=== PATIENT | female | born 1955 | race Caucasian/White ===

== ENCOUNTER 2024-09-23 03:25 | Inpatient (IN) | payer MEDICARE, OTHER, SELFPAY ==
[2024-09-22 23:44] VITALS: BP 126/73
[2024-09-22 23:46] VITALS: BP 126/73
[2024-09-23] VITALS (16 sets, daily range): BP systolic 119–145; BP diastolic 47–93; PULSE 73; O2SAT 94; BMI 41.8; BMI 40.5
--- NOTE | 2024-09-23 00:45 | ED.GENMED ---
History of Present Illness
General
Chief Complaint: Breathing Problem
Source: patient, ambulance crew and group home records
Exam Limitations: none
Time Seen by Provider: 09/23/24 00:06
Nursing documentation reviewed up to this point in time: agreed with
History of Present Illness
History of Present Illness:
69-year-old female presents to the emergency department with shortness of breath. She resides at [facility] and nursing called EMS due to her hypoxia. Patient has been a lifelong smoker, continuing to smoke 1 pack/day. Patient does have
dementia. She has been trached in the past.
Vital signs are stable. Patient not hypoxic
Nursing note reviewed. I agree with nursing documentation up to this point in time.
Home Meds and allergies reviewed.
NUMBER AND COMPLEXITY OF PROBLEMS ADDRESSED AT THE ENCOUNTER
� Chronic conditions affecting care: Dementia, persistent smoking, A-fib, hypertension, diabetes
� Acute Exacerbation and/or Progression of Chronic Illness: COPD exacerbation
� Differential Diagnosis includes: COPD, pneumonia
AMOUNT AND/OR COMPLEXITY OF DATA TO BE REVIEWED AND ANALYZED
I performed an independent evaluation of the following and my interpretation is:
EKG:
Pulse Ox: Hypoxic on room air.
University Manager: Sinus Rhythm
CT:
X-rays:
Ultrasound:
Laboratory Studies:
Other:
Review of other/old records: Most recent discharge summary from 07/14/2023
Clinical information was obtained by an independent historian:
Prescriptions/Medications Considered but not given:
Further testing considered but not performed:
RISK OF COMPLICATIONS AND/OR MORBIDITY OR MORTALITY OF PATIENT MANAGEMENT
Social determinants of health affecting care: Good Social Support, lives in group home.
Discussion with other providers:
Escalation of care including admission/observation vs risk of discharge considered: After being observed in the emergency department, patient is stable for discharge.
CRITICAL CARE NOTE:
Total Time (exclusive of procedures):
Update:
Past History
Past History
ED Past Medical History: Arrthythmia (afib), Asthma, CVA, HTN, NIDDM, Psychiatric (anxiety, depression) and Other (Migraine, UTI, )
ED Past Surgical History: Appendectomy, Cholecystectomy, ( X4), Gynecological (Hysterectomy), Tonsilectomy and Other (Trach)
Social History
Tobacco: Smoker
Alcohol: None
Drug: None
Personal:
Living: group home
Phy Exam
General Physical Exam
General Presentation: well appearing and no apparent distress
General Skin: warm and dry
General Habitus: normal
General Mental: alert
General Hydration: appears well hydrated
ENT Exam
ENT Exam: EOMI, pharynx normal, neck supple and normocephalic
Eye Exam
Eye Exam: PERRL, cornea clear and conjunctiva normal
Cardiovascular Exam
Cardiovascular Exam: regular rate/rhythm, no edema, no murmur and normal peripheral pulses
Pulmonary Exam
Pulmonary Exam: accessory muscle use, decreased breath sounds, generalized wheezing and respiratory distress
Gastrointestinal Exam
Gastrointestinal Exam: normal bowel sounds, non tender, soft, no organomegaly, no pulsatile mass and non distended
Neurological Exam
Neurological Exam: alert, oriented x3, no motor deficits and speech normal
Musculoskeletal Exam
Musculoskeletal Exam: full ROM and no edema
Skin Exam
Skin Exam: normal color, warm/dry, no rash and no petechia
Psychiatric Exam
Psychiatric Exam: normal mood/affect
Scores
Heart Failure Risk
Heart Failure Risk Score: Not Applicable
Course
Orders/Labs/Results
Orders:
Orders
09/22/24 23:48
EKG [Electrocardiogram (*1)] Urgent
Reason for Study: Shortness of Breath
COVID-19 Antigen Urgent
Source: Nasal Swab
Complete Blood Count/With Diff Urgent
Comprehensive Metabolic Panel Urgent
Troponin I Urgent
Influenza A+B Rapid Molecular Urgent
NIKKIE Source: Nasal Swab
Specimen Description:
09/22/24 23:49
EKG- Treatment ONCE
09/23/24 00:48
CR Chest - 2 Views Urgent
Comment:
Reason For Exam: dyspnea
09/23/24 03:11
Admit/Transfer Patient As Directed
Co-Sign Provider:
Level of Care: Inpatient admission
Assign to:: IMU- Intermediate Care
Physician / Group: hospitalist
Diagnosis: hypoxia
Reason for Hospitalization: hypoxic respiratory failure
Expected length of stay greater than two midnights?: Yes
ELOS- Estimated Length of Stay in days: 2
I certify the patient meets the requirements for IP care: Yes
PRN Pain Medication Management As Directed
May give lesser potent ordered pain med per pt: Yes
preference::
Protocol:: Medication orders for pain may be administered in a
manner that supports deferring to patient preference
when the pt is:
- Requesting an ordered lesser potent pain medication.
Least to most potent pain medications are defined
as: acetaminophen < NSAID < tramadol < opioids
(morphine, oxycodone, hydromorphone).
- Requesting a lesser dose of the same medication IF
ORDERED.
- Requesting a less intrusive route of administration
if both routes are prescribed by the provider (PO <
IV).
09/23/24 03:13
Code Status As Directed
Resuscitation Status: Full Code
09/23/24 03:15
Venous Blood Gas Stat
%Oxygen/Room Air: 28%
09/23/24 03:19
Add On- LAB Stat
Tests Added?: ammonia level
09/23/24 04:40
Albuterol Nebs [Ventolin Nebules] 2.5 mg INH R Q4HPRN PRN
Bisacodyl [Dulcolax] 10 mg RECTAL [id number] PRN
Docusate W/Senna [Senokot-S] 1 tablet PO BIDPRN PRN
Furosemide [Lasix] 20 mg IV NOW STA
Ondansetron Injectable [Zofran] 4 mg IV Q6HPRN PRN
Polyethylene Glycol Powder [Miralax] 17 grams PO DAILYPRN PRN
09/23/24 04:40
Consult Notification Routine
Specialty to Notify: Pulmonary
PULMONARY CONSULT Routine
Consulting Provider: Bobo Longo
Was physician already notified: No
Reason for consult: new hypoxia, unexplained
VTE Contraindication Routine
VTE Mechanical Device Contraindication: Medical Contraindication
Pharmocologic Contraindication: Medical Contraindication
Activity As Directed
Activity Level: With Assistance
Bedside Glucose Monitoring As Directed
Frequency: AC&HS
Vital Signs As Directed
Frequency: Per unit guidelines
O2 Therapy [RESP] Routine
Nasal Cannula Liter Flow: 2 LPM
Titrate/Wean O2 to maintain O2 sat greater than (%): 93
Peak Flow Rate [RESP] Routine
Quantity: 1
Smoking Cessation Counseling [RESP] Routine
09/23/24 Breakfast
1800 calorie (15 carb) Diabetic
At Your Request: Limited Participation
09/23/24 06:05
Basic Metabolic Panel IN AM
Complete Blood Count/No Diff IN AM
D-Dimer IN AM
Magnesium IN AM
NT-proBNP IN AM
Phenytoin [Dilantin] IN AM
Procalcitonin IN AM
PCT Algorithmm Indication: Respiratory
Valproic Acid Level [Depakane] IN AM
09/23/24 07:30
Insulin Aspart Corrective Mod [Novolog Flexpen-Moderate Resistance] See Protocol SC AC
09/23/24 08:00
Apixaban [Eliquis] 5 mg PO BID
Diclofenac 1% Topical Gel See Protocol TOPICAL TID
Apply 2 or 4 grams as per protocol to the following joints:: Other joint(s)
Other joint/location to apply to:: Right shoulder
Grams to be applied to other indicated joint/location:: 2 grams
Divalproex Delayed Rel. 12 Hr [Depakote (12 Hr Release)] 500 mg PO Q8
Glipizide [Glucotrol] 10 mg PO BID AT 0800,1700
Guaifenesin [Mucinex] 600 mg PO BID
Ipratropium/Albuterol Sulfate [Duoneb] 3 ml INH R QID
Phenytoin [Dilantin] 200 mg PO Q12
Sertraline HCl [Zoloft] 150 mg PO DAILY
mirabegron [Myrbetriq] See Dose Instructions PO DAILY
09/23/24 22:00
Atorvastatin [Lipitor] 40 mg PO HS
Cetirizine HCl [Zyrtec] 10 mg PO HS
Insulin Glargine Lantus [Lantus] 20 units Subcutaneous Insulin Syringe [Syringe-Insulin] 0 unit SC HS
Abnormal Lab Results
09/23/24 09/23/24
00:48 03:15
WBC 17.3 H 10^3/uL
(4.8-10.8)
MCV 101.1 H fL
(81.0-99.0)
MCH 32.7 H pg
(27.0-31.0)
MCHC 32.3 L g/dL
(33.0-37.0)
MPV 11.1 H fL
(7.4-10.4)
Abs Immat Gran (auto) 0.1 H 10^3/uL
(0-0.05)
Absolute Neuts (auto) 12.0 H 10^3/uL
(1.4-6.5)
Absolute Monos (auto) 1.2 H 10^3/uL
(0.1-0.6)
Immature Gran % 0.8 H %
(0-0.5)
Lymphocytes % 18.1 L %
(20.5-51.1)
VBG pH 7.30 L
(7.32-7.43)
VBG pCO2 60 H mmHg
(35-48)
VBG pO2 120 H mmHg
(30-50)
VBG HCO3 29.5 H mmol/L
(22-27)
BUN 20 H mg/dl
(7-17)
Glucose 192 H mg/dl
(70-99)
AST 43 H U/L
(14-36)
09/23/24 00:48
09/23/24 00:48
Vital Signs
Initial and Last Documented VS:
Initial Vital Signs
Pulse Ox
96
09/22/24 23:42
Last Documented Vital Signs
Temp Pulse Resp BP Pulse Ox
98.0 F 77 14 119/64 97
09/22/24 23:44 09/23/24 06:27 09/23/24 04:23 09/23/24 06:27 09/23/24 04:23
*Critical Care Note
Total Time (30-74mins, 75-104mins- exclusive of procedures): Not Applicable
ED Attending Note
-
Portions of this chart may have been created with voice recognition software.� Occasional wrong word or��sound alike� substitutions may have occurred due to the inherent limitations of voice recognition software.
Discharge Plan
Departure
Patient Disposition: Admit
Date of Disposition: 09/23/24
Time of Disposition: 01:52
Admit to: Telemetry
Presentation/result/management discussed w/ accepting MD/DO: Hospitalist
Discharge Problem:
COPD (chronic obstructive pulmonary disease), Hypoxia
Interventions
Interventions:
*Risk Screen - Suicide Last Done: 09/22/24 23:44
*General Assessment Last Done: 09/22/24 23:44
*Neglect/Abuse Screening Last Done: 09/22/24 23:44
ED- Fall Risk Assessment Last Done: 09/22/24 23:59
*ED COVID-19 Vaccine History Last Done: 09/23/24 00:33
*Nursing Disposition Last Done: 09/23/24 04:10
ED- Cardiac Assessment Last Done: 09/22/24 23:59
ED- Pulmonary Assessment Last Done: 09/22/24 23:59
Discharge Date and Time
Discharge Date/Time: 09/23/24 04:10
[2024-09-23 01:07] LABS: % Basophils 0.9 % (0-2); % Eosinophils 3.8 % (0-6); % Immature Granulocytes 0.8 % (0-0.5); % Lymphocytes 18.1 % (20.5-51.1); % Monocytes 7.1 % (1.7-9.3); % Neutrophils 69.3 % (42.2-75.2); Absolute Basophils 0.2 10^3/uL (0-0.2); Absolute Eosinophils 0.7 10^3/uL (0-0.7); Absolute Immature Granulocytes 0.1 10^3/uL (0-0.05); Absolute Lymphocytes 3.1 10^3/uL (1.2-3.4); Absolute Monocytes 1.2 10^3/uL (0.1-0.6); Hematocrit 46.4 % (37.0-47.0); Mean Corp Hgb Conc. 32.3 g/dL (33.0-37.0); Mean Corpuscular Hgb 32.7 pg (27.0-31.0); Mean Corpuscular Volume 101.1 fL (81.0-99.0); Mean Platelet Volume 11.1 fL (7.4-10.4); Nucleated Red Blood Cells % 0 %; Platelet Count 322 10^3/uL (130-400); Red Blood Cell Count 4.59 10^6/uL (4.20-5.40); White Blood Cell Count 17.3 10^3/uL (4.8-10.8)
[2024-09-23 01:16] LABS: COVID-19 Antigen Negative (Negative)
[2024-09-23 01:18] LABS: ALT (SGPT) 34 U/L (0-35); AST (SGOT) 43 U/L (14-36); Blood Urea Nitrogen 20 mg/dl (7-17); Calcium 9.6 mg/dl (8.4-10.2); Carbon Dioxide 23 mmol/L (22-30); Chloride 102 mmol/L (98-107); Estimated Creatinine Clearance 102 ml/min; Glucose 192 mg/dl (70-99); Sodium 139 mmol/L (135-145); Total Bilirubin 0.4 mg/dl (0.2-1.3); Total Protein 7.2 g/dl (6.3-8.2); eGFR > 60.00
[2024-09-23 01:21] LABS: Troponin I < 0.012 ng/ml
[2024-09-23 01:44] LABS: Albumin 4.3 g/dl (3.5-5.0); Alkaline Phosphatase 97 U/L (38-126); Potassium 4.1 mmol/L (3.5-5.1)
--- NOTE | 2024-09-23 02:54 | HPS.HSE ---
Family Physician
-
Family Physician: INTERVIEWE UNKNOWN - PT NOT
Chief Complaint
-
Hypoxia
History of Present Illness
Patient is a 69-year-old female who has a past medical history of COPD not on home O2, hypertension, generalized anxiety disorder, atrial fibrillation, type 2 diabetes, hypertension who presented from living facility at [facility] with hypoxia.
Patient unable to provide much history. She is sleepy but arousable and denies any specific symptoms. Per EMS she was found to be hypoxic to 79% on room air. She was placed on nasal cannula oxygen with improvement to 92% on 2 L. She was found to
be lethargic which is different from apparent baseline. She is known to be incontinent of the bladder and bowel. At baseline she appears to be alert and oriented x 3. Patient states that her breathing is no different from baseline. She denies
any chest pain, cough, dyspnea on exertion or even shortness of breath at rest. He denies having any fevers or chills. Per EMS she had blood glucose of 138 when they found her with otherwise normal vital signs aside from the hypoxia.
Initial workup in the emergency department shows a BP of 130/60, she was satting 96% on 2 L, she was afebrile, pulse was 53 and regular. ECG showed normal sinus rhythm with a rate of 80 and right bundle which is unchanged. He had a white count of
17,000 with normal hemoglobin and platelet counts. Electrolytes BUN/creatinine within normal limits. Troponin was negative. COVID was negative. Influenza was negative. X-ray was obtained which was limited by body habitus but cannot rule out
pulmonary edema or retrocardiac infiltrates.
Medical History
Past Medical History
Past Medical History: Reports Other
Additional Past Medical History:
Ygt-lnpayca-gdtshypxm diabetes
Hypertension
Atrial fibrillation
GERD
Anxiety
Morbid obesity
COPD not on home O2
Past Surgical History: Reports Other
Social History
Alcohol: None
Drug: None
Personal: Single
Living: Assisted Living
Employment: Retired
Family History
Family History: Not pertinent
Allergies / Home Medications
Allergies reflects when Allergies were last updated in [facility].
Home Medications with original date entered in [facility]
Allergy/Medication List:
Allergies
Allergy/AdvReac Type Severity Reaction Status Date / Time
acetaminophen [From Tylenol] Allergy Swelling Verified 09/22/24 23:44
aspirin Allergy Swelling Verified 09/22/24 23:44
bee pollen Allergy Swelling Verified 09/22/24 23:44
Fish Containing Products Allergy Swelling Verified 09/22/24 23:44
Milk Containing Products Allergy Swelling Verified 09/22/24 23:44
(Dairy)
[Milk Containing Products]
Penicillins Allergy Swelling Verified 09/22/24 23:44
phenobarbital Allergy Swelling Verified 09/22/24 23:44
shellfish derived Allergy Swelling Verified 09/22/24 23:44
Home Medications
albuterol sulfate 90 mcg/actuation aerosol inhaler 2 puff inhalation R Q4 PRN wheezing 07/14/23
ammonium lactate 12 % lotion 1 applic topical Q12H 07/14/23
apixaban 5 mg tablet 5 mg PO BID 07/14/23
ascorbic acid (vitamin C) 500 mg tablet 500 mg PO DAILY 07/14/23
atorvastatin 40 mg tablet 40 mg PO HS 07/14/23
benzonatate 100 mg capsule 100 mg PO BID 07/14/23
bisacodyl 10 mg rectal suppository (Dulcolax (bisacodyl)) [address] DAILY PRN if no bm in 24hrs after MOM 07/14/23
cholecalciferol (vitamin D3) 50 mcg (2,000 unit) tablet (Vitamin D3) 50 mcg PO DAILY 07/14/23
clonazepam 0.5 mg tablet 0.5 mg PO DAILY@1300 07/14/23
clonazepam 1 mg tablet 1 mg PO BID 07/14/23
dextromethorphan 20 mg-quinidine 10 mg capsule 1 cap PO Q12H 07/14/23
dextromethorphan 5 mg-benzocaine 6 mg-menthol 10 mg lozenges (Chloraseptic Total) 1 naz PO Q2H PRN cough 07/14/23
dextromethorphan-guaifenesin 5 mg-100 mg/5 mL oral liquid (Robitussin Honey Max DM) 20 ml PO Q4H PRN cough/congestion 07/14/23
diclofenac sodium 1 % topical gel 1 ea topical Q8H 07/14/23
diphenhydramine HCl 25 mg tablet 25 mg PO Q12H PRN allergies 07/14/23
divalproex 500 mg tablet,delayed release 500 mg PO Q8H 07/14/23
gabapentin 600 mg tablet 600 mg PO Q8H 07/14/23
glipizide 5 mg tablet 10 mg PO BID 07/14/23
glucagon 1 mg/0.2 mL subcutaneous auto-injector (Gvoke HypoPen 2-Pack) 1 mg SC ONCE PRN hypoglycemia, blood sugar <50 07/14/23
guaifenesin 600 mg tablet, extended release 12 hr 600 mg PO BID 07/14/23
insulin glargine-yfgn 100 unit/mL subcutaneous solution 26 unit SC .AM AND HS 07/14/23
lactase 3,000 unit tablet (Lactaid) 9,000 unit PO TID 07/14/23
lidocaine 5 % topical patch 1 patch topical DAILY 07/14/23
loperamide 2 mg tablet 2 mg PO Q8H PRN diarrhea 07/14/23
magnesium hydroxide 400 mg/5 mL oral suspension (Milk of Magnesia) 30 ml PO DAILY PRN if no bm x 3 days 07/14/23
melatonin 3 mg tablet 9 mg PO HS 07/14/23
metformin 1,000 mg tablet 1,000 mg PO BID 07/14/23
mirabegron 50 mg tablet,extended release 24 hr (Myrbetriq) 50 mg PO DAILY 07/14/23
omeprazole 20 mg tablet,delayed release 20 mg PO DAILY 07/14/23
ondansetron HCl 4 mg tablet 4 mg PO Q8H PRN nausea/vomiting 07/14/23
phenytoin 50 mg chewable tablet 200 mg PO Q12H 07/14/23
propylene glycol 1 %-glycerin 0.3 % eye drops 2 drp BOTH EYES Q4H PRN eye irratation 07/14/23
sertraline 50 mg tablet 150 mg PO DAILY 07/14/23
sodium phosphates 19 gram-7 gram/118 mL enema (Fleet Enema) [address] DAILY PRN if no bm in 24hrs after bisacodyl 07/14/23
tramadol 50 mg tablet 50 mg PO Q8H PRN moderate pain 07/14/23
trazodone 50 mg tablet 50 mg PO HS 07/14/23
cetirizine 10 mg capsule (Zyrtec) 10 mg PO HS 09/23/24
cyclobenzaprine 5 mg tablet 5 mg PO DAILY PRN muscle pain 09/23/24
diclofenac sodium 1 % topical gel 1 ea topical BID 09/23/24
fluticasone propionate 50 mcg/actuation nasal spray,suspension 2 spray intranasal DAILY 09/23/24
lidocaine 5 % topical patch 1 patch topical DAILY 09/23/24
loratadine 10 mg tablet (Claritin) 10 mg PO DAILY 09/23/24
mineral oil-hydrophil petrolat topical ointment 1 applic topical BID 09/23/24
niacin 500 mg tablet (Niacor) 500 mg PO HS 09/23/24
phenol-phenolate sodium lozenges 1 naz Q2H PRN cough 09/23/24
sodium chloride 0.65 % nasal spray aerosol (Saline Mist) 2 spray intranasal Q4H 09/23/24
Review of Systems
-
History Source: Patient
Constitutional: Reports No Symptoms
EENT: Reports No Symptoms
Respiratory: Reports No Symptoms
Cardiac: Reports No Symptoms
Abdomen/GI: Reports No Symptoms
: Reports No Symptoms
Musculoskeletal: Reports No Symptoms
Skin: Reports No Symptoms
Neurological: Reports No Symptoms
Endocrine: Reports No Symptoms
Hematologic/Lymphatic: Reports No Symptoms
Psych: Reports No Symptoms
Physical Exam
Vital Signs
Vital Signs
Temp Pulse Resp BP Pulse Ox
98.0 F 86 19 129/61 97
09/22/24 23:44 09/23/24 02:45 09/23/24 02:45 09/23/24 02:00 09/23/24 02:45
Physical Exam
General: Well Developed, Well Nourished, Comfortable and Morbidly Obese
HEENT: NormoCephalic, Anicteric, Moist mucous membranes, Atraumatic, PERRLA, No Ptosis and Oxygen
Respiratory: Clear, Non Labored Respirations and Other (No wheezes appreciated, no crackles appreciated however listening was mostly anterior and unable to rotate patient for posterior auscultation.)
Cardiac: S1/S2 and Regular Rhythm
Breast: Deferred by me
GI: Soft, Non Tender and Non Distended
Rectal: Deferred by Provider
Genito-urinary: Deferred by me
Musculoskeletal: No Clubbing, No Cyanosis and No Edema
Skin: Warm
Neuro: AO x 3
Hematologic/Lymphatic: No Lymphadenopathy
Psych: Calm
Laboratory Results
-
09/23/24 00:48
09/23/24 00:48
Laboratory Results
Total Bilirubin 0.4 mg/dl (0.2-1.3) 09/23/24 00:48
AST 43 U/L (14-36) H 09/23/24 00:48
ALT 34 U/L (0-35) 09/23/24 00:48
Alkaline Phosphatase 97 U/L (38-126) 09/23/24 00:48
Troponin I < 0.012 ng/ml 09/23/24 00:48
Data Reviewed
-
Diagnostic Radiology: Image Personally Visualized and interpreted
Medical Tests (Nuc Med, Echo, EKG etc): Image Personally Visualized and interpreted
Lab Data: Labs Reviewed by me
Old Records: Reviewed
Impression/Plan
-
IMPRESSION:
Patient with multiple comorbidities who is nonambulatory at baseline presents to the emergency department after being found to be hypoxic. Patient herself denies symptoms including cough chest pain orthopnea or PND. She is somnolent but easily
arousable. Medication list raises concern for polypharmacy and respiratory depression. Initial examination in the ED shows crowding on the chest x-ray but no obvious infiltrates. She has a leukocytosis but labs are otherwise unremarkable. COVID
was negative. Flu was negative. ECG without acute ischemia and troponin was negative. She denies history of TAYLER or OHS.
PLAN:
1. Hypoxia - Responded to supplemental oxygen. No O2 requirement at baseline. No wheezing. No crackles. No history of CHF. No pulmonary edema. Could have mild COPD exacerbation but not obvious on exam. Life-long smoker and still smokes.
- admit to telemetry
- check blood gas, if acidemic, will place on bipap overnight for support
- check bnp and echo
- nebs RTC for now, hold abx and steroids, check procalcitonin
- lasix 20mg iv trial but no current evidence for CHF
- d-dimer, ammonia and depakote level an
- hold sedatives except for antiepileptic drugs [holding trazodone, gabapentin, clonazepam, flexeril, melatonin and tramadol for now]
- Pulmonary consultation
2. AFIB
- continue apixaban
- no current rate agents.
3. Seizure d/o
- check dilantin level
- continue phenytoin 200mg bid
- continue depakote for now pending levels
4. DM II
- glargine 20 units hs (on 26 at home)
- insulin sliding scale moderate
- hold metformin
- continue glipizide
DVT PPX - on apixaban
Code status - full code
[2024-09-23 03:24] LABS: Venous Blood Gas B.E. 1.4 mmol/L (-4 to +4); Venous Blood Gas HCO3 29.5 mmol/L (22-27); Venous Blood Gas O2 Sat % 99.7 %; Venous Blood Gas pCO2 60 mmHg (35-48); Venous Blood Gas pO2 120 mmHg (30-50)
[2024-09-23 03:35] LABS: Venous Blood Gas O2 Therapy 28
--- NOTE | 2024-09-23 06:01 | PTCARENOTE ---
pt received from ED RN. Pt AAOx3, does have slight delay when answering questions, does not seem to be the best historian. From [facility]. pt does answer yes to abuse screening questions but denies wanting to talk to social welfare clerk. Admission questions
done to the best of thus RNs ability. pt frequently answers yes/ no to questions. Pt on 3L o2 satting 95%, lungs clear, no cough. NSR on monitor. VSS. Pt inc urine, PW in use. safe environment maintained, call light in reach.
[2024-09-23] MEDS: LASIX 20 MG IV (06:27)
[2024-09-23 06:30] LABS: Hematocrit 45.5 % (37.0-47.0); Hemoglobin 14.8 g/dL (12.0-16.0); Mean Corp Hgb Conc. 32.5 g/dL (33.0-37.0); Mean Corpuscular Hgb 32.7 pg (27.0-31.0); Mean Corpuscular Volume 100.4 fL (81.0-99.0); Mean Platelet Volume 11.1 fL (7.4-10.4); Platelet Count 295 10^3/uL (130-400); Red Blood Cell Count 4.53 10^6/uL (4.20-5.40); Red Cell Dist. Width 13.9 % (11.5-14.5); White Blood Cell Count 12.4 10^3/uL (4.8-10.8)
[2024-09-23 06:36] LABS: Ammonia 34 umol/L (9-30)
[2024-09-23 06:39] LABS: D-Dimer < 0.27 ug/mlFEU (0.00-0.50)
[2024-09-23 06:51] LABS: Dilantin 11.9 ug/ml (10-20)
[2024-09-23 06:53] LABS: NT-proBNP 196 pg/ml
[2024-09-23 07:05] LABS: Blood Urea Nitrogen 19 mg/dl (7-17); Calcium 9.8 mg/dl (8.4-10.2); Carbon Dioxide 28 mmol/L (22-30); Chloride 100 mmol/L (98-107); Estimated Creatinine Clearance 86 ml/min; Glucose 124 mg/dl (70-99); Magnesium 1.8 mg/dl (1.6-2.3); Sodium 138 mmol/L (135-145); eGFR > 60.00
[2024-09-23 07:13] LABS: Procalcitonin < 0.05 ng/ml (0.0-0.25)
[2024-09-23] MEDS: DUONEB 3 ML INH ×4 (07:24→20:14)
[2024-09-23] MEDS: ZOLOFT 150 MG PO (09:07)
[2024-09-23] MEDS: ELIQUIS 5 MG PO ×2 (09:07→19:52)
[2024-09-23] MEDS: NOVOLOG FLEXPEN-MODERATE RESISTANCE SC (09:07)
[2024-09-23] MEDS: DILANTIN 200 MG PO ×2 (09:07→19:52)
[2024-09-23] MEDS: MUCINEX 600 MG PO ×2 (09:07→19:51)
[2024-09-23] MEDS: DICLOFENAC 1% TOPICAL GEL 100 GRAM TOPICAL ×3 (09:08→21:27)
[2024-09-23] MEDS: DEPAKOTE (12 HR RELEASE) 500 MG PO ×3 (09:08→23:27)
[2024-09-23] MEDS: GLUCOTROL 10 MG PO ×2 (09:08→17:26)
[2024-09-23 09:10] LABS: Glucose - Point of Care 109 mg/dl (70-99)
--- NOTE | 2024-09-23 09:18 | PTCARENOTE ---
Patient received from educator senior clinical. Patient resting comfortably in bed. AAO but some confused speech, VSS. No events noted overnight. No complaints of pain at this time. Currently on 3L N/C, will wean as tolerated. Purewick in place. No tests
scheduled at this time. Call coppola in reach.
--- NOTE | 2024-09-23 09:51 | CON.PUL ---
Consultation
Consultation Request
Date/Time Consultation Requested: 09/23/2024-8 AM
Date/Time Consultation Performed: 09/23/2024-8:30 AM
Requesting Provider: Hospitalist
Performing Provider: Dr. Nielson
Reason for Consultation: Shortness of breath
Medical History
-
Chief Complaint: Shortness of breath
History of Present Illness:
69-year-old female smoker with a history of COPD, hypertension, anxiety, atrial fibrillation, diabetes who presented with some lethargy and shortness of breath found to be hypoxemic and pulmonary consulted for COPD exacerbation/hypoxemia 09/23/2024.
Patient was sleeping, snoring, mild apneas when I walked into the room. She was arousable and answer questions appropriately. She denies any shortness of breath at rest but admits to shortness of breath with exertion and denies any chest pain,
chest tightness, chest congestion, mucous, abdominal pain, or increased swelling.
Past Medical History
Past Medical History: None (COPD. Cigarette smoker. Hypertension. Atrial fibrillation. GERD. Anxiety. Morbid obesity. Obstructive sleep apnea suspected.)
Social History
Tobacco: Smoker (1 pack/day for 55 years)
Alcohol: None
Drug: None
Personal: Single
Living: Assisted Living
Occupational Exposures: No known asbestos exposure
Environmental Exposures: No known tuberculosis exposure
Family History
Family History: Reviewed & Not Pertinent
Allergies / Home Medications
Allergies
Allergy/AdvReac Type Severity Reaction Status Date / Time
acetaminophen [From Tylenol] Allergy Swelling Verified 09/22/24 23:44
aspirin Allergy Swelling Verified 09/22/24 23:44
bee pollen Allergy Swelling Verified 09/22/24 23:44
Fish Containing Products Allergy Swelling Verified 09/22/24 23:44
Milk Containing Products Allergy Swelling Verified 09/22/24 23:44
(Dairy)
[Milk Containing Products]
Penicillins Allergy Swelling Verified 09/22/24 23:44
phenobarbital Allergy Swelling Verified 09/22/24 23:44
shellfish derived Allergy Swelling Verified 09/22/24 23:44
Home Medications
�Medication �Instructions �Recorded �Confirmed �Last Taken �Type
albuterol sulfate 90 mcg/actuation 2 puff inhalation R Q4 PRN wheezing 07/14/23 09/23/24 Unknown History
aerosol inhaler
ammonium lactate 12 % lotion 1 applic topical Q12H 07/14/23 09/23/24 Unknown History
apixaban 5 mg tablet 5 mg PO BID 07/14/23 09/23/24 Unknown History
ascorbic acid (vitamin C) 500 mg 500 mg PO DAILY 07/14/23 09/23/24 Unknown History
tablet
atorvastatin 40 mg tablet 40 mg PO HS 07/14/23 09/23/24 Unknown History
benzonatate 100 mg capsule 100 mg PO BID 07/14/23 09/23/24 Unknown History
bisacodyl 10 mg rectal suppository 10 mg SC DAILY PRN if no bm in 07/14/23 09/23/24 Unknown History
(Dulcolax (bisacodyl)) 24hrs after MOM
cholecalciferol (vitamin D3) 50 50 mcg PO DAILY 07/14/23 09/23/24 Unknown History
mcg (2,000 unit) tablet (Vitamin
D3)
clonazepam 0.5 mg tablet 0.5 mg PO DAILY@1300 07/14/23 09/23/24 Unknown History
clonazepam 1 mg tablet 1 mg PO BID 07/14/23 09/23/24 Unknown History
dextromethorphan 20 mg-quinidine 1 cap PO Q12H 07/14/23 09/23/24 Unknown History
10 mg capsule
dextromethorphan 5 mg-benzocaine 6 1 naz PO Q2H PRN cough 07/14/23 09/23/24 Unknown History
mg-menthol 10 mg lozenges
(Chloraseptic Total)
dextromethorphan-guaifenesin 5 20 ml PO Q4H PRN cough/congestion 07/14/23 09/23/24 Unknown History
mg-100 mg/5 mL oral liquid
(Robitussin Honey Max DM)
diclofenac sodium 1 % topical gel 1 ea topical Q8H 07/14/23 09/23/24 Unknown History
diphenhydramine HCl 25 mg tablet 25 mg PO Q12H PRN allergies 07/14/23 09/23/24 Unknown History
divalproex 500 mg tablet,delayed 500 mg PO Q8H 07/14/23 09/23/24 Unknown History
release
gabapentin 600 mg tablet 600 mg PO Q8H 07/14/23 09/23/24 Unknown History
glipizide 5 mg tablet 10 mg PO BID 07/14/23 09/23/24 Unknown History
glucagon 1 mg/0.2 mL subcutaneous 1 mg SC ONCE PRN hypoglycemia, 07/14/23 09/23/24 Unknown History
auto-injector (Gvoke HypoPen blood sugar <50
2-Pack)
guaifenesin 600 mg tablet, 600 mg PO BID 07/14/23 09/23/24 Unknown History
extended release 12 hr
insulin glargine-yfgn 100 unit/mL 26 unit SC .AM AND HS 07/14/23 09/23/24 Unknown History
subcutaneous solution
lactase 3,000 unit tablet (Lactaid) 9,000 unit PO TID 07/14/23 09/23/24 Unknown History
lidocaine 5 % topical patch 1 patch topical DAILY 07/14/23 09/23/24 Unknown History
loperamide 2 mg tablet 2 mg PO Q8H PRN diarrhea 07/14/23 09/23/24 Unknown History
magnesium hydroxide 400 mg/5 mL 30 ml PO DAILY PRN if no bm x 3 07/14/23 09/23/24 Unknown History
oral suspension (Milk of Magnesia) days
melatonin 3 mg tablet 9 mg PO HS 07/14/23 09/23/24 Unknown History
metformin 1,000 mg tablet 1,000 mg PO BID 07/14/23 09/23/24 Unknown History
mirabegron 50 mg tablet,extended 50 mg PO DAILY 07/14/23 09/23/24 Unknown History
release 24 hr (Myrbetriq)
omeprazole 20 mg tablet,delayed 20 mg PO DAILY 07/14/23 09/23/24 Unknown History
release
ondansetron HCl 4 mg tablet 4 mg PO Q8H PRN nausea/vomiting 07/14/23 09/23/24 Unknown History
phenytoin 50 mg chewable tablet 200 mg PO Q12H 07/14/23 09/23/24 Unknown History
propylene glycol 1 %-glycerin 0.3 2 drp BOTH EYES Q4H PRN eye 07/14/23 09/23/24 Unknown History
% eye drops irratation
sertraline 50 mg tablet 150 mg PO DAILY 07/14/23 09/23/24 Unknown History
sodium phosphates 19 gram-7 118 ml SC DAILY PRN if no bm in 07/14/23 09/23/24 Unknown History
gram/118 mL enema (Fleet Enema) 24hrs after bisacodyl
tramadol 50 mg tablet 50 mg PO Q8H PRN moderate pain 07/14/23 09/23/24 Unknown History
trazodone 50 mg tablet 50 mg PO HS 07/14/23 09/23/24 Unknown History
cetirizine 10 mg capsule (Zyrtec) 10 mg PO HS 09/23/24 09/23/24 Unknown History
cyclobenzaprine 5 mg tablet 5 mg PO DAILY PRN muscle pain 09/23/24 09/23/24 Unknown History
diclofenac sodium 1 % topical gel 1 ea topical BID 09/23/24 09/23/24 Unknown History
fluticasone propionate 50 2 spray intranasal DAILY 09/23/24 09/23/24 Unknown History
mcg/actuation nasal
spray,suspension
lidocaine 5 % topical patch 1 patch topical DAILY 09/23/24 09/23/24 Unknown History
loratadine 10 mg tablet (Claritin) 10 mg PO DAILY 09/23/24 09/23/24 Unknown History
mineral oil-hydrophil petrolat 1 applic topical BID 09/23/24 09/23/24 Unknown History
topical ointment
niacin 500 mg tablet (Niacor) 500 mg PO HS 09/23/24 09/23/24 Unknown History
phenol-phenolate sodium lozenges 1 naz Q2H PRN cough 09/23/24 09/23/24 Unknown History
sodium chloride 0.65 % nasal spray 2 spray intranasal Q4H 09/23/24 09/23/24 Unknown History
aerosol (Saline Mist)
Review of Systems
-
Unable to Obtain full review of systems at this time due to: Other (Per HPI)
Vitals / Labs / Diagnostic Testing
Vital Signs
Temp Pulse Resp BP Pulse Ox
98.0 F 74 18 119/64 97
09/23/24 07:26 09/23/24 07:28 09/23/24 07:28 09/23/24 06:27 09/23/24 07:28
Lab Data
09/23/24 06:05
09/23/24 06:05
Microbiology
09/23/24 00:48 Nasal Swab Influenza Types A & B (KAREN) - Final
Negative for Influenza A & B, NAAT
Negative results must be combined with clinical observations
and patient history.
Nucleic Acid Amplification test (NAAT)performed on the
[employer] platform.
Diagnostic Testing:
Physical Exam
-
Exam:
Well-nourished and well-developed in no apparent distress
HEENT-atraumatic, normocephalic, thick neck
Neck-supple, no JVD, no bruit
Heart-regular rate and rhythm-no murmurs, rubs or gallops
Chest with diminished breath sounds, prolonged expiratory time, rare basilar crackles and forced expiratory wheezes bilaterally
Back-no tenderness
Abdomen-soft, nontender, nondistended, no hepatosplenomegaly
Extremities-no cyanosis, clubbing, lower extremity edema
Integument-intact, no rashes, lesions or ecchymosis
Neurology-alert and oriented, nonfocal motor and sensory exam
Assessment
-
69-year-old female smoker with a history of COPD, hypertension, anxiety, atrial fibrillation, diabetes who presented with some lethargy and shortness of breath found to be hypoxemic and pulmonary consulted for COPD exacerbation/hypoxemia 09/23/2024.
Suspect advanced COPD with acute exacerbation
Acute on top of chronic hypercapnia
VBG 09/23/2024--60/120/7.30
Leukocytosis
Hyperglycemia
CHF-EF unknown
TAYLER/obesity hypoventilation suspected
Conditions present prior to admission:
COPD.
Cigarette smoker.
Hypertension.
Atrial fibrillation.
GERD.
Anxiety.
Morbid obesity.
Obstructive sleep apnea suspected.
Plan
Respiratory decompensation likely due to underlying COPD and possible volume overload
Supplemental oxygen as needed
Aspiration precautions
DuoNebs
Pulmicort nebulizers
Mucinex
Check spirometry-suspect severe obstructive lung disease
Obstructive sleep apnea also suspected
BiPAP as needed-suspect component of chronic hypercapnia/obesity hypoventilation syndrome
D-dimer negative
Check cultures
Observe off antibiotics
Procalcitonin negative
Monitor leukocytosis, temperature curve and signs of infection
Gentle diuresis
Check echocardiogram
Monitor renal function, electrolytes, intake/output, lower extremity edema and weight
Replace electrolytes as needed
Monitor blood sugar
Insulin supplementation as needed
Smoking cessation counseling-counseling provided-'I do not want to'
Nicotine patch if needed
DVT prophylaxis-on Eliquis
Nutrition
Early mobilization
Reviewed with nursing
Outpatient pulmonary/sleep disorders follow-up recommended-advised the patient-she will 'think about it'-information will be left on chart
Diagnostic data:
Chest x-ray 09/23/2024-mild CHF
Data Reviewed
-
EKG: Report reviewed by me
Radiology: Image personally visualized and interpreted and Report reviewed by me
Medical Tests (Nuc Med, Echo etc): Report reviewed by me
Labs: Labs reviewed by me
Old Records: Reviewed
Total Time Spent with Patient (in minutes): 55
--- NOTE | 2024-09-23 11:52 | CM ---
Patient seen at bedside in IMU. Patient is LTC from [facility] and uses a wheelchair but will walk with Therapy. Patient has history of TBI per liaison and smoking is very important to her. CM will send referral via all scripts. If patient
medically ready for discharge over weekend. please call Ayla at [phone]. Patient report to [phone]/fax [phone]. CM will continue to follow for discharge planning needs.
Plan; return to SNF when medically appropriate.
[2024-09-23] MEDS: NOVOLOG FLEXPEN-MODERATE RESISTANCE 1 UNITS SC ×2 (13:35→17:27)
[2024-09-23 13:46] LABS: Glucose - Point of Care 187 mg/dl (70-99)
--- NOTE | 2024-09-23 15:03 | PTOTSP ---
Dysphagia Evaluation
Patient with mild oral stage differences related to missing dentition. Risk factors for dysphagia present: COPD, GERD, TBI. Chest X-ray without PNA.
Recommend:
1. Regular, Thin Liquids
2. Medications as best tolerated
3. Strategies: upright to 90 degrees, partial assistance, small single sips/bites, slow rate, reflux precautions
4. Oral care 2-3x daily
5. Will f/u briefly at the acute care level. If concerned for aspiration component, consider video swallow study.
[2024-09-23] MEDS: DECADRON 4 MG PO ×2 (15:39→21:27)
[2024-09-23 17:35] LABS: Glucose - Point of Care 186 mg/dl (70-99)
[2024-09-23] MEDS: ZOFRAN 4 MG IV (17:38)
--- NOTE | 2024-09-23 17:47 | W.PN.UPDATE ---
Update Note
Progress Note Update
Admitted early hours of this morning.
Admitted with hypoxia. Patient with a TBI and poor historian.
Without respiratory distress but requiring oxygen.
She is got bilateral expiratory wheeze and some basilar crackles.
Will get a speech eval to rule out any aspiration.
Appreciate pulmonary input. Would add steroids for acute reactive airway disease and empirical doxycylcine for possible COPD flare.
ECHO with normal EF. No significant VHD.
--- NOTE | 2024-09-23 18:32 | W.PN.HOSP.TC ---
Today's Communication/Plan
-
.
Assessment / Plan
Assessment / Plan
1. COPD with Acute Exacerbation
-VBG: pH 7.3, pCO2 60, pO2 120, HCO3 29.5.
-2 L by nasal cannula; wean as tolerated. Patient denies home O2 use.
-Aspiration precautions, swallow study today.
-Patient is cleared for CLD diet.
-DuoNebs, Pulmicort, Mucinex
-Consider spirometry; appreciate pulm
-24 hours of dexamethasone 4 g every 8 hours
-Empirical doxycycline
2. Leukocytosis
-WBC 17 on admission, 12.4 this morning.
-Procalcitonin negative, monitor leukocytosis/temperature/signs of infection
3. Possible TAYLER
-Appreciate pulm, consider as needed BiPAP.
4. Type 2 diabetes mellitus
-Insulin glargine 20 units nightly
-Insulin sliding scale
-Hold metformin
-Continue glipizide
5. Seizure disorder
-Continue home meds
6. A-fib
-Continue Eliquis
-No current rate control agents
Full code/home Eliquis
Anticipated Discharge: 24 - 48 hours
Subjective/Interval History
-
Date of Service: September 23, 2024
Patient seen and examined by resting comfortably in bed. Patient is a poor historian. Patient has history of COPD, however without home O2 and was 79% on room air at [facility] yesterday. Oxygen saturation rebounds back into the 90s on 2 L
nasal cannula. Patient is currently without respiratory distress however still requiring 2 L by nasal cannula.
Objective Data
-
Labs:
Laboratory Results
09/23/24
06:05
Sodium 138
Potassium 4.0
Chloride 100
Carbon Dioxide 28
BUN 19 H
Creatinine 0.7
Glucose 124 H
Calcium 9.8
Vital Signs:
Vital Signs
Temp Pulse Resp BP Pulse Ox
98.9 F 87 15 125/93 85
09/23/24 15:15 09/23/24 18:00 09/23/24 18:00 09/23/24 16:02 09/23/24 18:00
I&O
09/22/24 09/23/24 09/24/24
06:59 06:59 06:59
Intake Total 240 / 240
Output Total 600 / 600
Balance -360 / -360
Review of Systems
-
History Source: Patient
All other systems: Reviewed and negative
Physical Exam
-
General: No Apparent Distress, Comfortable and Other (on 2L by NC)
HEENT: Normocephalic, Atraumatic and Other (previous tracheostomy scar)
Respiratory: Clear to Auscultation, Wheezes and Crackles
Cardiac: Regular Rhythm and S1/S2
GI: Soft and Nontender
Musculoskeletal: No Clubbing, No Cyanosis and No Edema
Neuro: Awake and Alert
Psych: Calm
Data Reviewed
-
Diagnostic Radiology: Report Reviewed by me
Labs: Labs Reviewed by me
[2024-09-23] MEDS: VIBRAMYCIN 100 MG PO (19:51)
[2024-09-23] MEDS: PULMICORT 0.5 MG INH (20:14)
[2024-09-23] MEDS: ZYRTEC 10 MG PO (21:27)
[2024-09-23] MEDS: LANTUS 0.2 UNITS SC (21:27)
[2024-09-23] MEDS: LIPITOR 40 MG PO (21:27)
[2024-09-23 21:37] LABS: Glucose - Point of Care 214 mg/dl (70-99)
[2024-09-24] VITALS (8 sets, daily range): BP systolic 113–159; BP diastolic 54–81; BMI 40.1
--- NOTE | 2024-09-24 | PTCARENOTE ---
Assumed care of patient at 1900, nursing assessment completed and as documented. Hygiene care provided, repositioned for comfort, medications given without difficulty. IVT notified of poor access and new IV placed, see worklist. VSS, call coppola
within reach, bed alarmed, care ongoing.
[2024-09-24] MEDS: DECADRON 4 MG PO (05:28)
[2024-09-24] MEDS: PULMICORT 0.5 MG INH ×2 (07:33→19:55)
[2024-09-24] MEDS: DUONEB 3 ML INH ×2 (07:33→19:55)
[2024-09-24] MEDS: NOVOLOG FLEXPEN-MODERATE RESISTANCE SC (08:18)
[2024-09-24 08:28] LABS: Glucose - Point of Care 138 mg/dl (70-99)
--- NOTE | 2024-09-24 08:41 | W.PN.HOSP.TC ---
Today's Communication/Plan
-
Tx to tele
Assessment / Plan
Assessment / Plan
1. COPD with Acute Exacerbation
-VBG: pH 7.3, pCO2 60, pO2 120, HCO3 29.5.
-2 L by nasal cannula; wean as tolerated. Patient denies home O2 use.
-Speech eval noted-cleared for regular and thin liquids
-DuoNebs, Pulmicort, Mucinex
-appreciate pulm input
-Improved wheeze. Decrease the steroids.
-Continue with empirical doxycycline
Chest x-ray suggest mild pulmonary edema but cannot rule out underlying chronic interstitial lung disease. Echo with normal EF and no significant valvular heart disease on this admission. BNP was within the normal limits. Clinically no lower
extremity edema or JVD. Doubt CHF.
2. Leukocytosis
-WBC 17 on admission, 12.4 this morning.
-Procalcitonin negative, monitor leukocytosis/temperature/signs of infection
-Continue with empirical doxycycline
3. Possible TAYLER
-Appreciate pulm, consider as needed BiPAP.
4. Type 2 diabetes mellitus
-Insulin glargine 20 units nightly
-Insulin sliding scale
-Hold metformin
-Continue glipizide
5. Seizure disorder
-Continue home meds
6. A-fib
-Continue Eliquis
-No current rate control agents
Full code/home Eliquis
Discussed with RN
Transfer to tele
Anticipated Discharge: 24 - 48 hours
Subjective/Interval History
-
Date of Service: September 24, 2024
Patient with TBI and has cognitive impairment.
Oriented to self and person only.
Denies shortness of breath but she thinks she has some cough. Denies any chest pain.
No overnight events.
Objective Data
-
Vital Signs:
Vital Signs
Temp Pulse Resp BP Pulse Ox
98.3 F 74 20 132/57 97
09/24/24 07:49 09/24/24 07:38 09/24/24 07:38 09/24/24 06:01 09/24/24 07:38
I&O
09/23/24 09/24/24 09/25/24
06:59 06:59 06:59
Intake Total 840 / 840
Output Total 1600 / 1600
Balance -760 / -760
Review of Systems
-
Unable to obtain full review of systems at this time due to: Other (Due to cognitive impairment)
Physical Exam
-
General: No Apparent Distress
HEENT: Moist Mucous Membranes
Respiratory: Non Labored Respirations; Negative Wheezes, Crackles or Accessory Resp Muscle Use
Cardiac: Regular Rhythm and S1/S2; Negative Tachycardic
GI: Soft
Musculoskeletal: Negative No Edema
Neuro: Awake, Alert and Oriented
Psych: Calm and Confused; Negative Agitated
Data Reviewed
-
Labs: Labs Reviewed by me
[2024-09-24] MEDS: MYRBETRIQ EXTENDED RELEASE 50 MG PO (08:42)
[2024-09-24] MEDS: ZOLOFT 150 MG PO (08:42)
[2024-09-24] MEDS: MUCINEX 600 MG PO ×2 (08:43→20:23)
[2024-09-24] MEDS: ELIQUIS 5 MG PO ×2 (08:43→20:23)
[2024-09-24] MEDS: DEPAKOTE (12 HR RELEASE) 500 MG PO ×2 (08:43→17:14)
[2024-09-24] MEDS: DILANTIN 200 MG PO ×2 (08:43→20:23)
[2024-09-24] MEDS: VIBRAMYCIN 100 MG PO ×2 (08:43→20:23)
[2024-09-24] MEDS: DICLOFENAC 1% TOPICAL GEL 1 GRAM TOPICAL (08:43)
[2024-09-24] MEDS: GLUCOTROL 10 MG PO ×2 (08:43→17:15)
--- NOTE | 2024-09-24 09:13 | W.PN.PUL3 ---
Today's Communication / Plan
-
Start DuoNebs
Continue budesonide
Discharge home on LABA/ICS with Breyna 160 mcg 2 puffs BID with prn albuterol MDI
Outpatient PFTs with repeat echo; discussion of LDCT chest for lung cancer screening as an outpatient
Maintain SpO2 >90% and if resting SaO2 remains <96% on room air then check ambulatory pulse oximetry prior to discharge
Recheck 2 view CXR tomorrow
Mucolytics
Pulmonary service will continue to follow along while she remains hospitalized
Assessment
-
69-year-old female smoker with a history of COPD, hypertension, anxiety, atrial fibrillation, diabetes who presented with some lethargy and shortness of breath found to be hypoxemic and pulmonary consulted for COPD exacerbation/hypoxemia 09/23/2024.
Impression:
Suspect advanced COPD/asthma with acute exacerbation
Increased eosinophil count (absolute eos: 700 on 09/23/2024)
Acute on top of chronic hypercapnia
VBG 09/23/2024--60/120/7.30
Leukocytosis
Hyperglycemia
Acute on chronic HFpEF
TAYLER/obesity hypoventilation suspected
Pulmonary hypertension (moderate severity via echo with PASP at least 57 mmHg)
Conditions present prior to admission:
COPD/asthma
Cigarette smoker.
Hypertension.
Atrial fibrillation.
GERD.
Anxiety.
Morbid obesity.
Obstructive sleep apnea suspected.
Plan
Respiratory decompensation likely due to underlying COPD and volume overload
Supplemental oxygen -wean as tolerated to maintain SpO2 >90%
Aspiration precautions
Start DuoNebs QID
Pulmicort nebulizers
Mucinex
Spirometry shows prebronchodilator moderate obstructive lung defect and this completely reverses with bronchodilation, consistent with asthma. She also has significant bronchodilator response with marked improvement in the small lung gibson,
further suggesting asthmatic phenotype
She also had 700 eosinophils on admission
Obstructive sleep apnea also suspected
BiPAP as needed-suspect component of chronic hypercapnia/obesity hypoventilation syndrome
D-dimer negative
She should be sent home on a LABA/ICS with Breyna 160mcg 2 puffs BID, rinsing mouth after use with prn albuterol MDI
Check cultures
Currently on doxycycline for bronchitis
Procalcitonin negative (<0.05 on 09/23/2024)
Trend leukocytosis, and monitor temperature curve and signs of infection
Gentle diuresis
Echo shows normal biventricular size and systolic function without regional WMA, with no significant valvular disease and at least moderate pulmonary hypertension with PASP suspected to be approximately 60 mmHg
This echo should be rechecked as an outpatient; she also should obtain full PFTs with diffusing capacity as an outpatient
Monitor renal function, electrolytes, intake/output, lower extremity edema and weight
Replace electrolytes as needed with K>4, Mg>2
Monitor blood sugar with goal >100 and <180
Insulin supplementation as needed
Smoking cessation counseling-counseling provided-'I do not want to'
Nicotine patch ordered
DVT prophylaxis-on Eliquis
Nutrition
Early mobilization
Reviewed with nursing
Outpatient pulmonary/sleep disorders follow-up recommended-advised the patient-she will 'think about it'-information will be left on chart
Pulmonary service will continue to follow along while she remains hospitalized.
Diagnostic data:
Chest x-ray 09/23/2024-mild CHF
Total time spent today was 38 minutes for this encounter. Time includes reviewing laboratory test/imaging results, reviewing pertinent medical records, obtaining and reviewing medical history, performing an appropriate exam, ordering medications,
tests and procedures. Time also includes documentation of this encounter, coordinating patient care and communicating with other healthcare professionals. Total time does not include separately billed tests performed on this date of service.
Subjective Data
-
Date of Service:
Date of Service: September 24, 2024
Chief Complaint: Pulmonary Follow Up
Subjective:
Patient seen and evaluated today at bedside. She feels well. Currently on 2 L/min nasal cannula and breathing comfortably. Bringing up yellow phlegm with her cough and says she is bringing up her phlegm without any issues. Currently denies chest
pain. Also denies MAURO, abdominal pain, nausea, fevers or chills.
Review of Systems
General: Other (Negative unless mentioned above)
Objective Data
Data Reviewed
Vital Signs / I&O / Oxygen:
Vital Signs
Temp Pulse Resp BP Pulse Ox
98.3 F 74 20 132/57 97
09/24/24 07:49 09/24/24 07:38 09/24/24 07:38 09/24/24 06:01 09/24/24 07:38
Intake and Output
09/23/24 09/24/24 09/25/24
06:59 06:59 06:59
Intake Total 840 / 840
Output Total 1600 / 1600
Balance -760 / -760
SaO2 97
Nasal Cannula flow liters per 2
minute
Physical Exam
General: Respiratory Distress (negative), Comfortable, Chills (negative) and Sweats (negative)
HEENT: Normocephalic and Anicteric
Cardiovascular: S1-S2 and Peripheral Edema (negative)
Respiratory: Wheeze (negative), Crackles (Bibasilar), Rhonchi (negative), Non-Labored Respirations and Stridor (negative)
GI: Soft, Distended (Abdominal obesity), Non Tender and Normal Bowel Sounds
Neurology: AO x 3 and Tremors (negative)
Skin: Warm, Dry, Cyanosis (negative) and Jaundice (negative)
Labs/Micro/Reports
Lab Data
09/23/24 06:05
09/23/24 06:05
Microbiology
09/23/24 13:48 Feces/Stool C. difficile GDH Antigen & Toxins - Final
Negative for toxigenic C.difficile
09/23/24 13:48 Feces/Stool - Final
Negative for Norovirus GI and GII.
09/23/24 00:48 Nasal Swab Influenza Types A & B (KAREN) - Final
Negative for Influenza A & B, NAAT
Negative results must be combined with clinical observations
and patient history.
Nucleic Acid Amplification test (NAAT)performed on the
[employer] platform.
[2024-09-24] MEDS: DECADRON 4 MG IV ×2 (10:04→20:24)
[2024-09-24] MEDS: NOVOLOG FLEXPEN-MODERATE RESISTANCE 5 UNITS SC (13:15)
--- NOTE | 2024-09-24 13:20 | PTCARENOTE ---
Rec'd pt this AM. Pt responds to calm, reassuring tone, otherwise is very anxious and easily overwhelmed. Needs encouragement to eat meals. vital signs stable. downgraded to tele.
[2024-09-24 13:25] LABS: Glucose - Point of Care 259 mg/dl (70-99)
--- NOTE | 2024-09-24 14:48 | PTCARENOTE ---
Update pt's Jere Garcia at bedside, . Gave report to SUDHA Cisneros at [facility].
[2024-09-24 17:07] LABS: Glucose - Point of Care 167 mg/dl (70-99)
[2024-09-24] MEDS: DICLOFENAC 1% TOPICAL GEL 100 GRAM TOPICAL ×2 (17:13→22:37)
[2024-09-24] MEDS: NOVOLOG FLEXPEN-MODERATE RESISTANCE 1 UNITS SC (17:15)
[2024-09-24 22:25] LABS: Glucose - Point of Care 156 mg/dl (70-99)
[2024-09-24] MEDS: LIPITOR 40 MG PO (22:30)
[2024-09-24] MEDS: LANTUS 0.2 UNITS SC (22:30)
[2024-09-24] MEDS: ZYRTEC 10 MG PO (22:36)
[2024-09-25] MEDS: DEPAKOTE (12 HR RELEASE) 500 MG PO ×4 (00:46→23:09)
[2024-09-25 03:34] VITALS: BP 142/82
--- NOTE | 2024-09-25 06:35 | PTCARENOTE ---
pt removed her oxygen and did not wish to put it back on. pulse ox was 96% on RA
[2024-09-25 07:00] VITALS: BP 160/85
[2024-09-25 07:22] LABS: Glucose - Point of Care 131 mg/dl (70-99)
[2024-09-25] MEDS: DUONEB INH ×2 (07:27→07:29)
[2024-09-25] MEDS: PULMICORT INH (07:29)
[2024-09-25 07:42] LABS: Hematocrit 45.1 % (37.0-47.0); Hemoglobin 15.6 g/dL (12.0-16.0); Mean Corp Hgb Conc. 34.6 g/dL (33.0-37.0); Mean Corpuscular Hgb 33.1 pg (27.0-31.0); Mean Corpuscular Volume 95.6 fL (81.0-99.0); Mean Platelet Volume 11.1 fL (7.4-10.4); Platelet Count 294 10^3/uL (130-400); Red Blood Cell Count 4.72 10^6/uL (4.20-5.40); Red Cell Dist. Width 13.2 % (11.5-14.5); White Blood Cell Count 10.9 10^3/uL (4.8-10.8)
[2024-09-25 07:48] LABS: NT-proBNP 256 pg/ml
[2024-09-25 08:02] LABS: ALT (SGPT) 56 U/L (0-35); AST (SGOT) 68 U/L (14-36); Albumin 4.4 g/dl (3.5-5.0); Alkaline Phosphatase 97 U/L (38-126); Blood Urea Nitrogen 16 mg/dl (7-17); Calcium 10.1 mg/dl (8.4-10.2); Carbon Dioxide 27 mmol/L (22-30); Chloride 99 mmol/L (98-107); Estimated Creatinine Clearance 100 ml/min; Glucose 115 mg/dl (70-99); Magnesium 1.9 mg/dl (1.6-2.3); Phosphorus 3.8 mg/dl (2.5-4.5); Potassium 3.8 mmol/L (3.5-5.1); Sodium 137 mmol/L (135-145); Total Bilirubin 0.3 mg/dl (0.2-1.3); Total Protein 7.6 g/dl (6.3-8.2); eGFR > 60.00
--- NOTE | 2024-09-25 08:48 | W.PN.PUL3 ---
Today's Communication / Plan
-
Continue DuoNebs
CXR today shows mild acute pulmonary edema --> start IV lasix while trending BNP and daily re-assessment of volume status
Continue budesonide
Discharge home on LABA/ICS with Breyna 160 mcg 2 puffs BID with prn albuterol MDI
Outpatient PFTs with repeat echo; discussion of LDCT chest for lung cancer screening as an outpatient
Maintain SpO2 >90% and if resting SaO2 remains <96% on room air then check ambulatory pulse oximetry prior to discharge
Mucolytics
Pulmonary service will continue to follow along while she remains hospitalized
Assessment
-
69-year-old female smoker with a history of COPD, hypertension, anxiety, atrial fibrillation, diabetes who presented with some lethargy and shortness of breath found to be hypoxemic and pulmonary consulted for COPD exacerbation/hypoxemia 09/23/2024.
Impression:
Suspect advanced COPD/asthma with acute exacerbation
Increased eosinophil count (absolute eos: 700 on 09/23/2024)
Acute on top of chronic hypercapnia
VBG 09/23/2024--60/120/7.30
Leukocytosis
Hyperglycemia - resolved
Acute on chronic HFpEF
TAYLER/obesity hypoventilation suspected
Pulmonary hypertension (moderate severity via echo with PASP at least 57 mmHg)
Conditions present prior to admission:
COPD/asthma
Cigarette smoker.
Hypertension.
Atrial fibrillation.
GERD.
Anxiety.
Morbid obesity.
Obstructive sleep apnea suspected.
Plan
Respiratory decompensation likely due to underlying COPD/asthma and volume overload
Maintain SpO2 88-95% with supplemental O2 if needed
Aspiration precautions
Continue DuoNebs QID
Pulmicort nebulizers BID
Mucinex
Spirometry on 09/23/2024 showed pre-bronchodilator moderate obstructive lung defect that completely reversed with bronchodilation, consistent with asthma. She also has a significant bronchodilator response with marked improvement in the small lung
gibson, further suggesting asthmatic phenotype
She also had 700 eosinophils on admission
Obstructive sleep apnea also suspected
BiPAP as needed-suspect component of chronic hypercapnia/obesity hypoventilation syndrome
D-dimer negative
She should be sent home on a LABA/ICS with Breyna 160mcg 2 puffs BID, rinsing mouth after use with prn albuterol MDI
Check cultures
Currently on doxycycline for bronchitis
Procalcitonin negative (<0.05 on 09/23/2024)
Trend leukocytosis, and monitor temperature curve and signs of infection
CXR today shows mild pulmonary edema --> start lasix 40mg IV daily and re-assess volume status daily; she may need to go home on a diuretic
Echo shows normal biventricular size and systolic function without regional WMA, with no significant valvular disease and at least moderate pulmonary hypertension with PASP suspected to be approximately 60 mmHg
This echo should be rechecked as an outpatient; she also should obtain full PFTs with diffusing capacity as an outpatient
Monitor renal function, electrolytes, intake/output, lower extremity edema and weight
Replace electrolytes as needed with K>4, Mg>2
Monitor blood sugar with goal >100 and <180
Insulin supplementation as needed
Smoking cessation counseling-counseling provided-'I do not want to'
Nicotine patch ordered --> pt refused. I will DC this
DVT prophylaxis-on Eliquis
Nutrition
Early mobilization
Reviewed with nursing
Outpatient pulmonary/sleep disorders follow-up recommended-advised the patient-she will 'think about it'-information will be left on chart
Pulmonary service will continue to follow along while she remains hospitalized.
Diagnostic data:
Chest x-ray 09/23/2024-mild CHF
Total time spent today was 36 minutes for this encounter. Time includes reviewing laboratory test/imaging results, reviewing pertinent medical records, obtaining and reviewing medical history, performing an appropriate exam, ordering medications,
tests and procedures. Time also includes documentation of this encounter, coordinating patient care and communicating with other healthcare professionals. Total time does not include separately billed tests performed on this date of service.
Subjective Data
-
Date of Service:
Date of Service: September 25, 2024
Chief Complaint: Pulmonary Follow Up
Subjective:
Patient was seen and evaluated today at bedside. She is now on room air saturating 95%. She has minimal complaints, denies shortness of breath or cough, also denies chest pain, MAURO, abdominal pain, nausea, fevers or chills.
Review of Systems
General: Other (Negative unless mentioned above)
Objective Data
Data Reviewed
Vital Signs / I&O / Oxygen:
Vital Signs
Temp Pulse Resp BP Pulse Ox
98.3 F 72 20 160/85 97
09/25/24 07:00 09/25/24 07:00 09/25/24 07:00 09/25/24 07:00 09/25/24 07:00
Intake and Output
09/24/24 09/25/24 09/26/24
06:59 06:59 06:59
Intake Total 840 / 840 480 / 480
Output Total 1600 / 1600 800 / 800
Balance -760 / -760 -320 / -320
SaO2 97
Nasal Cannula flow liters per 2
minute
Physical Exam
General: Respiratory Distress (negative), Comfortable, Chills (negative) and Sweats (negative)
HEENT: Normocephalic and Anicteric
Cardiovascular: S1-S2 and Peripheral Edema (negative)
Respiratory: Wheeze (negative), Crackles (negative), Rhonchi (negative), Non-Labored Respirations, Stridor (negative) and Other (Diminished breath sounds bilaterally)
GI: Soft, Distended (Abdominal obesity), Non Tender and Normal Bowel Sounds
Neurology: Awake, Alert and Tremors (negative)
Skin: Warm, Dry, Cyanosis (negative) and Jaundice (negative)
Labs/Micro/Reports
Lab Data
09/25/24 07:07
09/25/24 07:07
Microbiology
09/23/24 13:48 Feces/Stool C. difficile GDH Antigen & Toxins - Final
Negative for toxigenic C.difficile
09/23/24 13:48 Feces/Stool - Final
Negative for Norovirus GI and GII.
09/23/24 00:48 Nasal Swab Influenza Types A & B (KAREN) - Final
Negative for Influenza A & B, NAAT
Negative results must be combined with clinical observations
and patient history.
Nucleic Acid Amplification test (NAAT)performed on the
[employer] platform.
[2024-09-25] MEDS: NOVOLOG FLEXPEN-MODERATE RESISTANCE SC (09:17)
[2024-09-25] MEDS: DECADRON 4 MG IV ×2 (09:18→21:29)
[2024-09-25] MEDS: DICLOFENAC 1% TOPICAL GEL 100 GRAM TOPICAL ×2 (09:18→16:59)
[2024-09-25] MEDS: GLUCOTROL PO (10:34)
[2024-09-25 11:00] VITALS: BP 143/77
--- NOTE | 2024-09-25 11:09 | CM ---
Addendum entered by Juli Villalobos 09/25/24 14:51:
Patients spouse updated on patient discharge being held.
Addendum entered by Juli Villalobos 09/25/24 13:12:
Patient scheduled for 6:00 p.m. transport.
Addendum entered by Juli Villalobos 09/25/24 12:51:
CM reviewed with Hospitalist, clear for discharge. Update to [facility], spoke with Ayla in admissions, able to accept. CM placed call to patients , Bill, aware of discharge. Reviewed IMM, placed in chart.
Original Note:
CM reviewed chart, patient seen bedside. Patient LTC resident at [facility]. PT evaluation recommending patient return to LTC. CM will continue to follow for all discharge planning needs.
Plan; Return to [facility] when stable, will require ambulance transport.
[facility]
Report:[phone]
[2024-09-25] MEDS: DILANTIN 200 MG PO ×2 (11:14→20:07)
[2024-09-25] MEDS: MYRBETRIQ EXTENDED RELEASE 50 MG PO (11:14)
[2024-09-25] MEDS: ZOLOFT 150 MG PO (11:15)
[2024-09-25] MEDS: ELIQUIS 5 MG PO ×2 (11:15→20:08)
[2024-09-25] MEDS: VIBRAMYCIN 100 MG PO ×2 (11:15→20:07)
[2024-09-25] MEDS: MUCINEX 600 MG PO ×2 (11:17→20:07)
[2024-09-25] MEDS: DUONEB 3 ML INH ×3 (11:17→19:31)
[2024-09-25 12:03] LABS: Glucose - Point of Care 173 mg/dl (70-99)
[2024-09-25] MEDS: NOVOLOG FLEXPEN-MODERATE RESISTANCE 1 UNITS SC ×2 (12:24→17:04)
[2024-09-25] MEDS: MAG-TAB SR 84 MG PO (14:25)
[2024-09-25] MEDS: LASIX 40 MG IV (14:25)
--- NOTE | 2024-09-25 14:27 | W.PN.HOSP.TC ---
Today's Communication/Plan
-
CW diuretics .Follow wt.
cw Nebs and steroids.
CW doxy.
Assessment / Plan
Assessment / Plan
1. COPD with Acute Exacerbation
-VBG: pH 7.3, pCO2 60, pO2 120, HCO3 29.5.
-Patient weaned down to room air.
-Speech eval noted-cleared for regular and thin liquids
-DuoNebs, Pulmicort, Mucinex
-appreciate pulm input
-Improved wheeze. Decrease the steroids.Consider switch to po prednsione tomorrow
-Continue with empirical doxycycline
Chest x-ray suggest mild pulmonary edema but cannot rule out underlying chronic interstitial lung disease. Echo with normal EF and no significant valvular heart disease on this admission. BNP was within the normal limits. Clinically no lower
extremity edema or JVD. Doubt CHF.
Patient last 9 pounds on off of oxygen. Chest x-ray still shows mild persistent pulmonary edema. Repeat BNP still doesnt rule in CHF. Unclear if its edema in the interstitium or inflammation. Continue with diuretics per pulmonary.
Leukocytosis
-WBC 17 on admission, 12.4 this morning. normalized
-Procalcitonin negative, monitor leukocytosis/temperature/signs of infection
-Continue with empirical doxycycline for 5 day course
Possible TAYLER
-Appreciate pulm, consider as needed BiPAP.
Type 2 diabetes mellitus
-Insulin glargine 20 units nightly
-Insulin sliding scale
-Hold metformin
-Continue glipizide
Seizure disorder
-Continue home meds
A-fib
-Continue Eliquis
-No current rate control agents
Full code/home Eliquis
Discussed with RN
Anticipated Discharge: Within 24 hours
Subjective/Interval History
-
Date of Service: September 25, 2024
Pleasantly confused.
Denies shortness of breath. Off of oxygen.
No chest pain.
Objective Data
-
Labs:
Laboratory Results
09/25/24
07:07
WBC 10.9 H
Hgb 15.6
Hct 45.1
Plt Count 294
Sodium 137
Potassium 3.8
Chloride 99
Carbon Dioxide 27
BUN 16
Creatinine 0.5 L
Glucose 115 H
Calcium 10.1
Total Bilirubin 0.3
AST 68 H
ALT 56 H
Alkaline Phosphatase 97
Vital Signs:
Vital Signs
Temp Pulse Resp BP Pulse Ox
97.7 F 75 20 143/77 95
09/25/24 11:00 09/25/24 11:00 09/25/24 11:00 09/25/24 11:00 09/25/24 11:00
I&O
09/24/24 09/25/24 09/26/24
06:59 06:59 06:59
Intake Total 840 / 840 480 / 480
Output Total 1600 / 1600 800 / 800
Balance -760 / -760 -320 / -320
Review of Systems
-
Unable to obtain full review of systems at this time due to: Other (Cognitive impairment)
Physical Exam
-
General: No Apparent Distress
HEENT: Moist Mucous Membranes
Respiratory: Clear to Auscultation
Cardiac: Regular Rhythm and S1/S2
GI: Soft
Neuro: Awake, Alert and Oriented (Self only)
Psych: Calm and Confused; Negative Agitated
Data Reviewed
-
Diagnostic Radiology: Report Reviewed by me (cxr)
Labs: Labs Reviewed by me
[2024-09-25 15:00] VITALS: BP 160/74
[2024-09-25] MEDS: GLUCOTROL 10 MG PO (16:59)
[2024-09-25 17:04] LABS: Glucose - Point of Care 187 mg/dl (70-99)
[2024-09-25] MEDS: PULMICORT 0.5 MG INH (19:31)
[2024-09-25 19:46] VITALS: BP 160/80
[2024-09-25 21:03] LABS: Glucose - Point of Care 191 mg/dl (70-99)
[2024-09-25] MEDS: LIPITOR 40 MG PO (21:29)
[2024-09-25] MEDS: ZYRTEC 10 MG PO (21:29)
[2024-09-25] MEDS: DICLOFENAC 1% TOPICAL GEL 2 GRAM TOPICAL (21:30)
[2024-09-25] MEDS: LANTUS 0.2 UNITS SC (21:35)
[2024-09-25 23:52] VITALS: BP 160/83
[2024-09-26 03:11] VITALS: BP 144/82
[2024-09-26 05:54] VITALS: BMI 33.7
[2024-09-26 07:00] VITALS: BP 153/78
[2024-09-26] MEDS: DUONEB 3 ML INH ×3 (07:41→15:28)
[2024-09-26] MEDS: PULMICORT 0.5 MG INH (07:41)
[2024-09-26 07:42] LABS: Glucose - Point of Care 130 mg/dl (70-99)
[2024-09-26 07:59] LABS: Hematocrit 48.9 % (37.0-47.0); Hemoglobin 16.7 g/dL (12.0-16.0); Mean Corp Hgb Conc. 34.2 g/dL (33.0-37.0); Mean Corpuscular Hgb 32.4 pg (27.0-31.0); Mean Platelet Volume 11.3 fL (7.4-10.4); Platelet Count 319 10^3/uL (130-400); Red Blood Cell Count 5.15 10^6/uL (4.20-5.40); Red Cell Dist. Width 13.3 % (11.5-14.5); White Blood Cell Count 12.4 10^3/uL (4.8-10.8)
[2024-09-26] MEDS: NOVOLOG FLEXPEN-MODERATE RESISTANCE SC (08:37)
[2024-09-26] MEDS: DICLOFENAC 1% TOPICAL GEL 100 GRAM TOPICAL (08:40)
[2024-09-26] MEDS: DECADRON 4 MG IV (08:42)
[2024-09-26] MEDS: LASIX 40 MG IV (08:42)
[2024-09-26] MEDS: VIBRAMYCIN 100 MG PO (08:43)
[2024-09-26] MEDS: GLUCOTROL 10 MG PO (08:43)
[2024-09-26] MEDS: MUCINEX 600 MG PO (08:43)
[2024-09-26] MEDS: DEPAKOTE (12 HR RELEASE) 500 MG PO ×2 (08:43→16:07)
[2024-09-26] MEDS: MYRBETRIQ EXTENDED RELEASE 50 MG PO (08:43)
[2024-09-26] MEDS: DILANTIN 200 MG PO (08:44)
[2024-09-26] MEDS: ELIQUIS 5 MG PO (08:45)
[2024-09-26] MEDS: ZOLOFT 150 MG PO (08:45)
[2024-09-26 11:00] VITALS: BP 156/79
[2024-09-26 11:43] VITALS: PULSE 85
[2024-09-26 11:52] LABS: Glucose - Point of Care 216 mg/dl (70-99)
[2024-09-26 11:54] VITALS: PULSE 86
--- NOTE | 2024-09-26 12:04 | CM ---
CM reviewed chart, reviewed with Hospitalist, clear for discharge today. CM provided update to Ayla in admissions, patient scheduled for 4:15 p.m. transport. Call to patients , Bill [phone], with discharge plan and transport time. CM
will continue to follow for all discharge planning needs.
Plan; Return to [facility], 4:15 p.m. ambulance transport.
[facility]
Report:[phone]
--- NOTE | 2024-09-26 12:59 | W.PN.HOSP.TC ---
Addendum entered and electronically signed by Rohan Chowdhury MD 09/28/24 14:37:
Acute CHF was rule out
Original Note:
Today's Communication/Plan
-
DC planning
Assessment / Plan
Assessment / Plan
COPD with Acute Exacerbation
-VBG: pH 7.3, pCO2 60, pO2 120, HCO3 29.5.
-Patient weaned down to room air.
-Speech eval noted-cleared for regular and thin liquids
-DuoNebs, Pulmicort, Mucinex
-appreciate pulm input
-Resolved wheeze. switch to po prednsione today
-Continue with empirical doxycycline for total of 5 days
Chest x-ray suggest mild pulmonary edema but cannot rule out underlying chronic interstitial lung disease. Echo with normal EF and no significant valvular heart disease on this admission. BNP was within the normal limits. Clinically no lower
extremity edema or JVD. Doubt CHF.
Patient last 9 pounds on off of oxygen. Chest x-ray still shows mild persistent pulmonary edema. Repeat BNP still doesnt rule in CHF. Unclear if its edema in the interstitium or inflammation. Continue with diuretics per pulmonary.
If wt is acurrate then she lost significant Wt.
Leukocytosis
-WBC 17 on admission, 12.4 this morning.
-Procalcitonin negative, monitor leukocytosis/temperature/signs of infection
-Continue with empirical doxycycline for 5 day course
Possible TAYLER
-Appreciate pulm, consider as needed BiPAP.
Type 2 diabetes mellitus
-Insulin glargine 20 units nightly
-Insulin sliding scale
-Resume metformin on dc
-Continue glipizide
Seizure disorder
-Continue home meds
A-fib
-Continue Eliquis
-No current rate control agents
Full code/home Eliquis
Discussed with RN
DC to facility if ok from pulm standpoint
Anticipated Discharge: Today
Subjective/Interval History
-
Date of Service: September 26, 2024
Pleasantly confused
Voices no specific complaints.
Objective Data
-
Labs:
Laboratory Results
09/26/24
07:23
WBC 12.4 H
Hgb 16.7 H
Hct 48.9 H
Plt Count 319
Sodium Cancelled
Potassium Cancelled
Chloride Cancelled
Carbon Dioxide Cancelled
BUN Cancelled
Creatinine Cancelled
Glucose Cancelled
Calcium Cancelled
Total Bilirubin Cancelled
AST Cancelled
ALT Cancelled
Alkaline Phosphatase Cancelled
Vital Signs:
Vital Signs
Temp Pulse Resp BP Pulse Ox
97.7 F 76 16 156/79 94
09/26/24 11:00 09/26/24 11:17 09/26/24 11:17 09/26/24 11:00 09/26/24 11:00
I&O
09/25/24 09/26/24 09/27/24
06:59 06:59 06:59
Intake Total 480 / 480 1200 / 1200
Output Total 800 / 800 2100 / 2100
Balance -320 / -320 -900 / -900
Review of Systems
-
Unable to obtain full review of systems at this time due to: Other (Cognitively impaired)
Constitutional: Denies Fever
EENT: Denies Sore Throat
Respiratory: Denies Cough or Trouble Breathing
Cardiac: Denies Chest Pain
Abdomen/GI: Denies Abdominal Pain, Nausea or Vomiting
Neuro: Denies Dizzy or Headache
Physical Exam
-
General: Comfortable
Respiratory: Clear to Auscultation and Non Labored Respirations; Negative Accessory Resp Muscle Use
Cardiac: Regular Rhythm and S1/S2; Negative Tachycardic
GI: Soft, Nontender, Nondistended and Normal Bowel Sounds
Neuro: Awake, Alert and Oriented (self)
Psych: Calm and Confused; Negative Agitated
Data Reviewed
-
Labs: Labs Reviewed by me
[2024-09-26] MEDS: NOVOLOG FLEXPEN-MODERATE RESISTANCE 3 UNITS SC (13:07)
--- NOTE | 2024-09-26 13:08 | W.PN.PUL3 ---
Today's Communication / Plan
-
She should be sent home on a LABA/ICS with Breyna but patient declined.
Okay to discharge and albuterol HFA as needed
Transition to prednisone
Discontinue nebulizer
Smoking cessation
Complete 5 days of doxycycline
Will need outpatient sleep study if patient allows
Outpatient pulmonary/sleep follow-up recommended, patient will think about it.
High risk for readmission due to unwillingness to stop smoking.
Assessment
-
69-year-old female smoker with a history of COPD, hypertension, anxiety, atrial fibrillation, diabetes who presented with some lethargy and shortness of breath found to be hypoxemic and pulmonary consulted for COPD exacerbation/hypoxemia 09/23/2024.
Impression:
Suspect advanced COPD/asthma with acute exacerbation
Increased eosinophil count (absolute eos: 700 on 09/23/2024)
Acute on top of chronic hypercapnia
VBG 09/23/2024--60/120/7.30
Leukocytosis
Hyperglycemia - resolved
Acute on chronic HFpEF
TAYLER/obesity hypoventilation suspected
Pulmonary hypertension (moderate severity via echo with PASP at least 57 mmHg)
Conditions present prior to admission:
COPD/asthma
Cigarette smoker.
Hypertension.
Atrial fibrillation.
GERD.
Anxiety.
Morbid obesity.
Obstructive sleep apnea suspected.
Plan
Respiratory decompensation likely due to underlying COPD/asthma and volume overload
Clinically improved. Not bronchospastic on exam 09/26/2024.
Aspiration precautions
Continue DuoNebs QID-while in the hospital
Pulmicort nebulizers BID-while in the hospital.
Mucinex
Spirometry on 09/23/2024 showed pre-bronchodilator moderate obstructive lung defect that completely reversed with bronchodilation, consistent with asthma. She also has a significant bronchodilator response with marked improvement in the small lung
gibson, further suggesting asthmatic phenotype
She also had 700 eosinophils on admission
Discontinue IV Solu-Medrol. Transition to prednisone 40 mg and decrease by 10 mg every 48 hours to off.
Obstructive sleep apnea also suspected
Discussed with patient risk of cardiovascular complications including stroke if this is not addressed. was at the bedside.
BiPAP as needed-suspect component of chronic hypercapnia/obesity hypoventilation syndrome
Highly recommend outpatient pulmonary/sleep follow-up. Information left in the chart
-
She should be sent home on a LABA/ICS with Breyna 160mcg 2 puffs BID, rinsing mouth after use with prn albuterol MDI
-
Cultures negative so far. Afebrile
Leukocytosis possibly from steroid
Currently on doxycycline for bronchitis-complete total of 5 days.
Procalcitonin negative (<0.05 on 09/23/2024)
CXR shows mild pulmonary edema --> status post diuresis.
Echo shows normal biventricular size and systolic function without regional WMA, with no significant valvular disease and at least moderate pulmonary hypertension with PASP suspected to be approximately 60 mmHg
This echo should be rechecked as an outpatient; she also should obtain full PFTs with diffusing capacity as an outpatient
Smoking cessation counseling-counseling provided-'I do not want to'
Nicotine patch ordered --> pt refused. I will DC this
DVT prophylaxis-on Eliquis
Outpatient pulmonary/sleep disorders follow-up recommended-advised the patient-she will 'think about it'-information will be left on chart
From my perspective okay to discharge.
Patient understands recurrence of symptoms, worsening symptoms with ongoing smoking.
Sign off
Diagnostic data:
Chest x-ray 09/23/2024-mild CHF
Subjective Data
-
Date of Service:
Date of Service: September 26, 2024
Chief Complaint: Pulmonary Follow Up
Subjective:
Patient feels better.
Denies significant phlegm production
No new events overnight
Review of Systems
Cardiopulmonary: Dyspnea (Improved), Cough ( improved) and Wheezing (Improved)
Objective Data
Data Reviewed
Vital Signs / I&O / Oxygen:
Vital Signs
Temp Pulse Resp BP Pulse Ox
97.7 F 76 16 156/79 94
09/26/24 11:00 09/26/24 11:17 09/26/24 11:17 09/26/24 11:00 09/26/24 11:00
Intake and Output
09/25/24 09/26/24 09/27/24
06:59 06:59 06:59
Intake Total 480 / 480 1200 / 1200
Output Total 800 / 800 2100 / 2100
Balance -320 / -320 -900 / -900
SaO2 94
Nasal Cannula flow liters per 2
minute
Physical Exam
General: Respiratory Distress (negative), Comfortable, Chills (negative) and Sweats (negative)
HEENT: Normocephalic and Anicteric
Cardiovascular: S1-S2 and Peripheral Edema (negative)
Respiratory: Wheeze (negative), Crackles (negative), Rhonchi (negative), Non-Labored Respirations, Stridor (negative) and Other (Diminished breath sounds bilaterally)
GI: Soft, Distended (Abdominal obesity), Non Tender and Normal Bowel Sounds
Neurology: Awake, Alert and Tremors (negative)
Skin: Warm, Dry, Cyanosis (negative) and Jaundice (negative)
Labs/Micro/Reports
Lab Data
09/26/24 07:23
09/26/24 07:23
Microbiology
09/23/24 13:48 Feces/Stool C. difficile GDH Antigen & Toxins - Final
Negative for toxigenic C.difficile
09/23/24 13:48 Feces/Stool - Final
Negative for Norovirus GI and GII.
[2024-09-26 15:00] VITALS: BP 156/99
--- NOTE | 2024-09-26 15:15 | W.DCSUMMARY ---
Discharge Summary
Discharge Data
Date of Admission: 09/23/24
Date of Discharge: 09/26/24
-
Pending Results: No
Hospital Course
Primary diagnosis:
Acute chronic obstructive pulmonary disease exacerbation
Secondary diagnosis:
Type 2 diabetes mellitus
Seizure disorder
Paroxysmal atrial fibrillation
Current smoker
Hospital course:
69-year-old female with history of COPD and ongoing tobacco use presented with shortness of breath and lethargy. She was noted to be hypoxemic along with that. Difficult historian because of her cognitive impairment. She had not chest pains or
palpitations.
She had active bronchospasm bilaterally. VBG showed pH of 7.3 with a pCO2 of 60 and pO2 120 on oxygen. Chest x-ray showed mild pulm edema but could not rule out underlying component of chronic interstitial lung disease. Her BNP was normal. EKG
was in sinus rhythm. Troponins were negative.
Clinical suspicion was for COPD exacerbation. She was initiated on nebulizers, steroids and empirical doxycycline. She clinically improved with resolution of hypoxia and the wheeze.
There was a concern of there was an interstitial edema vs chronic interstitial lung disease. She was initially given Lasix. Repeat BMP did not suggest CHF. Her echocardiogram on this admission showed normal EF and no significant valvular heart
disease. Diuretics were further kept on hold. She was advised strongly to quit smoking.
1 moderate pulmonary hypertension was noted on echo. Pulmonary advised to repeat echo as OP after treatment of COPD exacerbation.
She was clinically stable from pulmonary standpoint she was discharged back to her facility. I would favor holding scheduled benzos on this lady. Use as needed.
Suspected sleep apnea and pulmonary highly recommended outpatient pulmonary sleep follow-up and information was left in the chart.
She was advised to follow with pulmonary.
Consultants on board:
Pulmonary - Clint Becker
Discharge Plan
-
Patient Disposition: Residential/SNF
Discharge Diagnosis/Procedures: COPD exacerbation
Diet: Diabetic, Carb Controlled
Activity: As tolerated
Driving Restrictions: No driving
Others Tests: CXR in one week - to follow on interstitial prominence.
Referrals:
Clint Nielson MD [Active] -
(Dr. Nielson or [facility]
Needs PFTs, 6-minute walk test, yearly low-dose lung cancer screening CT, and PSG)
UNKNOWN - PT NOT,INTERVIEWE [Family Provider] -
Prescriptions:
New
doxycycline hyclate 100 mg Capsule
100 mg PO Q12 Qty: 4 0RF
Rx Instructions:
2more days
prednisone 10 mg tablet
10 mg PO DIRECTED Qty: 1 0RF
Rx Instructions:
taper by 10mg every 2 days starting at 30mg
Continued
atorvastatin 40 mg tablet
40 mg PO HS
gabapentin 600 mg Tablet
600 mg PO Q8H
trazodone 50 mg tablet
50 mg PO HS
melatonin 3 mg Tablet
9 mg PO HS
phenytoin 50 mg tablet,chewable
200 mg PO Q12H
divalproex 500 mg tablet,delayed release (DR/EC)
500 mg PO Q8H
tramadol 50 mg tablet
50 mg PO Q8H PRN (Reason: moderate pain)
magnesium hydroxide [Milk of Magnesia] 400 mg/5 mL Suspension
30 ml PO DAILY PRN (Reason: if no bm x 3 days)
ascorbic acid (vitamin C) 500 mg Tablet
500 mg PO DAILY
bisacodyl [Dulcolax (bisacodyl)] 10 mg Suppository
10 mg NM DAILY PRN (Reason: if no bm in 24hrs after MOM)
metformin 1,000 mg Tablet
1,000 mg PO BID
diphenhydramine HCl 25 mg Tablet
25 mg PO Q12H PRN (Reason: allergies)
lidocaine 5 % Adhesive Patch,Medicated
1 patch TOPICAL DAILY
Rx Instructions:
apply to right shoulder
Fleet Enema 19-7 gram/118 mL Enema
118 ml NM DAILY PRN (Reason: if no bm in 24hrs after bisacodyl)
dextromethorphan-guaifenesin [Robitussin Honey Max DM] 5-100 mg/5 mL Liquid
20 ml PO Q4H PRN (Reason: cough/congestion)
albuterol sulfate 90 mcg/actuation HFA aerosol inhaler
2 puff INHALATION R Q4 PRN (Reason: wheezing)
sertraline 50 mg tablet
150 mg PO DAILY
glipizide 5 mg Tablet
10 mg PO BID
propylene glycol-glycerin 1-0.3 % Drops
2 drp BOTH EYES Q4H PRN (Reason: eye irratation)
omeprazole 20 mg Tablet,Delayed Release (Dr/Ec)
20 mg PO DAILY
cholecalciferol (vitamin D3) [Vitamin D3] 50 mcg (2,000 unit) Tablet
50 mcg PO DAILY
mirabegron [Myrbetriq] 50 mg tablet extended release 24 hr
50 mg PO DAILY
apixaban 5 mg Tablet
5 mg PO BID
Gvoke HypoPen 2-Pack 1 mg/0.2 mL Auto-Injector
1 mg SC ONCE PRN (Reason: hypoglycemia, blood sugar <50)
insulin glargine-yfgn 100 unit/mL solution
26 unit SC .AM AND HS
mineral oil-hydrophil petrolat Ointment
1 applic TOPICAL BID
Patient Comments:
bilat lower extremities
Saline Mist 0.65 % Aerosol,[place]
2 spray INTRANASAL Q4H
niacin [Niacor] 500 mg Tablet
500 mg PO HS
fluticasone propionate 50 mcg/actuation [place],Suspension
2 spray INTRANASAL DAILY
Patient Comments:
BOTH NOSTRILS
loratadine [Claritin] 10 mg Tablet
10 mg PO DAILY
diclofenac sodium 1 % Gel
1 ea TOPICAL BID
Patient Comments:
to R knee
Zyrtec 10 mg Capsule
10 mg PO HS
Changed
clonazepam 1 mg tablet
1 mg PO BID PRN (Reason: anxiety) Qty: 0 0RF
guaifenesin 600 mg Tablet Extended Release 12hr
600 mg PO BID PRN (Reason: Cough) Qty: 0 0RF
Discontinued
ammonium lactate 12 % Lotion
1 applic TOPICAL Q12H
Rx Instructions:
apply to legs
ondansetron HCl 4 mg tablet
4 mg PO Q8H PRN (Reason: nausea/vomiting)
clonazepam 0.5 mg Tablet
0.5 mg PO DAILY@1300
loperamide 2 mg Tablet
2 mg PO Q8H PRN (Reason: diarrhea)
benzonatate 100 mg capsule
100 mg PO BID
lactase [Lactaid] 3,000 unit Tablet
9,000 unit PO TID
diclofenac sodium 1 % Gel
1 ea TOPICAL Q8H
Rx Instructions:
apply to right shoulder
dextromethorphan-quinidine 20-10 mg Capsule
1 cap PO Q12H
Chloraseptic Total 5-6-10 mg Lozenge
1 naz PO Q2H PRN (Reason: cough)
Chloraseptic Lozenge
1 naz Q2H PRN (Reason: cough)
lidocaine 5 % Adhesive Patch,Medicated
1 patch TOPICAL DAILY
Patient Comments:
TO R KNEE
cyclobenzaprine 5 mg Tablet
5 mg PO DAILY PRN (Reason: muscle pain)
Discharge Orders:
Discharge Patient (As Directed); Ordered 09/26/24
Ordered By: Rohan Chowdhury
Discharge Date and Time
Print Language: UKRAINIAN
[2024-09-26] MEDS: DICLOFENAC 1% TOPICAL GEL 1 GRAM TOPICAL (16:05)
--- NOTE | 2024-09-27 11:04 | PN.CDI ---
CDI
- -
CDI:
Physician Documentation Request
Admit Date: 09/23/24 03:25
Dear Doctor [place]
Pulmonology progress notes include acute on chronic HFpEF. 'Respiratory decompensation likely due to underlying COPD and volume overload
Discharge summary ' She was initially given Lasix. Repeat BMP did not suggest CHF. Her echocardiogram on this admission showed normal EF and no significant valvular heart disease. Diuretics were further kept on hold.'
09/23 and 09/25 cxr impression 'mild pulmonary edema. '
Please clarify:
____ - acute on chronic HFpEF was present
____ - acute HFpEF was ruled out - chronic only
____ - Other
Use of terms such as suspected, likely, concern for, or probable (associated with a specific diagnosis that is being evaluated, monitored, or treated as if it exists) are acceptable and can be coded in the inpatient setting, when documented at the
time of discharge.
Thank you,
Ayla Urena RN, BSN
CDI Specialist
tiger text
Please use your independent medical judgment in providing your response.
== END 2024-09-26 16:25 | DRG 191 ==
LOC: 4 WEST ACU 03:25
PROVIDERS: Internal Medicine Critical Care Medicine; ADMITTING PHYSICIAN Internal Medicine; ATTENDING PHYSICIAN Internal Medicine; EMERGENCY PHYSICIAN Student in an Organized Health Care Education/Training Program; OTHER PHYSICIAN Internal Medicine Critical Care Medicine
DX: J44.1 Chronic obstructive pulmonary disease with (acute) exacerbation (principal); F03.93 Unspecified dementia, unspecified severity, with mood disturbance; F03.94 Unspecified dementia, unspecified severity, with anxiety; I50.32 Chronic diastolic (congestive) heart failure; E11.65 Type 2 diabetes mellitus with hyperglycemia; E11.649 Type 2 diabetes mellitus with hypoglycemia without coma; G40.909 Epilepsy, unspecified, not intractable, without status epilepticus; I48.0 Paroxysmal atrial fibrillation; I27.20 Pulmonary hypertension, unspecified; Z79.84 Long term (current) use of oral hypoglycemic drugs; Z79.899 Other long term (current) drug therapy; Z79.01 Long term (current) use of anticoagulants; R09.02 Hypoxemia; Z11.52 Encounter for screening for COVID-19; K21.9 Gastro-esophageal reflux disease without esophagitis; F17.210 Nicotine dependence, cigarettes, uncomplicated; E66.01 Morbid (severe) obesity due to excess calories; Z68.33 Body mass index [BMI] 33.0-33.9, adult; D72.829 Elevated white blood cell count, unspecified; F32.A Depression, unspecified; F41.9 Anxiety disorder, unspecified; G43.909 Migraine, unspecified, not intractable, without status migrainosus; R32 Unspecified urinary incontinence; Z79.4 Long term (current) use of insulin; Z90.710 Acquired absence of both cervix and uterus; I11.0 Hypertensive heart disease with heart failure
CPT/HCPCS: 71046; 80048; 80053; 80164; 80185; 82140; 82805; 82962; 83735; 83880; 84100; 84145; 84484; 85025; 85027; 85379; 87324; 87449; 87502; 87798; 87811; 92610; 93005; 93306; 94640; 97163; 97167; 97530; 97535; 99285

== ENCOUNTER 2024-10-09 02:59 | Inpatient (IN) | payer MEDICARE, OTHER, SELFPAY ==
--- NOTE | 2024-10-08 23:04 | ED.GENMED ---
History of Present Illness
General
Chief Complaint: Weakness
Source: patient
Exam Limitations: none
Time Seen by Provider: 10/08/24 22:47
History of Present Illness
History of Present Illness:
69 year old female presents from [facility] with chief complaint of generalized weakness. She was here about 10 days ago for COPD flare. Her roommate [facility] recently tested positive for COVID. There was reported fever for 2 to 3 days.
They noted increased lethargy. She does have a history of cognitive dysfunction. She is a limited historian but denies any pain
Past History
Past History
ED Past Medical History: Arrthythmia (afib), Asthma, CVA, HTN, NIDDM, Psychiatric (anxiety, depression) and Other (Migraine, UTI, )
ED Past Surgical History: Appendectomy, Cholecystectomy, ( X4), Gynecological (Hysterectomy), Tonsilectomy and Other (Trach)
Social History
Tobacco: Smoker
Alcohol: None
Drug: None
Personal:
Living: senior care
Phy Exam
Physical Exam
Physical Exam:
General: Slightly ill-appearing female no acute respiratory distress
HEENT: Normocephalic mucosa dry neck is supple
Heart: Regular rate and rhythm
Lungs: Clear no obvious wheeze
Abdomen is soft nontender nondistended no guarding or rebound
Extremities: No cyanosis no edema
Skin: Warm no rash
Neurologic exam: Alert responsive verbal stimuli oriented to person only. Slow to respond to questions otherwise
Sepsis
Sepsis Screening
Sepsis Assessment: Sepsis
Sepsis Screen
Sepsis Screen: Sepsis
Date: 10/09/24
Time: 01:14
Course
Orders/Labs/Results
Orders:
Orders
10/08/24 23:04
CR Chest Portable - 1 View Urgent
Comment:
Reason For Exam: fever, weakness
Reason Study Needs to be Portable: Unable to Transport
10/08/24 23:05
Urinalysis Reflex To Culture Urgent
Date Specimen was Collected: 10/09/24
Time Specimen was Collected: 00:15
10/08/24 23:15
Blood Culture Q30M
NIKKIE Source: Blood/Venous
Specimen Description:
10/08/24 23:16
COVID-19 Antigen Urgent
Source: Nasal Swab
Influenza A+B Rapid Molecular Urgent
NIKKIE Source: Nasal Swab
Specimen Description:
10/08/24 23:17
Basic Metabolic Panel Urgent
Comment: NO K
Complete Blood Count/With Diff Urgent
Lactic Acid Q4H
Comment: CANCEL 2nd LACTIC ACID IF 1st LACTIC ACID IS LESS THAN 2
10/08/24 23:45
Blood Culture Q30M
NIKKIE Source: Blood/Venous
Specimen Description:
10/09/24 00:17
Urine Microscopic Reflex Cult Urgent
Urine Culture Urgent
NIKKIE Source: U
Specimen Description:
Date Specimen was Collected: 10/09/24
Time Specimen was Collected: 00:15
10/09/24 00:25
0.9% Sodium Chloride 1000 ml [Nss] 1,000 ml IV BOLUS
10/09/24 00:39
Ifveb-Sklq-Wroxzbb Urgent
Potassium Urgent
Comment: REDRAW
10/09/24 01:11
*Vancomycin 2,000 mg Loading Dose (consider for >/= 70 kg) Vancomycin [Vancocin] 2,000 mg 0.9% Sodium Chloride 500 ml [Nss] 500 ml IV NOW
10/09/24 01:12
LevoFLOXacin 500 mg IVPB NOW LevoFLOXacin 500 MG/100 ML [Levaquin] 500 mg in 100 ml IV NOW
10/09/24 03:15
Lactic Acid Q4H
Comment: CANCEL 2nd LACTIC ACID IF 1st LACTIC ACID IS LESS THAN 2
Abnormal Lab Results
10/08/24 10/09/24
23:17 00:17
WBC 13.6 H 10^3/uL
(4.8-10.8)
Hgb 16.8 H g/dL
(12.0-16.0)
Hct 49.5 H %
(37.0-47.0)
MCH 32.4 H pg
(27.0-31.0)
MPV 12.8 H fL
(7.4-10.4)
Abs Immat Gran (auto) 0.2 H 10^3/uL
(0-0.05)
Absolute Neuts (auto) 11.3 H 10^3/uL
(1.4-6.5)
Immature Gran % 1.2 H %
(0-0.5)
Neutrophils % 82.7 H %
(42.2-75.2)
Lymphocytes % 11.0 L %
(20.5-51.1)
Chloride 93 L mmol/L
(98-107)
BUN 28 H mg/dl
(7-17)
Glucose 163 H mg/dl
(70-99)
Lactic Acid 2.2 H mmol/L
(0.7-2.0)
Urine Ketones Trace A
(Negative)
Ur Occult Blood Reflex 3+ A
(Negative)
Urine Bilirubin 1+ A
(Negative)
Leukocyte Esterase Rfl 1+ A
(Negative)
Urine Albumin (Reflex) 1+ A
(Neg - Trace)
10/08/24 23:17
Vital Signs
Initial and Last Documented VS:
Initial Vital Signs
Temp Pulse Resp BP Pulse Ox
100.2 F 100 20 144/74 97
10/08/24 23:05 10/08/24 23:05 10/08/24 23:05 10/08/24 23:05 10/08/24 23:05
Last Documented Vital Signs
Temp Pulse Resp BP Pulse Ox
102.2 F H 95 29 133/65 98
10/09/24 00:10 10/09/24 01:00 10/09/24 01:00 10/09/24 01:00 10/09/24 01:00
MDM/Problems Addressed
Differential Diagnosis Includes:
Patient with reported fever and fatigue over the past 2 to 3 days. Recent exposure to COVID. Question viral illness such as COVID or flu versus sepsis versus pneumonia or UTI.
Patient has a temperature of 100.2 on triage. Will get blood cultures lactic acid.
*Critical Care Note
Total Time (30-74mins, 75-104mins- exclusive of procedures): Not Applicable
Update Note
Update Note:
Temp now 102.2 with a lactic acid of 2.2. Leukocytosis with 13.3. Family now in the room. I spoke with the who states she has been getting worse over the past 4 to 5 days. Possible infiltrate noted on chest x-ray but pending official
radiology read. COVID and flu are negative. Will cover given recent hospital admission with vancomycin and Levaquin. Fluids ordered. Per patient has anaphylactic reactions to both aspirin and Tylenol.
ED Attending Note
-
Portions of this chart may have been created with voice recognition software.� Occasional wrong word or��sound alike� substitutions may have occurred due to the inherent limitations of voice recognition software.
Discharge Plan
Departure
Patient Disposition: Admit
Date of Disposition: 10/09/24
Time of Disposition: 01:13
Presentation/result/management discussed w/ accepting MD/DO: Hospitalist
Discharge Problem:
Fever
Prescriptions:
No Action
atorvastatin 40 mg tablet
40 mg PO HS
gabapentin 600 mg Tablet
600 mg PO Q8H
trazodone 50 mg tablet
25 mg PO HS
melatonin 3 mg Tablet
9 mg PO HS
phenytoin 50 mg tablet,chewable
200 mg PO Q12H
divalproex 500 mg tablet,delayed release (DR/EC)
500 mg PO Q8H
tramadol 50 mg tablet
50 mg PO Q8H PRN (Reason: moderate pain)
magnesium hydroxide [Milk of Magnesia] 400 mg/5 mL Suspension
30 ml PO DAILY PRN (Reason: if no bm x 3 days)
ascorbic acid (vitamin C) 500 mg Tablet
500 mg PO DAILY
bisacodyl [Dulcolax (bisacodyl)] 10 mg Suppository
10 mg [place] DAILY PRN (Reason: if no bm in 24hrs after MOM)
metformin 1,000 mg Tablet
1,000 mg PO BID
diphenhydramine HCl 25 mg Tablet
25 mg PO Q12H PRN (Reason: allergies)
lidocaine 5 % Adhesive Patch,Medicated
1 patch TOPICAL DAILY
Rx Instructions:
apply to right shoulder and right knee
Fleet Enema 19-7 gram/118 mL Enema
118 ml [place] DAILY PRN (Reason: if no bm in 24hrs after bisacodyl)
dextromethorphan-guaifenesin [Robitussin Honey Max DM] 5-100 mg/5 mL Liquid
20 ml PO Q4H PRN (Reason: cough/congestion)
albuterol sulfate 90 mcg/actuation HFA aerosol inhaler
2 puff INHALATION R Q4 PRN (Reason: wheezing)
sertraline 50 mg tablet
50 mg PO DAILY
Rx Instructions:
take with 100mg = 150mg total
propylene glycol-glycerin 1-0.3 % Drops
2 drp BOTH EYES Q4H PRN (Reason: eye irritation)
omeprazole 20 mg Tablet,Delayed Release (Dr/Ec)
20 mg PO DAILY
cholecalciferol (vitamin D3) [Vitamin D3] 50 mcg (2,000 unit) Tablet
50 mcg PO DAILY
mirabegron [Myrbetriq] 50 mg tablet extended release 24 hr
50 mg PO DAILY
apixaban 5 mg Tablet
5 mg PO Q12H
Gvoke HypoPen 2-Pack 1 mg/0.2 mL Auto-Injector
1 mg SC ONCE PRN (Reason: hypoglycemia, blood sugar <50)
insulin glargine-yfgn 100 unit/mL solution
26 unit SC .AM AND HS
mineral oil-hydrophil petrolat Ointment
1 applic TOPICAL BID
Patient Comments:
bilat lower extremities
Saline Mist 0.65 % Aerosol,[place]
1 spray INTRANASAL Q4H
Rx Instructions:
1 spray each nostril
niacin [Niacor] 500 mg Tablet
500 mg PO HS
fluticasone propionate 50 mcg/actuation [place],Suspension
2 spray INTRANASAL DAILY
Patient Comments:
BOTH NOSTRILS
diclofenac sodium 1 % Gel
1 ea TOPICAL Q8H
Rx Instructions:
apply to right shoulder
Zyrtec 10 mg Capsule
10 mg PO HS
ammonium lactate 12 % Lotion
1 applic TOPICAL Q12H
Rx Instructions:
apply to legs
ondansetron HCl [Zofran] 4 mg Tablet
4 mg PO Q8H PRN (Reason: nausea/vomiting)
glipizide 10 mg Tablet
10 mg PO BID
clonazepam 0.5 mg Tablet
0.5 mg PO DAILY
sertraline 100 mg Tablet
100 mg PO DAILY
Rx Instructions:
take with 50mg = 150mg total
clonazepam 1 mg Tablet
1 mg PO BID
benzonatate [Tessalon Perles] 100 mg Capsule
100 mg PO BID
hydrocortisone 1 % Cream
1 applic TOPICAL Q8H
Rx Instructions:
apply to R lateral back/upper butt for red, flat, itchy rash
albuterol sulfate [ProAir HFA] 90 mcg/actuation Hfa Aerosol Inhaler
2 puff INHALATION Q4HPRN PRN (Reason: wheezing)
loratadine [Claritin] 10 mg Tablet
10 mg PO DAILY
cyclobenzaprine 5 mg Tablet
5 mg PO DAILY PRN (Reason: muscle pain)
diclofenac sodium 1 % Gel
1 ea TOPICAL BID
Rx Instructions:
apply to R knee
dextromethorphan-quinidine 20-10 mg Capsule
1 cap PO Q12H
Rx Instructions:
for excessive crying
Chloraseptic Total 5-6-10 mg Lozenge
1 naz PO Q2H PRN (Reason: cough)
Lactaid
3 tab PO DAILY
Referrals:
UNKNOWN - PT DOES,NOT KNOW [Family Provider] -
Interventions
Interventions:
*Risk Screen - Suicide Last Done: 10/08/24 23:26
*General Assessment Last Done: 10/08/24 23:26
*Neglect/Abuse Screening Last Done: 10/08/24 23:26
ED- Fall Risk Assessment Last Done: 10/09/24 00:20
*ED COVID-19 Vaccine History Last Done: 10/08/24 23:26
ED- Cardiac Assessment Last Done: 10/09/24 00:23
ED- Neurological Assessment Last Done: 10/09/24 00:23
ED- Pulmonary Assessment Last Done: 10/09/24 00:23
Discharge Date and Time
Print Language: CITIZ[place]
[2024-10-08 23:05] VITALS: BP 144/74
[2024-10-08 23:28] LABS: % Basophils 0.6 % (0-2); % Immature Granulocytes 1.2 % (0-0.5); % Monocytes 3.5 % (1.7-9.3); % Neutrophils 82.7 % (42.2-75.2); Absolute Basophils 0.1 10^3/uL (0-0.2); Absolute Eosinophils 0.1 10^3/uL (0-0.7); Absolute Immature Granulocytes 0.2 10^3/uL (0-0.05); Absolute Lymphocytes 1.5 10^3/uL (1.2-3.4); Absolute Monocytes 0.5 10^3/uL (0.1-0.6); Absolute Neutrophils 11.3 10^3/uL (1.4-6.5); Hematocrit 49.5 % (37.0-47.0); Hemoglobin 16.8 g/dL (12.0-16.0); Mean Corp Hgb Conc. 33.9 g/dL (33.0-37.0); Mean Corpuscular Hgb 32.4 pg (27.0-31.0); Mean Corpuscular Volume 95.6 fL (81.0-99.0); Mean Platelet Volume 12.8 fL (7.4-10.4); Nucleated Red Blood Cells % 0 %; Platelet Count 216 10^3/uL (130-400); Red Blood Cell Count 5.18 10^6/uL (4.20-5.40); Red Cell Dist. Width 13.1 % (11.5-14.5); White Blood Cell Count 13.6 10^3/uL (4.8-10.8)
[2024-10-08 23:31] VITALS: BP 128/63
[2024-10-08 23:41] LABS: Lactic Acid 2.2 mmol/L (0.7-2.0)
[2024-10-08 23:47] LABS: COVID-19 Antigen Negative (Negative)
[2024-10-09] VITALS (10 sets, daily range): BP systolic 107–133; BP diastolic 52–74; PULSE 74; O2SAT 97; BMI 37.1
[2024-10-09 00:03] LABS: Blood Urea Nitrogen 28 mg/dl (7-17); Calcium 9.7 mg/dl (8.4-10.2); Carbon Dioxide 29 mmol/L (22-30); Chloride 93 mmol/L (98-107); Glucose 163 mg/dl (70-99); Sodium 135 mmol/L (135-145); eGFR > 60.00
[2024-10-09 00:28] LABS: Urine Albumin 1+ (Neg - Trace); Urine Bilirubin 1+ (Negative); Urine Character Slightly Cloudy (Clear); Urine Color Amber; Urine Glucose Negative (Negative); Urine Ketone Trace (Negative); Urine Leukocyte 1+ (Negative); Urine Nitrite Negative (Negative); Urine Occult Blood 3+ (Negative); Urine Urobilinogen 1+ (Neg - 1+)
[2024-10-09] MEDS: NSS 1000 IV (00:29)
[2024-10-09] MEDS: LEVAQUIN 100 IV (01:17)
[2024-10-09 01:29] LABS: Urine Amorphous Seen; Urine Bacteria Many (Negative); Urine Mucus Many; Urine Squamous Cell >30 /LPF (Few); Urine Urothelial Cell >30 /LPF (FEW); Urine White Cell >100 /HPF (0-5)
[2024-10-09 01:37] LABS: ALT (SGPT) 71 U/L (0-35); AST (SGOT) 54 U/L (14-36); Albumin 3.6 g/dl (3.5-5.0); Alkaline Phosphatase 88 U/L (38-126); Direct Bilirubin 0.1 mg/dl (0.0-0.4); Potassium 4.2 mmol/L (3.5-5.1); Total Bilirubin 0.4 mg/dl (0.2-1.3); Total Protein 6.4 g/dl (6.3-8.2)
--- NOTE | 2024-10-09 02:14 | HPS.HSE ---
Family Physician
-
Family Physician: NOT KNOW UNKNOWN - PT DOES
Chief Complaint
-
Fever and hypoxia
History of Present Illness
This is a 69-year-old female with past medical history of COPD, hypertension, atrial fibrillation, type 2 diabetes, anxiety was recently admitted to the hospital for COPD exacerbation and treated with improvement and discharged off of home O2
presenting to the emergency department from assisted living with weakness and fever. She was at the be hypoxic.
Patient is a fairly poor historian. She was arousable and responds to simple yes or no questions. She was able to report was not able to provide any details. She told me that she has not had any cough. She did cough while I was interviewing her
but this was not productive. She denies abdominal pain. She denies any nausea or vomiting. She specifically denies any urinary symptoms. She has known incontinence of the bladder and bowel but denies dysuria. She denies any flank pain. She is
not aware of fever. She denies having any headache or neck stiffness or neck pain.
In the ED blood pressure was 133/63, she was satting 98% on 2 L, respiratory rate was as high as 25. She was febrile to 102.9.
X-ray is equivocal with possible patchy interstitial infiltrates but no focal consolidation. This was similar to prior. UA shows equivocal finding as well with negative nitrites positive leukocyte esterase bacteria and WBCs but also lots of
squamous cells concerning for contaminated sample. She had leukocytosis to 13,000, hemoglobin and platelets were normal. Electrolytes BUN/creatinine were also normal. She had leukocytosis of 2.2. COVID and influenza are negative.
Medical History
Past Medical History
Past Medical History: Reports Other
Additional Past Medical History:
Awx-searpre-ajsrdywtw diabetes
Hypertension
Atrial fibrillation
GERD
Anxiety
Morbid obesity
COPD not on home O2
Past Surgical History: Reports Other
Social History
Tobacco: Non-smoker
Alcohol: None
Drug: None
Living: Assisted Living
Employment: Retired
Family History
Family History: Not pertinent
Allergies / Home Medications
Allergies reflects when Allergies were last updated in [employer].
Home Medications with original date entered in [employer]
Allergy/Medication List:
Allergies
Allergy/AdvReac Type Severity Reaction Status Date / Time
acetaminophen [From Tylenol] Allergy Swelling Verified 10/08/24 22:47
aspirin Allergy Swelling Verified 10/08/24 22:47
bee pollen Allergy Swelling Verified 10/08/24 22:47
Fish Containing Products Allergy Swelling Verified 10/08/24 22:47
Milk Containing Products Allergy Swelling Verified 10/08/24 22:47
(Dairy)
[Milk Containing Products]
Penicillins Allergy Swelling Verified 10/08/24 22:47
phenobarbital Allergy Swelling Verified 10/08/24 22:47
shellfish derived Allergy Swelling Verified 10/08/24 22:47
Home Medications
albuterol sulfate 90 mcg/actuation aerosol inhaler 2 puff inhalation R Q4 PRN wheezing 07/14/23
apixaban 5 mg tablet 5 mg PO Q12H Blood Clot Prevention/Tx 07/14/23
ascorbic acid (vitamin C) 500 mg tablet 500 mg PO DAILY Supplement 07/14/23
atorvastatin 40 mg tablet 40 mg PO HS High Cholesterol 07/14/23
bisacodyl 10 mg rectal suppository (Dulcolax (bisacodyl)) 10 mg ND DAILY PRN if no bm in 24hrs after MOM 07/14/23
cholecalciferol (vitamin D3) 50 mcg (2,000 unit) tablet (Vitamin D3) 50 mcg PO DAILY Supplement 07/14/23
dextromethorphan-guaifenesin 5 mg-100 mg/5 mL oral liquid (Robitussin Honey Max DM) 20 ml PO Q4H PRN cough/congestion 07/14/23
diphenhydramine HCl 25 mg tablet 25 mg PO Q12H PRN allergies 07/14/23
divalproex 500 mg tablet,delayed release 500 mg PO Q8H Seizures 07/14/23
gabapentin 600 mg tablet 600 mg PO Q8H 07/14/23
glucagon 1 mg/0.2 mL subcutaneous auto-injector (Gvoke HypoPen 2-Pack) 1 mg SC ONCE PRN hypoglycemia, blood sugar <50 07/14/23
insulin glargine-yfgn 100 unit/mL subcutaneous solution 26 unit SC .AM AND HS Diabetes 07/14/23
lidocaine 5 % topical patch 1 patch topical DAILY Pain 07/14/23
magnesium hydroxide 400 mg/5 mL oral suspension (Milk of Magnesia) 30 ml PO DAILY PRN if no bm x 3 days 07/14/23
melatonin 3 mg tablet 9 mg PO HS Sleep 07/14/23
metformin 1,000 mg tablet 1,000 mg PO BID Diabetes 07/14/23
mirabegron 50 mg tablet,extended release 24 hr (Myrbetriq) 50 mg PO DAILY Urinary Issue 07/14/23
omeprazole 20 mg tablet,delayed release 20 mg PO DAILY Gastrointestinal Issue 07/14/23
phenytoin 50 mg chewable tablet 200 mg PO Q12H Seizures 07/14/23
propylene glycol 1 %-glycerin 0.3 % eye drops 2 drp BOTH EYES Q4H PRN eye irritation 07/14/23
sertraline 50 mg tablet 50 mg PO DAILY Mental Health/Anxiety 07/14/23
sodium phosphates 19 gram-7 gram/118 mL enema (Fleet Enema) 118 ml ND DAILY PRN if no bm in 24hrs after bisacodyl 07/14/23
tramadol 50 mg tablet 50 mg PO Q8H PRN moderate pain 07/14/23
trazodone 50 mg tablet 25 mg PO HS Mental Health/Anxiety 07/14/23
cetirizine 10 mg capsule (Zyrtec) 10 mg PO HS Allergies 09/23/24
diclofenac sodium 1 % topical gel 1 ea topical Q8H 09/23/24
fluticasone propionate 50 mcg/actuation nasal spray,suspension 2 spray intranasal DAILY 09/23/24
mineral oil-hydrophil petrolat topical ointment 1 applic topical BID Skin Issues 09/23/24
niacin 500 mg tablet (Niacor) 500 mg PO HS 09/23/24
sodium chloride 0.65 % nasal spray aerosol (Saline Mist) 1 spray intranasal Q4H Lung/Breathing Issues 09/23/24
Lactaid 3 tab PO DAILY diarrhea 10/09/24
albuterol sulfate 90 mcg/actuation aerosol inhaler 2 puff inhalation Q4HPRN PRN wheezing 10/09/24
ammonium lactate 12 % lotion 1 applic topical Q12H 10/09/24
benzonatate 100 mg capsule 100 mg PO BID 10/09/24
clonazepam 0.5 mg tablet 0.5 mg PO DAILY 10/09/24
clonazepam 1 mg tablet 1 mg PO BID 10/09/24
cyclobenzaprine 5 mg tablet 5 mg PO DAILY PRN muscle pain 10/09/24
dextromethorphan 20 mg-quinidine 10 mg capsule 1 cap PO Q12H 10/09/24
dextromethorphan 5 mg-benzocaine 6 mg-menthol 10 mg lozenges (Chloraseptic Total) 1 naz PO Q2H PRN cough 10/09/24
diclofenac sodium 1 % topical gel 1 ea topical BID 10/09/24
glipizide 10 mg tablet 10 mg PO BID 10/09/24
hydrocortisone 1 % topical cream 1 applic topical Q8H 10/09/24
loratadine 10 mg tablet (Claritin) 10 mg PO DAILY 10/09/24
ondansetron HCl 4 mg tablet 4 mg PO Q8H PRN nausea/vomiting 10/09/24
sertraline 100 mg tablet 100 mg PO DAILY 10/09/24
Review of Systems
-
History Source: Patient and Transfer Record
Constitutional: Reports Fever and Fatigue
EENT: Reports No Symptoms
Respiratory: Reports Trouble Breathing
Cardiac: Reports No Symptoms
Abdomen/GI: Reports No Symptoms
: Reports No Symptoms
Musculoskeletal: Reports No Symptoms
Skin: Reports No Symptoms
Neurological: Reports No Symptoms
Endocrine: Reports No Symptoms
Hematologic/Lymphatic: Reports No Symptoms
Psych: Reports No Symptoms
Physical Exam
Vital Signs
Vital Signs
Temp Pulse Resp BP Pulse Ox
102.2 F H 95 29 133/65 98
10/09/24 00:10 10/09/24 01:00 10/09/24 01:00 10/09/24 01:00 10/09/24 01:00
Physical Exam
General: No Apparent Distress
HEENT: NormoCephalic, Anicteric, Moist mucous membranes and Atraumatic
Respiratory: Wheezes
Cardiac: S1/S2 and Regular Rhythm
Breast: Deferred by me
GI: Soft, Non Tender, Non Distended and Normal Bowel Sounds
Rectal: Deferred by Provider
Genito-urinary: Deferred by me
Musculoskeletal: No Clubbing, No Cyanosis and No Edema
Skin: Warm
Neuro: Alert (arousable and oriented to person and place. ), No Motor Deficits and Cranial Nerves Intact
Hematologic/Lymphatic: No Lymphadenopathy
Psych: Calm
Laboratory Results
-
10/08/24 23:17
10/09/24 01:13
Laboratory Results
Lactic Acid 2.2 mmol/L (0.7-2.0) H 10/08/24 23:17
Total Bilirubin 0.4 mg/dl (0.2-1.3) 10/09/24 01:13
AST 54 U/L (14-36) H 10/09/24 01:13
ALT 71 U/L (0-35) H 10/09/24 01:13
Alkaline Phosphatase 88 U/L (38-126) 10/09/24 01:13
Data Reviewed
-
Diagnostic Radiology: Image Personally Visualized and interpreted
Lab Data: Labs Reviewed by me
Old Records: Reviewed
Impression/Plan
-
IMPRESSION:
69-year-old female with multiple comorbidities who was recently admitted here for COPD exacerbation with wheezing and hypoxia and diagnosed with COPD exacerbation treated with steroid nebs and doxycycline and discharged on room air who returns to
the emergency department today for weakness and fever. Chest x-ray is equivocal with possible infiltrates but unclear. She has equivocal urinalysis. No other localizing findings. She is slightly hypoxic satting at around 92% on room air and 98%
on 2 L. COVID test negative. Influenza negative.
PLAN:
1. Pneumonia -fever and hypoxia consistent with pneumonia. However x-ray is not clear. Could also be secondary to urinary tract infection given equivocal UA and patient unable to provide history suggestive of symptoms.
- admit to med/surg
- blood cultures, urine culture
- IV vanc/levaquin for now pending culture
- obtain procalcitonin
- CT chest w/o contrast
- mrsa swab
- supplemental oxygen and prn nebs
2. AFIB
- continue apixaban
- no current rate agents.
3. Seizure d/o
- check dilantin level
- continue phenytoin 200mg bid
- continue depakote for now pending levels
4. DM II
- glargine 20 units am and hs (on 26 at home)
- insulin sliding scale moderate
- hold metformin
- continue glipizide 10 bid
DVT PPX - on apixaban
Code status - full code
--- NOTE | 2024-10-09 02:25 | EDRN ---
Called pharmacy for vancomycin
[2024-10-09] MEDS: VANCOCIN 540 MG IV (02:39)
[2024-10-09 04:21] LABS: Lactic Acid 1.2 mmol/L (0.7-2.0)
[2024-10-09 06:26] LABS: Hemoglobin 13.6 g/dL (12.0-16.0); Mean Corp Hgb Conc. 33.2 g/dL (33.0-37.0); Mean Corpuscular Hgb 32.4 pg (27.0-31.0); Mean Corpuscular Volume 97.6 fL (81.0-99.0); Mean Platelet Volume 12.1 fL (7.4-10.4); Platelet Count 177 10^3/uL (130-400); Red Cell Dist. Width 13.2 % (11.5-14.5)
[2024-10-09 07:18] LABS: Blood Urea Nitrogen 25 mg/dl (7-17); Calcium 8.3 mg/dl (8.4-10.2); Carbon Dioxide 30 mmol/L (22-30); Chloride 100 mmol/L (98-107); Estimated Creatinine Clearance 96 ml/min; Glucose 138 mg/dl (70-99); Potassium 3.8 mmol/L (3.5-5.1); Sodium 137 mmol/L (135-145); eGFR > 60.00
[2024-10-09 07:29] LABS: Glucose - Point of Care 138 mg/dl (70-99)
[2024-10-09] MEDS: NOVOLOG FLEXPEN-LOW RESISTANCE SC (07:38)
[2024-10-09] MEDS: DUONEB 3 ML INH ×4 (07:41→19:24)
--- NOTE | 2024-10-09 08:04 | PHA.VAN.IN ---
Assessment
- Assessment
Renal Function: Appears similar to baseline
Renal Function may be Overestimated due to: Obesity. BMI = 37.1
Maximum Temperature: 102.2
Minimum Temperature: 97.6
Concomitant Antimicrobials: Levofloxacin
AUC Dosing Plan
- Dosing Variables
Dosing Weight (kg): 95
Dosing CrCl (ml/min): 96
Vd coefficient (L/kg): 0.7
- Empiric Dosing
Initial / Loading Dose: Vanc 2000mg given 10/09 at 0239
Maintenance Regimen: Vanc 1250mg IV q12H. Begin 10/09 at 1800
Estimated AUC (mcg*h/mL): 475
Estimated Peak (mcg*h/mL): 29.6
Estimated Trough (mcg/ml): 12.2
Estimated Half Life (H): 8.2
- Monitoring
No levels ordered at this time: Consider levels after 10/10 1800 dose.
Pharmacokinetics Vancomycin I
- -
Patient Age: 69
Patient Sex: Female
Vancomycin Day #: 1
Indication: Pulmonary/Respiratory
Requesting Provider: Jaden
Pertinent Antimicrobial Allergies:
PCN = swelling
Height / Weight:
Height 5 ft 3 in
Actual Weight 95 kg
IBW in k.4
Adjusted BW in k.4
Pertinent Past Medical History: BMI = 37.1
- Vital Signs / Lab Results
Temp Pulse Resp BP Pulse Ox
97.6 F 89 20 124/61 94
10/09/24 07:44 10/09/24 03:00 10/09/24 03:00 10/09/24 03:00 10/09/24 03:00
Lab Results - Hematology
10/08/24 10/09/24
23:17 06:15
WBC 13.6 H 10.0
Lab Results - Chemistry
10/08/24 10/08/24 10/09/24
23:17 23:38 00:26
BUN 28 H
Creatinine 0.7
Estimated Creat Clear
Albumin Cancelled Cancelled Cancelled
10/09/24 10/09/24
01:13 06:15
BUN 25 H
Creatinine 0.6
Estimated Creat Clear 96
Albumin 3.6
10/08/24 10/09/24
23:17 03:52
Lactic Acid 2.2 H 1.2
Lab Results - Urine
10/09/24
00:17
Urine Nitrite (Reflex) Negative
Leukocyte Esterase Rfl 1+ A
Urine WBC (Reflex) >100 A
Ur Squamous Epith Cells >30
Urine Bacteria (Reflex) Many A
Microbiology Results
10/08/24 23:16 Influenza Types A & B (KAREN) - Final
Nasal Swab Negative for Influenza A & B, NAAT
Negative results must be combined with clinical observations
and patient history.
Nucleic Acid Amplification test (NAAT)performed on the
[employer] platform.
[2024-10-09] MEDS: PROTONIX 40 MG PO (08:11)
[2024-10-09] MEDS: KLONOPIN 1 MG PO ×2 (08:11→19:23)
[2024-10-09] MEDS: ELIQUIS 5 MG PO ×2 (08:12→19:23)
[2024-10-09] MEDS: DILANTIN 200 MG PO (08:12)
[2024-10-09] MEDS: DEPAKOTE (12 HR RELEASE) 500 MG PO ×2 (08:12→15:53)
[2024-10-09] MEDS: ULTRAM 50 MG PO (08:42)
[2024-10-09] MEDS: CLARITIN 10 MG PO (08:43)
[2024-10-09] MEDS: LANTUS 0.2 UNITS SC ×2 (08:43→21:48)
[2024-10-09] MEDS: ZOLOFT 150 MG PO (08:43)
[2024-10-09] MEDS: MYRBETRIQ EXTENDED RELEASE 50 MG PO (08:43)
[2024-10-09] MEDS: GLUCOTROL 10 MG PO ×2 (08:44→18:07)
[2024-10-09] MEDS: OCEAN, SALINE MIST 1 SPRAYS NASAL (08:44)
[2024-10-09] MEDS: NEURONTIN 600 MG PO ×2 (10:56→15:53)
[2024-10-09] MEDS: AZACTAM 1000 MG IV ×2 (10:56→18:07)
[2024-10-09] MEDS: STERILE WATER FOR INJECTION 10 ML IV ×2 (10:57→18:12)
--- NOTE | 2024-10-09 11:24 | W.PN.HOSP.TC ---
Today's Communication/Plan
-
Check Depakote and Dilantin levels
Speech evaluation
Continue antibiotics
Add steroids
Assessment / Plan
Assessment / Plan
69-year-old female with COPD was admitted to [facility] for COPD exacerbation and was discharged 09/26/[address]24
[address] scan of the chest reviewed by me- pneumonitis pattern
Patient states she does not know why she is here. Cannot give me any history
CVS: S1-S2 normal
Chest: rales B/L
Abdomen: Soft, NT / Bowel sounds present
Extremities: No edema
# Fever
Acute hypoxic respiratory insufficiency secondary to pneumonia
Treat as atypical pneumonia
Blood cultures pending
Sputum cultures with possible
Influenza and COVID-negative
White count better
Continue vancomycin
Stop Levaquin secondary to history of seizures, add Azactam
# Abnormal urinalysis-treat as UTI.
ON AB
Await cultures
# Advanced COPD/asthma with acute exacerbation
Add steroids also
Albuterol
# Elevated transaminases-follow
# Hyperlipidemia-continue statin. We may need to hold if LFTs go up
# Chronic hypercapnia
# Diabetes-continue Lantus 20 units twice daily, metformin 1000 mg twice daily, trazodone, glipizide 10 mg twice daily Accu-Cheks and sliding scale coverage
# Chronic HFpEF
ECHO 09/23/24-Normal biventricular size and systolic function without regional wall motion abnormality. No significant valvular disease. At least moderate pulmonary hypertension.
# Sleep apnea-unclear if she uses PAP device
# Moderate pulmonary hypertension
# Hypertension
# Paroxysmal atrial fibrillation-continue Eliquis
# GERD-Add Pepscid
# Anxiety continue Klonopin, sertraline
# Seizures-continue Dilantin, Depakote-check levels
# Insomnia-continue melatonin, trazodone
# Obesity with a BMI of 37
# DVT prophylaxis-Eliquis
# Full code
I called the number listed which went to [facility]. I was told that the nurse is not available right now and she will call me back through [facility] copy operator.
time spent over 50 min
Anticipated Discharge: 24 - 48 hours
Subjective/Interval History
-
Date of Service: October 09, 2024
Objective Data
-
Labs:
Laboratory Results
10/08/24 10/08/24 10/09/24
23:17 23:38 00:26
WBC 13.6 H
Hgb 16.8 H
Hct 49.5 H
Plt Count 216
Sodium 135
Potassium Cancelled Cancelled
Chloride 93 L
Carbon Dioxide 29
BUN 28 H
Creatinine 0.7
Glucose 163 H
Calcium 9.7
Total Bilirubin Cancelled Cancelled Cancelled
AST Cancelled Cancelled Cancelled
ALT Cancelled Cancelled Cancelled
Alkaline Phosphatase Cancelled Cancelled Cancelled
10/09/24 10/09/24
01:13 06:15
WBC 10.0
Hgb 13.6
Hct 41.0
Plt Count 177
Sodium 137
Potassium 4.2 3.8
Chloride 100
Carbon Dioxide 30
BUN 25 H
Creatinine 0.6
Glucose 138 H
Calcium 8.3 L
Total Bilirubin 0.4
AST 54 H
ALT 71 H
Alkaline Phosphatase 88
Vital Signs:
Vital Signs
Temp Pulse Resp BP Pulse Ox
98.1 F 81 18 124/74 96
10/09/24 11:19 10/09/24 11:19 10/09/24 11:19 10/09/24 11:19 10/09/24 11:19
I&O
10/08/24 10/09/2410/10/25
06:59 06:59 06:59
Intake Total 480 / 480
Balance 480 / 480
[2024-10-09] MEDS: OCEAN, SALINE MIST NASAL ×3 (12:05→20:05)
[2024-10-09 13:19] LABS: Glucose - Point of Care 178 mg/dl (70-99)
[2024-10-09] MEDS: NOVOLOG FLEXPEN-LOW RESISTANCE 1 UNITS SC ×2 (13:35→18:23)
[2024-10-09] MEDS: PEPCID 20 MG PO ×2 (13:35→19:23)
[2024-10-09] MEDS: DELTASONE 40 MG PO (13:37)
[2024-10-09 15:12] LABS: Dilantin 5.7 ug/ml (10-20)
[2024-10-09 15:14] LABS: Depakane 40.7 ug/ml (50.0-120.0)
--- NOTE | 2024-10-09 16:09 | CM ---
CM spoke with [facility] staff
Pt is a LTC resident
AxO to person and place typically, forgetful
Pt is non ambulatory, 2 person assist for transfers, unable to propel WC
Requires supervision for eating and full assist for bathing
Not on O2 baseline but has a PRN order at SNF
PCP- Rafi Bhagat
Rx-Specialty
Spouse is primary contact, admissions to add to chart
Jere Beal [phone]
Discharge Disposition- return [facility] for LTC
[2024-10-09 17:54] LABS: Glucose - Point of Care 177 mg/dl (70-99)
[2024-10-09] MEDS: VANCOCIN 275 MG IV (18:17)
[2024-10-09] MEDS: DILANTIN 300 MG PO (19:21)
[2024-10-09] MEDS: MELATONIN 9 MG PO (21:27)
[2024-10-09] MEDS: ZYRTEC 10 MG PO (21:29)
[2024-10-09] MEDS: DESYREL 25 MG PO (21:29)
[2024-10-09] MEDS: LIPITOR 40 MG PO (21:29)
[2024-10-09 21:31] LABS: Glucose - Point of Care 193 mg/dl (70-99)
[2024-10-10] VITALS (8 sets, daily range): BP systolic 110–128; BP diastolic 49–92
[2024-10-10] MEDS: NEURONTIN 600 MG PO ×3 (00:08→16:20)
[2024-10-10] MEDS: OCEAN, SALINE MIST 1 SPRAYS NASAL ×3 (00:08→16:20)
[2024-10-10] MEDS: DEPAKOTE (12 HR RELEASE) 500 MG PO ×3 (00:08→16:20)
[2024-10-10] MEDS: AZACTAM 1000 MG IV ×3 (03:00→17:43)
[2024-10-10] MEDS: STERILE WATER FOR INJECTION 10 ML IV ×3 (03:00→17:43)
[2024-10-10] MEDS: OCEAN, SALINE MIST NASAL ×3 (05:04→21:41)
[2024-10-10] MEDS: VANCOCIN 275 MG IV ×2 (05:04→17:23)
[2024-10-10 06:19] LABS: Blood Urea Nitrogen 15 mg/dl (7-17); Calcium 8.7 mg/dl (8.4-10.2); Carbon Dioxide 29 mmol/L (22-30); Chloride 96 mmol/L (98-107); Estimated Creatinine Clearance 96 ml/min; Glucose 78 mg/dl (70-99); Sodium 135 mmol/L (135-145); eGFR > 60.00
[2024-10-10] MEDS: DUONEB 3 ML INH ×3 (06:48→20:28)
[2024-10-10 08:59] LABS: Glucose - Point of Care 82 mg/dl (70-99)
[2024-10-10] MEDS: NOVOLOG FLEXPEN-LOW RESISTANCE SC ×2 (08:59→17:29)
[2024-10-10] MEDS: DILANTIN 300 MG PO ×2 (09:00→21:39)
[2024-10-10] MEDS: DELTASONE 40 MG PO (09:00)
[2024-10-10] MEDS: LANTUS 0.2 UNITS SC ×2 (09:01→21:41)
[2024-10-10] MEDS: KLONOPIN 1 MG PO ×2 (09:01→21:40)
[2024-10-10] MEDS: PROTONIX 40 MG PO (09:01)
[2024-10-10] MEDS: ELIQUIS 5 MG PO ×2 (09:01→21:40)
[2024-10-10] MEDS: PEPCID 20 MG PO ×2 (09:01→21:40)
[2024-10-10] MEDS: ZOLOFT 150 MG PO (09:02)
[2024-10-10] MEDS: MYRBETRIQ EXTENDED RELEASE 50 MG PO (09:02)
[2024-10-10] MEDS: CLARITIN 10 MG PO (09:03)
[2024-10-10] MEDS: GLUCOTROL 10 MG PO ×2 (09:03→16:21)
--- NOTE | 2024-10-10 11:18 | W.PN.HOSP.TC ---
Today's Communication/Plan
-
Continue antibiotics
Dilantin and Depakote levels tomorrow
PT OT
speech eval
Assessment / Plan
Assessment / Plan
69-year-old female with COPD was admitted to [facility] for COPD exacerbation and was discharged 09/26/[address] scan of the chest reviewed by me- pneumonitis pattern
Patient states she does not know why she is here. Cannot give me any history.
CVS: S1-S2 normal
Chest: rales B/L
Abdomen: Soft, NT / Bowel sounds present
Extremities: No edema
# Fever
Acute hypoxic respiratory insufficiency secondary to pneumonia
Treat as atypical pneumonia
Blood cultures pending
Sputum cultures with possible
Influenza and COVID-negative
White count better
Continue vancomycin
Stopped Levaquin secondary to history of seizures, added Azactam
# Abnormal urinalysis-treat as UTI.
ON AB
Await cultures
# Advanced COPD/asthma with acute exacerbation
Added steroids also
Albuterol
# Elevated transaminases-follow
# Hyperlipidemia-continue statin. We may need to hold if LFTs go up
# Chronic hypercapnia
# Diabetes-continue Lantus 20 units twice daily, metformin 1000 mg twice daily, trazodone, glipizide 10 mg twice daily Accu-Cheks and sliding scale coverage
# Chronic HFpEF
ECHO 09/23/24-Normal biventricular size and systolic function without regional wall motion abnormality. No significant valvular disease. At least moderate pulmonary hypertension.
# Moderate pulmonary hypertension
# Paroxysmal atrial fibrillation-continue Eliquis
# GERD-Add Pepscid
# Anxiety - continue Klonopin, sertraline
# Seizures- continue Dilantin, Depakote
# Insomnia - continue melatonin, trazodone
# Dementia - Past month she had a decline.
# Obesity with a BMI of 37
# DVT prophylaxis-Eliquis
# Full code
Spoke to patient's . Patient lives at the [place] [facility] for the past 7 years. Denies sleep apnea. He was updated regarding patient's condition. She does not see a neurologist. Discussed about Dilantin levels and adjustment. CODE STATUS
addressed. He wants to keep her as a full code
Time spent over 40 min
Anticipated Discharge: > 48 hours
Subjective/Interval History
-
Date of Service: October 10, 2024
Objective Data
-
Labs:
Laboratory Results
10/10/24
04:54
Sodium 135
Potassium
Chloride 96 L
Carbon Dioxide 29
BUN 15
Creatinine 0.5 L
Glucose 78
Calcium 8.7
Total Bilirubin Cancelled
AST Cancelled
ALT Cancelled
Alkaline Phosphatase Cancelled
Vital Signs:
Vital Signs
Temp Pulse Resp BP Pulse Ox
97.8 F 68 16 115/70 92
10/10/24 08:00 10/10/24 08:00 10/10/24 08:00 10/10/24 08:00 10/10/24 08:00
I&O
10/09/24 10/10/24 10/11/24
06:59 06:59 06:59
Intake Total 1005 / 1005
Output Total 1100 / 1100
Balance -95 / -95
--- NOTE | 2024-10-10 11:21 | PHA.VAN.FU ---
Vancomycin Assessment / Plan
- Assessment
Renal Function: Stable
WBC's are: WNL
In the past 24 hrs, patient has been: Afebrile
Concomitant Antimicrobials: aztreonam
- Dosing Plan
Continue: vanc 1250 mg q12h - first dose 10/09/24 1800
- Monitoring Plan
Peak Level: 10/10/24 2100 - after 4th total dose
Trough Level: 10/11/24 0530
- Follow Up
Pharmacy will continue to follow.
Vancomycin Follow UP
- -
Patient Age: 69
Patient Sex: Female
Vancomycin Day #: 2
Indication: Pulmonary/Respiratory
Requesting Provider: Jaden
Pertinent Antimicrobial Allergies:
PCN = swelling
Height / Weight:
Height 5 ft 3 in
Actual Weight 95 kg
IBW in k.4
Adjusted BW in k.4
Pertinent Past Medical History: BMI = 37.1
- Vital Signs / Lab Results
Temp Pulse Resp BP Pulse Ox
97.8 F 68 16 115/70 92
10/10/24 08:00 10/10/24 08:00 10/10/24 08:00 10/10/24 08:00 10/10/24 08:00
Lab Results - Hematology
10/08/24 10/09/24
23:17 06:15
WBC 13.6 H 10.0
Lab Results - Chemistry
10/08/24 10/08/24 10/09/24
23:17 23:38 00:26
BUN 28 H
Creatinine 0.7
Estimated Creat Clear
Albumin Cancelled Cancelled Cancelled
10/09/24 10/09/24 10/10/24
01:13 06:15 04:54
BUN 25 H 15
Creatinine 0.6 0.5 L
Estimated Creat Clear 96 96
Albumin 3.6 Cancelled
10/08/24 10/09/24
23:17 03:52
Lactic Acid 2.2 H 1.2
Microbiology Results
10/09/24 00:17 Urine Culture - Final
Urine
10/09/24 03:52 MRSA Screen - Final
Nose No Methicillin Resistant Staphylococcus aureus isolated.
10/09/24 00:46 Blood Culture - Preliminary
Blood/Venous No Growth in 24 hours- Final report to follow
10/09/24 00:26 Blood Culture - Preliminary
Blood/Venous No Growth in 24 hours- Final report to follow
10/08/24 23:16 Influenza Types A & B (KAREN) - Final
Nasal Swab Negative for Influenza A & B, NAAT
Negative results must be combined with clinical observations
and patient history.
Nucleic Acid Amplification test (NAAT)performed on the
[employer] platform.
--- NOTE | 2024-10-10 12:33 | PTOTSP ---
Dysphagia Evaluation
Patient with acute on chronic risk factors for dysphagia (i.e., current PNA and UTI; baseline COPD, dementia, GERD, TBI) and currently with signs concerning for possible mild oral/pharyngeal dysphagia.
Recommend:
1. IDDSI Level 6 Soft and Bite Sized, Thin Liquids
2. Medications: as best tolerated
3. Strategies: PO only when awake/alert, full supervision, slow rate, reflux precautions
4. Oral care 3x daily
5. Consider video swallow study if concerned for aspiration component
[2024-10-10 13:00] LABS: Glucose - Point of Care 174 mg/dl (70-99)
[2024-10-10] MEDS: NOVOLOG FLEXPEN-LOW RESISTANCE 1 UNITS SC (13:16)
--- NOTE | 2024-10-10 13:45 | PTCARENOTE ---
patient transferred from ED. on tele, NSR in the 60s, confused to time and occasionally place. assessment as documented. in for video swallow. accu checks with sliding scale orders. patient is incontinent. purewick in place. makes simple needs
known. c/o pain in r ankle due to fall, unable to elaborate and provide details. MD notified.
--- NOTE | 2024-10-10 14:36 | PTOTSP ---
Video Swallow Study
Summary: Patient with mild oral and mild-moderate pharyngeal dysphagia with deep penetration and aspiration of thin liquids. Please see patient care note for full details of penetration/aspiration and swallowing physiology.
Consider the following:
1. IDDSI Level 6 Soft and Bite Sized, L2 Mildly Thick Liquids
2. Medications: in puree
3. Strategies: PO only when awake/alert, full supervision, slow rate, reflux precautions
4. Aspiration Risk Hydration Protocol - thin water in between meals, after oral care, with supervision
5. Oral care 3x daily
6. Dysphagia therapy at the acute care level
[2024-10-10] MEDS: DUONEB INH (15:19)
--- NOTE | 2024-10-10 16:11 | VATNOTE ---
unsuccessful IV restart x3; will ask another VAT RN to attempt.
[2024-10-10] MEDS: ROXICODONE 5 MG PO (17:44)
[2024-10-10 21:19] LABS: Glucose - Point of Care 221 mg/dl (70-99)
[2024-10-10] MEDS: DESYREL 25 MG PO (21:40)
[2024-10-10] MEDS: LIPITOR 40 MG PO (21:41)
[2024-10-10] MEDS: ZYRTEC 10 MG PO (21:41)
[2024-10-10] MEDS: MELATONIN 9 MG PO (21:41)
[2024-10-10 22:44] LABS: Vancomycin Peak 22.6 ug/ml (18-26)
[2024-10-11] VITALS (7 sets, daily range): BP systolic 105–124; BP diastolic 53–62; PULSE 68
[2024-10-11] MEDS: DEPAKOTE (12 HR RELEASE) 500 MG PO ×4 (00:24→23:23)
[2024-10-11] MEDS: OCEAN, SALINE MIST NASAL ×7 (00:24→23:28)
[2024-10-11] MEDS: NEURONTIN 600 MG PO ×4 (00:25→23:23)
[2024-10-11] MEDS: AZACTAM 1000 MG IV ×3 (02:46→17:54)
[2024-10-11] MEDS: STERILE WATER FOR INJECTION 10 ML IV ×3 (02:46→17:55)
[2024-10-11] MEDS: VANCOCIN 275 MG IV ×2 (07:39→17:55)
[2024-10-11] MEDS: DUONEB INH (08:10)
[2024-10-11 08:12] LABS: Dilantin 8.1 ug/ml (10-20)
[2024-10-11 08:14] LABS: Depakane 33.4 ug/ml (50.0-120.0)
[2024-10-11 08:15] LABS: Vancomycin Trough 13.6 ug/ml (5-20)
[2024-10-11 08:29] LABS: Glucose - Point of Care 63 mg/dl (70-99)
[2024-10-11 08:50] LABS: Glucose - Point of Care 124 mg/dl (70-99)
[2024-10-11 09:27] LABS: ALT (SGPT) 67 U/L (0-35); AST (SGOT) 62 U/L (14-36); Albumin 3.2 g/dl (3.5-5.0); Alkaline Phosphatase 95 U/L (38-126); Blood Urea Nitrogen 13 mg/dl (7-17); Calcium 8.9 mg/dl (8.4-10.2); Carbon Dioxide 32 mmol/L (22-30); Chloride 98 mmol/L (98-107); Estimated Creatinine Clearance 96 ml/min; Glucose 47 mg/dl (70-99); Potassium 3.7 mmol/L (3.5-5.1); Sodium 137 mmol/L (135-145); Total Bilirubin 0.2 mg/dl (0.2-1.3); Total Protein 5.9 g/dl (6.3-8.2); eGFR > 60.00
[2024-10-11] MEDS: LANTUS SC (10:10)
[2024-10-11] MEDS: LANTUS 0.15 UNITS SC (10:12)
[2024-10-11] MEDS: DILANTIN 200 MG PO ×2 (10:12→20:47)
[2024-10-11] MEDS: NOVOLOG FLEXPEN-LOW RESISTANCE SC ×2 (10:14→12:53)
[2024-10-11] MEDS: DELTASONE 40 MG PO (10:15)
[2024-10-11] MEDS: ZOLOFT 150 MG PO (10:15)
[2024-10-11] MEDS: CLARITIN 10 MG PO (10:15)
[2024-10-11] MEDS: PROTONIX 40 MG PO (10:15)
[2024-10-11] MEDS: KLONOPIN 1 MG PO ×2 (10:15→20:47)
[2024-10-11] MEDS: GLUCOTROL PO (10:16)
[2024-10-11] MEDS: ELIQUIS 5 MG PO ×2 (10:16→20:47)
[2024-10-11] MEDS: MYRBETRIQ EXTENDED RELEASE 50 MG PO (10:17)
[2024-10-11] MEDS: PEPCID 20 MG PO ×2 (10:17→20:48)
[2024-10-11] MEDS: GLUCOPHAGE 1000 MG PO ×2 (10:19→17:54)
--- NOTE | 2024-10-11 10:20 | PHA.VAN.FU ---
Vancomycin Assessment / Plan
- Assessment
Renal Function: Stable
WBC's are: WNL
In the past 24 hrs, patient has been: Afebrile
Concomitant Antimicrobials: aztreonam
- Assessment - Therapeutic Drug Monitoring
Extrapolated Cmax (mcg/mL): 26.6*
Peak level was drawn: More than 3 hours after previous dose (drawn just over 3H after end of prior infusion, ~3.1H)
Extrapolated Cmin (mcg/mL): 15.3
Trough Drawn: Appropriately (drawn late but drawn prior to dose being scanned as given)
Levels were drawn: At steady state (levels drawn after 3rd maintenance dose)
Calculated AUC (mcg*h/mL): 492*
Calculated ke: 0.0525
Calculated half life (H): 13.2*
Calculated Vd (L): 97 (~1 L/kg)
Calculated Vanc CL (ml/min): 85
*Since peak was drawn late, this may lead to underestimation of AUC & Cmax and overestimation of half-life in above calculations
- Dosing Plan
Continue: Vanc 1250mg Q12H
Adjust Regimen to:
Unclear if half-life is truly greater than dosing interval or if an artifact of peak being drawn late
- Monitoring Plan
No level(s) ordered at this time: consider repeat levels in next few days to assess for accumulation
- Follow Up
Pharmacy will continue to follow.
Vancomycin Follow UP
- -
Patient Age: 69
Patient Sex: Female
Vancomycin Day #: 3
Indication: Pulmonary/Respiratory
Requesting Provider: Jaden
Pertinent Antimicrobial Allergies:
penicillin - swelling
Height / Weight:
Height 5 ft 3 in
Actual Weight 95 kg
IBW in k.4
Adjusted BW in k.4
Pertinent Past Medical History: BMI ~37
- Vital Signs / Lab Results
Temp Pulse Resp BP Pulse Ox
97.9 F 64 18 121/59 92
10/11/24 08:30 10/11/24 08:30 10/11/24 08:30 10/11/24 08:30 10/11/24 08:30
Lab Results - Hematology
10/08/24 10/09/24
23:17 06:15
WBC 13.6 H 10.0
Lab Results - Chemistry
10/08/24 10/08/24 10/09/24
23:17 23:38 00:26
BUN 28 H
Creatinine 0.7
Estimated Creat Clear
Albumin Cancelled Cancelled Cancelled
10/09/24 10/09/24 10/10/24
01:13 06:15 04:54
BUN 25 H 15
Creatinine 0.6 0.5 L
Estimated Creat Clear 96 96
Albumin 3.6 Cancelled
10/11/24
07:38
BUN 13
Creatinine 0.5 L
Estimated Creat Clear 96
Albumin 3.2 L
10/08/24 10/09/24
23:17 03:52
Lactic Acid 2.2 H 1.2
Microbiology Results
10/09/24 00:46 Blood Culture - Preliminary
Blood/Venous No Growth in 48 hours- Final report to follow
10/09/24 00:26 Blood Culture - Preliminary
Blood/Venous No Growth in 48 hours- Final report to follow
10/09/24 00:17 Urine Culture - Final
Urine
10/09/24 03:52 MRSA Screen - Final
Nose No Methicillin Resistant Staphylococcus aureus isolated.
Therapeutic Drug Monitoring
Vancomycin Peak 22.6 ug/ml (18-26) 10/10/24 21:58
Vancomycin Trough 13.6 ug/ml (5-20) 10/11/24 07:38
[2024-10-11] MEDS: DILANTIN PO (10:26)
--- NOTE | 2024-10-11 11:12 | W.PN.HOSP.TC ---
Today's Communication/Plan
-
Insulin adjusted for hypoglycemia
Check ultrasound of the abdomen
If doing well hopefully discharge soon.
Assessment / Plan
Assessment / Plan
69-year-old female with COPD was admitted to [facility] for COPD exacerbation and was discharged 09/26/2024
CT scan of the chest reviewed by me- pneumonitis pattern
CVS: S1-S2 normal
Chest: rales B/L
Abdomen: Soft, NT / Bowel sounds present
Extremities: No edema
# Fever
Acute hypoxic respiratory insufficiency secondary to pneumonia
Treat as atypical pneumonia
Blood cultures pending
Sputum cultures with possible
Influenza and COVID-negative
White count better
Continue vancomycin
Stopped Levaquin secondary to history of seizures, added Azactam
# Abnormal urinalysis-treat as UTI.
ON AB
Await cultures
# Advanced COPD/asthma with acute exacerbation
Added steroids also
Albuterol
# Elevated transaminases-Check USS abdomen
# Hyperlipidemia-continue statin. We may need to hold if LFTs go up
# Chronic hypercapnia
# Diabetes-Usees Lantus 26 units twice daily, metformin 1000 mg twice daily, trazodone, glipizide 10 mg twice daily Accu-Cheks and sliding scale coverage.
Blood sugar was low this morning therefore hold glipizide this morning. Continue metformin. Lantus 15 units this morning
Lantus changed to 18 units at night and 20 units starting tomorrow morning.
# Chronic HFpEF
ECHO 09/23/24-Normal biventricular size and systolic function without regional wall motion abnormality. No significant valvular disease. At least moderate pulmonary hypertension.
# Moderate pulmonary hypertension
# Paroxysmal atrial fibrillation-continue Eliquis
# GERD-Add Pepscid
# Anxiety - continue Klonopin, sertraline
# Seizures- continue Dilantin, Depakote . Levels low. Initially had increased Dilantin to 300 twice daily. Discussed with neurology on-call today. Since patient has not had any seizures advised to go back to Dilantin 200 mg twice daily dose
along with Depakote previous dose. Even though levels are low continue with outpatient dose only.
# Insomnia - continue melatonin, trazodone
# Dementia - Past month she had a decline per discussion with .
# Obesity with a BMI of 37
# DVT prophylaxis-Eliquis
# Full code
10/10/2024-spoke to patient's . Patient lives at the care home for the past 7 years. Denies sleep apnea. He was updated regarding patient's condition. She does not see a neurologist. CODE STATUS addressed. He wants to keep her as a
full code
Anticipated Discharge: Within 24 hours
Subjective/Interval History
-
Date of Service: October 11, 2024
Objective Data
-
Labs:
Laboratory Results
10/11/24
07:38
Sodium 137
Potassium 3.7
Chloride 98
Carbon Dioxide 32 H
BUN 13
Creatinine 0.5 L
Glucose 47 L*
Calcium 8.9
Total Bilirubin 0.2
AST 62 H
ALT 67 H
Alkaline Phosphatase 95
Vital Signs:
Vital Signs
Temp Pulse Resp BP Pulse Ox
97.9 F 64 18 121/59 92
10/11/24 08:30 10/11/24 08:30 10/11/24 08:30 10/11/24 08:30 10/11/24 08:30
I&O
10/10/24 10/11/24 10/12/24
06:59 06:59 06:59
Intake Total 1005 / 1005
Output Total 1100 / 1100 700 / 700
Balance -95 / -95 -700 / -700
[2024-10-11] MEDS: DUONEB 3 ML INH ×3 (11:28→20:08)
[2024-10-11] MEDS: SENOKOT 17.2 MG PO ×2 (11:48→20:47)
[2024-10-11] MEDS: ROXICODONE 5 MG PO (11:49)
--- NOTE | 2024-10-11 12:11 | PN.CDI ---
Addendum entered and electronically signed by Dariela Carney MD 10/11/24 22:45:
Documentation is complete at this time.
Original Note:
CDI
- -
CDI:
Physician Documentation Request
Admit Date: 10/09/24 02:59
Dear Doctor Angelika,
Patient admitted with pneumonia, abnormal urinalysis being treated at UTI, COPD/asthma exacerbation.
10/08 WBC 13.6, tmax 10/09 102.2 , Presenting heart rate 95-100, presenting respiratory rate 20-33
Please clarify which of the following most accurately describes the status of the patient's infection:
Sepsis
- Systemic manifestations of infection, with 2 or more SIRS criteria which include:
- Fever >100.4 degrees F or hypothermia < 96.8 degrees F
- Leukocytosis - WBC > 12,000 or leukopenia - WBC < 4,000 or > 10% bands
- Tachycardia > 90 beats per minute
- Tachypnea - RR > 20 breaths per minute or PaCO2 , 32mmHg
Source: Merck Manual 2013.
Localized Infections Only, Without Systemic Illness
- indicate the site/source, such as UTI, pneumonia etc.
Other
Use of terms such as suspected, likely, concern for, or probable (associated with a specific diagnosis that is being evaluated, monitored, or treated as if it exists) are acceptable and can be coded in the inpatient setting, when documented at the
time of discharge.
Thank you,
Ayla Urena RN, BSN
CDI Specialist
tiger text
Please use your independent medical judgment in providing your response.
[2024-10-11 12:56] LABS: Glucose - Point of Care 121 mg/dl (70-99)
[2024-10-11 17:16] LABS: Glucose - Point of Care 253 mg/dl (70-99)
[2024-10-11] MEDS: NOVOLOG FLEXPEN-LOW RESISTANCE 3 UNITS SC (17:53)
[2024-10-11] MEDS: GLUCOTROL 10 MG PO (17:54)
[2024-10-11] MEDS: FLUSH (NSS) 2 FLUSH IV (17:55)
[2024-10-11 20:43] LABS: Glucose - Point of Care 213 mg/dl (70-99)
[2024-10-11] MEDS: COLACE 100 MG PO (20:47)
[2024-10-11] MEDS: DESYREL 25 MG PO (20:48)
[2024-10-11] MEDS: MELATONIN 9 MG PO (20:48)
[2024-10-11] MEDS: LANTUS 0.18 UNITS SC (20:48)
[2024-10-11] MEDS: LIPITOR 40 MG PO (20:49)
[2024-10-11] MEDS: ZYRTEC 10 MG PO (20:49)
[2024-10-12] MEDS: AZACTAM 1000 MG IV ×2 (02:58→10:49)
[2024-10-12] MEDS: STERILE WATER FOR INJECTION 10 ML IV ×2 (02:58→10:45)
[2024-10-12] MEDS: DEXTROSE 50% SYRINGE 12.5 GRAMS IV ×2 (02:59→08:12)
[2024-10-12 03:00] LABS: Glucose - Point of Care 69 mg/dl (70-99)
[2024-10-12 03:05] VITALS: BP 123/62
[2024-10-12 03:25] LABS: Glucose - Point of Care 108 mg/dl (70-99)
[2024-10-12] MEDS: OCEAN, SALINE MIST NASAL ×5 (05:26→19:36)
[2024-10-12] MEDS: VANCOCIN 275 MG IV (05:45)
[2024-10-12] MEDS: DUONEB 3 ML INH ×2 (07:39→11:13)
[2024-10-12 08:11] LABS: Glucose - Point of Care 49 mg/dl (70-99)
[2024-10-12 08:19] VITALS: BP 121/59
[2024-10-12] MEDS: NOVOLOG FLEXPEN-LOW RESISTANCE SC ×3 (08:26→17:06)
[2024-10-12 08:32] LABS: Glucose - Point of Care 108 mg/dl (70-99)
[2024-10-12] MEDS: DEPAKOTE (12 HR RELEASE) PO (09:00)
[2024-10-12] MEDS: GLUCOTROL PO (10:08)
[2024-10-12] MEDS: GLUCOPHAGE PO (10:08)
[2024-10-12] MEDS: NEURONTIN 600 MG PO ×2 (10:34→17:08)
[2024-10-12] MEDS: ROXICODONE 2.5 MG PO (10:37)
[2024-10-12] MEDS: CLARITIN 10 MG PO (10:38)
[2024-10-12] MEDS: SENOKOT PO (10:38)
[2024-10-12] MEDS: ELIQUIS 5 MG PO ×2 (10:38→19:36)
[2024-10-12] MEDS: PEPCID 20 MG PO ×2 (10:39→19:35)
[2024-10-12] MEDS: PROTONIX 40 MG PO (10:39)
[2024-10-12] MEDS: DILANTIN 200 MG PO ×2 (10:39→19:35)
[2024-10-12] MEDS: ZOLOFT 150 MG PO (10:39)
[2024-10-12] MEDS: KLONOPIN 1 MG PO ×2 (10:41→19:36)
[2024-10-12] MEDS: MYRBETRIQ EXTENDED RELEASE 50 MG PO (10:42)
[2024-10-12] MEDS: DELTASONE 40 MG PO (10:42)
[2024-10-12] MEDS: COLACE PO (10:44)
--- NOTE | 2024-10-12 11:17 | CM ---
CM continues to follow for discharge back to [facility] for LTC. [facility] referral updated and sent to Ayla at [facility].
Plan: Pt will return to [facility] when medically stable. CM to coordinate transpot at discharge.
[2024-10-12 11:50] LABS: Glucose - Point of Care 77 mg/dl (70-99)
[2024-10-12 11:51] VITALS: BP 131/58
--- NOTE | 2024-10-12 11:51 | PTCARENOTE ---
Patient with accu check 49 this am. 1/2 amp of dextrose given as patient is NPO for testing. MD notified. Held oral hypoglycemics and lantus. Accu check 108 15 minutes post dextrose. Patient can eat when she returns from testing.
[2024-10-12 13:53] LABS: Glucose - Point of Care 151 mg/dl (70-99)
--- NOTE | 2024-10-12 15:54 | PHA.VAN.FU ---
Vancomycin Assessment / Plan
- Assessment
Renal Function: No New Labs Today
Concomitant Antimicrobials: aztreonam
- Dosing Plan
Continue: Vanc 1250mg Q12H
- Monitoring Plan
Trough Level: 10/13 05:30 to assess for accumulation
- Follow Up
Pharmacy will continue to follow.
Vancomycin Follow UP
- -
Patient Age: 69
Patient Sex: Female
Vancomycin Day #: 4
Indication: Pulmonary/Respiratory
Requesting Provider: Jaden
Pertinent Antimicrobial Allergies:
penicillin - swelling
Height / Weight:
Height 5 ft 3 in
Actual Weight 95 kg
IBW in k.4
Adjusted BW in k.4
Pertinent Past Medical History: BMI ~37
- Vital Signs / Lab Results
Temp Pulse Resp BP Pulse Ox
98.2 F 62 18 131/58 100
10/12/24 11:51 10/12/24 11:51 10/12/24 11:51 10/12/24 11:51 10/12/24 11:51
Lab Results - Chemistry
10/10/24 10/11/24
04:54 07:38
BUN 15 13
Creatinine 0.5 L 0.5 L
Estimated Creat Clear 96 96
Albumin Cancelled 3.2 L
Microbiology Results
10/09/24 00:46 Blood Culture - Preliminary
Blood/Venous No Growth in 72 hours- Final report to follow
10/09/24 00:26 Blood Culture - Preliminary
Blood/Venous No Growth in 72 hours- Final report to follow
Therapeutic Drug Monitoring
Vancomycin Peak 22.6 ug/ml (18-26) 10/10/24 21:58
Vancomycin Trough 13.6 ug/ml (5-20) 10/11/24 07:38
[2024-10-12 15:56] VITALS: BP 146/57
--- NOTE | 2024-10-12 16:35 | W.PN.HOSP.TC ---
Today's Communication/Plan
-
see plan above
Assessment / Plan
Assessment / Plan
69-year-old female with COPD was admitted to [facility] for COPD exacerbation and was discharged 09/26/[address]24
[address] scan of the chest reviewed by me- pneumonitis pattern
CVS: S1-S2 normal
Chest: rales B/L
Abdomen: Soft, NT / Bowel sounds present
Extremities: No edema
# Fever
Acute hypoxic respiratory insufficiency
Febrile illness
Abnormal chest x-ray chest CT shows- Bilateral peripheral reticular interstitial opacities with a distribution suggestive of a chronic interstitial lung disease such as usual interstitial pneumonia (UIP).
Calcitonin normal
Blood cultures negative
Unclear if infectious pneumonia or inflammatory
Doubt if bacterial with neg procal. Hold further abx.
Consult pulmonary .
Pt is off of O2
# Abnormal urinalysis-on treat as UTI.
Difficulty still in because of cognitive impairment
Culture shows mixed cheyanne suggestive of contamination.
Will obtain a straight catheter urine specimen to evaluate further.
# Advanced COPD/asthma with acute exacerbation
No reactive airways but with ILD and evidence of wheeze prior to today cw steroids
Albuterol
# Elevated transaminases-Check USS abdomen
# Hyperlipidemia-continue statin. We may need to hold if LFTs go up
# Chronic hypercapnia
# Diabetes-Usees Lantus 26 units twice daily, metformin 1000 mg twice daily, trazodone, glipizide 10 mg twice daily Accu-Cheks and sliding scale coverage.
Episodes of hypoglycemia noted. Hold a.m. dose of Lantus and decrease the dose of p.m. Lantus. Hold oral hypoglycemic agents from today.
# Chronic HFpEF
ECHO 09/23/24-Normal biventricular size and systolic function without regional wall motion abnormality. No significant valvular disease. At least moderate pulmonary hypertension.
# Moderate pulmonary hypertension
# Paroxysmal atrial fibrillation-continue Eliquis
# GERD-Add Pepscid
# Anxiety - continue Klonopin, sertraline
# Seizures- continue Dilantin, Depakote . Levels low. Initially had increased Dilantin to 300 twice daily. Discussed with neurology on-call today. Since patient has not had any seizures advised to go back to Dilantin 200 mg twice daily dose
along with Depakote previous dose. Even though levels are low continue with outpatient dose only.
# Insomnia - continue melatonin, trazodone
# Dementia - Past month she had a decline per discussion with .
# Obesity with a BMI of 37
# DVT prophylaxis-Eliquis
# Full code
Dr Carney spoke on 10/10/2024-spoke to patient's . [facility] Denies sleep apnea. He was updated regarding patient's condition. She does not see a neurologist. CODE STATUS addressed. He wants
to keep her as a full code
DW RN
Total time spent on today's encounter was 52 minutes which included time spent in counseling the patient/family regarding diagnosis and treatment plan as listed above, goals of care, and symptom management. Case was discussed with nursing staff,
specialists, and care coordinators/case management. All labs and imaging personally reviewed by me. Remainder the time spent in detailed review of previous records, lab data, imaging, and other medical provider documentation.
Anticipated Discharge: > 48 hours
Subjective/Interval History
-
Date of Service: October 12, 2024
Patient is denying any shortness of breath or chest pain. Denying any cough. She she does have a history of cognitive impairment.
Objective Data
-
Vital Signs:
Vital Signs
Temp Pulse Resp BP Pulse Ox
97.4 F 62 18 146/57 100
10/12/24 15:56 10/12/24 15:56 10/12/24 15:56 10/12/24 15:56 10/12/24 15:56
I&O
10/11/24 10/12/24 10/13/24
06:59 06:59 06:59
Intake Total 1200 / 1200
Output Total 700 / 700
Balance 500 / 500
Review of Systems
-
Unable to obtain full review of systems at this time due to: Other (Cognitive impairment)
Physical Exam
-
General: Comfortable
HEENT: Moist Mucous Membranes
Respiratory: Non Labored Respirations; Negative Accessory Resp Muscle Use
Cardiac: Regular Rhythm and S1/S2
Neuro: Awake, Alert and Oriented (self)
Psych: Calm and Confused; Negative Agitated
[2024-10-12 17:03] LABS: Glucose - Point of Care 229 mg/dl (70-99)
[2024-10-12] MEDS: DEPAKOTE (12 HR RELEASE) 500 MG PO (17:09)
[2024-10-12] MEDS: NOVOLOG FLEXPEN-LOW RESISTANCE 2 UNITS SC (17:12)
[2024-10-12] MEDS: COLACE 100 MG PO (19:35)
[2024-10-12] MEDS: SENOKOT 17.2 MG PO (19:36)
[2024-10-12 19:49] VITALS: BP 103/50
[2024-10-12] MEDS: ROXICODONE 5 MG PO (20:31)
[2024-10-12] MEDS: MELATONIN 9 MG PO (21:12)
[2024-10-12] MEDS: DESYREL 25 MG PO (21:12)
[2024-10-12] MEDS: LIPITOR 40 MG PO (21:12)
[2024-10-12] MEDS: ZYRTEC 10 MG PO (21:12)
[2024-10-12 21:14] LABS: Glucose - Point of Care 201 mg/dl (70-99)
[2024-10-12] MEDS: LANTUS 0.09 UNITS SC (21:26)
[2024-10-12] MEDS: BENADRYL 6.25 MG IV (22:38)
[2024-10-12 23:20] VITALS: BP 126/64
[2024-10-13] MEDS: DEPAKOTE (12 HR RELEASE) 500 MG PO ×4 (00:05→22:40)
[2024-10-13] MEDS: NEURONTIN 600 MG PO ×4 (00:05→22:40)
[2024-10-13] MEDS: OCEAN, SALINE MIST NASAL ×5 (01:40→19:39)
[2024-10-13 04:01] VITALS: BP 95/66
[2024-10-13 05:11] VITALS: BMI 37.9
[2024-10-13] MEDS: ELIQUIS 5 MG PO ×2 (07:33→19:39)
[2024-10-13] MEDS: KLONOPIN 1 MG PO ×2 (07:33→19:39)
[2024-10-13] MEDS: DILANTIN 200 MG PO ×2 (07:33→19:38)
[2024-10-13] MEDS: ZOLOFT 150 MG PO (07:33)
[2024-10-13] MEDS: CLARITIN 10 MG PO (07:33)
[2024-10-13] MEDS: MYRBETRIQ EXTENDED RELEASE 50 MG PO (07:33)
[2024-10-13] MEDS: PEPCID 20 MG PO ×2 (07:33→19:38)
[2024-10-13] MEDS: DELTASONE 40 MG PO (07:34)
[2024-10-13] MEDS: OCEAN, SALINE MIST 1 SPRAYS NASAL (07:35)
[2024-10-13] MEDS: PROTONIX 40 MG PO (07:35)
[2024-10-13] MEDS: COLACE PO ×2 (07:36→19:35)
[2024-10-13] MEDS: SENOKOT PO ×2 (07:37→19:40)
[2024-10-13] MEDS: NOVOLOG FLEXPEN-LOW RESISTANCE SC (07:39)
[2024-10-13 07:47] VITALS: BP 124/54
--- NOTE | 2024-10-13 07:53 | CON.PUL ---
Consultation
Consultation Request
Date/Time Consultation Requested: 10/13/2024-8 AM
Date/Time Consultation Performed: 10/13/2024-8:30 AM
Requesting Provider: Hospitalist
Performing Provider: Dr. Nielson
Reason for Consultation: Shortness of breath
Medical History
-
Chief Complaint: Shortness of breath
History of Present Illness:
69-year-old former smoking female with underlying COPD and traumatic brain injury also has a history of hypertension, atrial fibrillation, anxiety,Presented with increasing shortness of breath, weakness and fever noted to be hypoxemic-pulmonary
consulted for possible interstitial lung disease, persistent hypoxemia 10/13/24. Patient is quite a poor historian. She denies any shortness of breath at rest but admits to some chest congestion and productive cough. She does not complain of any
current chest pain, pleurisy, abdominal pain, She is a former smoker who quit several months ago.
Past Medical History
Past Medical History: None (Hypertension. Anxiety. Atrial fibrillation. Diabetes. Obesity. TAYLER suspected. COPD. Former plyxft-69-ijnn-year.)
Social History
Tobacco: Former Smoker ( [id number]-izen)
Alcohol: None
Drug: None
Personal: Single
Living: Retirement
Occupational Exposures: No known asbestos exposure
Environmental Exposures: No known tuberculosis exposure
Family History
Family History: Reviewed & Not Pertinent
Allergies / Home Medications
Allergies
Allergy/AdvReac Type Severity Reaction Status Date / Time
acetaminophen [From Tylenol] Allergy Swelling Verified 10/08/24 22:47
aspirin Allergy Swelling Verified 10/08/24 22:47
bee pollen Allergy Swelling Verified 10/08/24 22:47
Fish Containing Products Allergy Swelling Verified 10/08/24 22:47
Milk Containing Products Allergy Swelling Verified 10/08/24 22:47
(Dairy)
[Milk Containing Products]
Penicillins Allergy Swelling Verified 10/08/24 22:47
phenobarbital Allergy Swelling Verified 10/08/24 22:47
shellfish derived Allergy Swelling Verified 10/08/24 22:47
Home Medications
�Medication �Instructions �Recorded �Confirmed �Last Taken �Type
apixaban 5 mg tablet 5 mg PO Q12H Blood Clot 07/14/23 10/09/24 Unknown History
Prevention/Tx
ascorbic acid (vitamin C) 500 mg 500 mg PO DAILY Supplement 07/14/23 10/09/24 Unknown History
tablet
atorvastatin 40 mg tablet 40 mg PO HS High Cholesterol 07/14/23 10/09/24 Unknown History
bisacodyl 10 mg rectal suppository 10 mg AR DAILYPRN PRN if no bm in 07/14/23 10/09/24 Unknown History
(Dulcolax (bisacodyl)) 24hrs after MOM
diphenhydramine HCl 25 mg tablet 25 mg PO Q12H PRN allergies 07/14/23 10/09/24 Unknown History
divalproex 500 mg tablet,delayed 500 mg PO Q8H Neurological 07/14/23 10/09/24 Unknown History
release Condition
gabapentin 600 mg tablet 600 mg PO Q8H Neurological 07/14/23 10/09/24 Unknown History
Condition
glucagon 1 mg/0.2 mL subcutaneous 1 mg SC DAILYPRN PRN hypoglycemia, 07/14/23 10/09/24 Unknown History
auto-injector (Gvoke HypoPen blood sugar <50
2-Pack)
insulin glargine-yfgn 100 unit/mL 26 unit SC BID Diabetes 07/14/23 10/09/24 Unknown History
subcutaneous solution
lidocaine 5 % topical patch 1 patch topical DAILY Pain 07/14/23 10/09/24 Unknown History
magnesium hydroxide 400 mg/5 mL 30 ml PO DAILYPRN PRN if no bm x 3 07/14/23 10/09/24 Unknown History
oral suspension (Milk of Magnesia) days
melatonin 3 mg tablet 9 mg PO HS Sleep 07/14/23 10/09/24 Unknown History
metformin 1,000 mg tablet 1,000 mg PO BID Diabetes 07/14/23 10/09/24 Unknown History
mirabegron 50 mg tablet,extended 50 mg PO DAILY Urinary Issue 07/14/23 10/09/24 Unknown History
release 24 hr (Myrbetriq)
omeprazole 20 mg tablet,delayed 20 mg PO DAILY Gastrointestinal 07/14/23 10/09/24 Unknown History
release Issue
phenytoin 50 mg chewable tablet 200 mg PO Q12H Seizures 07/14/23 10/09/24 Unknown History
propylene glycol 1 %-glycerin 0.3 2 drp BOTH EYES Q4HPRN PRN eye 07/14/23 10/09/24 Unknown History
% eye drops irritation
sertraline 50 mg tablet 50 mg PO DAILY Mental 07/14/23 10/09/24 Unknown History
Health/Anxiety
tramadol 50 mg tablet 50 mg PO Q8HPRN PRN moderate pain 07/14/23 10/09/24 Unknown History
cetirizine 10 mg capsule (Zyrtec) 10 mg PO HS Allergies 09/23/24 10/09/24 Unknown History
diclofenac sodium 1 % topical gel 1 ea topical Q8H Pain 09/23/24 10/09/24 Unknown History
fluticasone propionate 50 2 spray intranasal DAILY Allergies 09/23/24 10/09/24 Unknown History
mcg/actuation nasal
spray,suspension
niacin 500 mg tablet (Niacor) 500 mg PO HS High Cholesterol 09/23/24 10/09/24 Unknown History
sodium chloride 0.65 % nasal spray 1 spray intranasal Q4H Allergies 09/23/24 10/09/24 Unknown History
aerosol (Saline Mist)
albuterol sulfate 90 mcg/actuation 2 puff inhalation R Q4HPRN PRN 10/09/24 10/09/24 Unknown History
aerosol inhaler wheezing
ammonium lactate 12 % lotion 1 applic topical Q12H Skin Issues 10/09/24 10/09/24 Unknown History
benzonatate 100 mg capsule 100 mg PO BID Cough 10/09/24 10/09/24 Unknown History
cholecalciferol (vitamin D3) 50 50 mcg PO DAILY Supplement 10/09/24 10/09/24 Unknown History
mcg (2,000 unit) tablet
clonazepam 0.5 mg tablet 0.5 mg PO DAILY Mental 10/09/24 10/09/24 Unknown History
Health/Anxiety
clonazepam 1 mg tablet 1 mg PO BID Mental Health/Anxiety 10/09/24 10/09/24 Unknown History
cyclobenzaprine 5 mg tablet 5 mg PO DAILY PRN muscle pain 10/09/24 10/09/24 Unknown History
dextromethorphan 20 mg-quinidine 1 cap PO Q12H Cough 10/09/24 10/09/24 Unknown History
10 mg capsule
dextromethorphan 5 mg-benzocaine 6 1 naz PO Q2HPRN PRN cough 10/09/24 10/09/24 Unknown History
mg-menthol 10 mg lozenges
(Chloraseptic Total)
dextromethorphan-guaifenesin 5 20 ml PO Q4HPRN PRN cough 10/09/24 10/09/24 Unknown History
mg-100 mg/5 mL oral liquid
(Robitussin Cough-Chest Congestion
DM)
diclofenac sodium 1 % topical gel 1 ea topical BID Pain 10/09/24 10/09/24 Unknown History
glipizide 10 mg tablet 10 mg PO BID Diabetes 10/09/24 10/09/24 Unknown History
hydrocortisone 1 % topical cream 1 applic topical Q8H Skin Issues 10/09/24 10/09/24 Unknown History
lactase 3,000 unit tablet (Lactaid) 9,000 unit PO TID Lactose 10/09/24 10/09/24 Unknown History
intolerance
loperamide 2 mg tablet 2 mg PO Q4H PRN diarrhea 10/09/24 10/09/24 Unknown History
loratadine 10 mg tablet (Claritin) 10 mg PO DAILY Allergies 10/09/24 10/09/24 Unknown History
mineral oil-hydrophil petrolat 1 applic topical BID Skin Issues 10/09/24 10/09/24 Unknown History
topical ointment (petrolatum
topical ointment)
ondansetron HCl 4 mg tablet 4 mg PO Q8H PRN nausea/vomiting 10/09/24 10/09/24 Unknown History
sertraline 100 mg tablet 100 mg PO DAILY Depression 10/09/24 10/09/24 Unknown History
sodium phosphates 19 gram-7 118 ml AR DAILYPRN PRN if no bm 24 10/09/24 10/09/24 Unknown History
gram/118 mL enema (Fleet Enema) hr after bisacodyl supp
trazodone 100 mg tablet 50 mg PO HS Sleep 10/09/24 10/09/24 Unknown History
Review of Systems
-
Unable to Obtain full review of systems at this time due to: Other (Per HPI)
Vitals / Labs / Diagnostic Testing
Vital Signs
Temp Pulse Resp BP Pulse Ox
97.7 F 59 18 95/66 95
10/13/24 04:01 10/13/24 04:01 10/13/24 04:01 10/13/24 04:01 10/13/24 04:01
Lab Data
10/09/24 06:15
10/11/24 07:38
Microbiology
10/09/24 00:46 Blood/Venous Blood Culture - Preliminary
No Growth in 4 days- Final report to follow
10/09/24 00:26 Blood/Venous Blood Culture - Preliminary
No Growth in 4 days- Final report to follow
10/09/24 00:17 Urine Urine Culture - Final
10/09/24 03:52 Nose MRSA Screen - Final
No Methicillin Resistant Staphylococcus aureus isolated.
Diagnostic Testing:
Physical Exam
-
Exam:
Well-nourished and well-developed in no apparent distress
HEENT-atraumatic, normocephalic
Neck-supple, no JVD, no bruit
Heart-regular rate and rhythm-no murmurs, rubs or gallops
Chest-clear to auscultation, no wheezes, crackles
Back-no tenderness
Abdomen-soft, nontender, nondistended, no hepatosplenomegaly
Extremities-no cyanosis, clubbing, edema and good peripheral pulses
Integument-intact, no rashes, lesions or ecchymosis
Neurology-alert and oriented, nonfocal motor and sensory exam
Assessment
-
69-year-old former smoking female with underlying COPD and dementia also has a history of hypertension, atrial fibrillation, anxiety,Presented with increasing shortness of breath, weakness and fever noted to be hypoxemic-pulmonary consulted for
possible interstitial lung disease, persistent hypoxemia 10/13/24.
COPD/pulmonary fibrosis overlap with acute exacerbation.
Chronic hypercapnia
VBG 09/23/2024--60/120/7.30
Leukocytosis.
Hypoglycemia
UTI
TAYLER/obesity hypoventilation suspected
Transaminitis
Conditions present prior to admission:
COPD/Pulmonary fibrosis overlap
Former 66-mgcp-mtdu smoker-quit August 2024
Hypertension.
Atrial fibrillation.
GERD.
Anxiety.
Morbid obesity.
Seizure disorder.
Insomnia
Dementia
Obstructive sleep apnea suspected.
Plan
Decompensation likely related to suspected underlying COPD/pulmonary fibrosis overlap-chest x-ray recently with interstitial pattern and CT chest 10/09/24 confirms probable Pulmonary fibrosis
Supplemental oxygen.
Assessed discharge supplemental oxygen needs.
Aspiration precautions.
Suspected obesity hypoventilation/TAYLER-CPAP if tolerated.
Prednisone 40 mg with slow taper to 20 mg until reevaluated in the outpatient pulmonary setting.
Nebulizers as needed...
Check cultures.
Monitor temperature curve.
Pro-calcitonin negative.
Observe off antibiotics
Monitor blood sugar.
Insulin supplementation as needed-episode of mild hypoglycemia noted.
Follow LFTs.
Abdominal ultrasound
DVT prophylaxis-Eliquis
GI prophylaxis-on pantoprazole.
Nutrition
Early mobilization.
Depending on family dynamics and patient/ desires-outpatient pulmonary evaluation could be undertaken-PFTs, interstitial lung disease serology, consideration towards steroids or antibiotics-with dementia and retirement status the last 7
years-unclear if aggressive diagnostics and therapeutics desired
Diagnostic data:
.
Chest x-ray 09/23/24-mild pulmonary edema.
Chest x-ray 10/08/24-bilateral interstitial opacifications may reflect interstitial edema versus interstitial fibrosis
CT chest 10/09/24-bilateral peripheral reticular interstitial opacifications consistent with chronic interstitial lung disease such as UIP
Echocardiogram 09/23/24-EF 55-60%, no valvular disease, moderate pulmonary hypertension
Data Reviewed
-
EKG: Report reviewed by me
Radiology: Image personally visualized and interpreted and Report reviewed by me
CT Scan: Image personally visualized and interpreted and Report reviewed by me
Medical Tests (Nuc Med, Echo etc): Report reviewed by me
Labs: Labs reviewed by me
Old Records: Reviewed
Total Time Spent with Patient (in minutes): 55
[2024-10-13] MEDS: ROXICODONE 5 MG PO ×2 (07:57→19:42)
[2024-10-13] MEDS: GLUCOPHAGE 1000 MG PO ×2 (08:01→17:29)
[2024-10-13 08:15] LABS: Glucose - Point of Care 70 mg/dl (70-99)
--- NOTE | 2024-10-13 09:55 | PN.DE.MGMTRT ---
Insulin Management
- -
10/13/2024 Diabetes Management Consult
Patient admitted 10/08 with COPD exacerbation, recently admitted 09/23 to 09/26 for hypoxia. PMH includes CVA, a-fib, asthma, HTN, diabetes, anxiety, depression. Prior to admission was taking 26 units lantus BID, glipizide 10 mg BID, metformin 1000
mg BID, and ss novolog AC. I could not find A1C, ordered.
Patient is from [facility], awake but not a reliable source of information.
Since admission glucose has consistently trended down, insulin has been decreased daily.
Glucose range for past 2 days 47 fasting to 253 pre dinner. Will stop glipizide BID, continue metformin and low corrective insulin today.
May reintroduce ac novolog based on glucose results today.
Discussed with Dr. Chowdhury and patients nurse.
Diabetes History
- -
Type of Diabetes: 2 requiring insulin
Pre-Admission Diabetes Regimen
Insulin Pump Settings
IP Diabetes Regimen
10/12/24 10/12/24 10/12/24
11:48 13:52 17:01
POC Glucose 77 151 H 229 H
10/12/24 10/13/24
21:13 07:39
POC Glucose 201 H 70
Meal type: Lunch
Meal type: Breakfast
Amount consumed: 80%
Patient Education
[2024-10-13 11:55] VITALS: BP 131/94
[2024-10-13 12:29] LABS: Glucose - Point of Care 197 mg/dl (70-99)
[2024-10-13] MEDS: NOVOLOG FLEXPEN-LOW RESISTANCE 1 UNITS SC (12:47)
[2024-10-13] MEDS: DESENEX/MITRAZOL/ZEASORB 1 APPLIC TOPICAL ×2 (12:48→19:38)
[2024-10-13 15:22] LABS: Glycohemoglobin (HgbA1c) 6.9 % (4.0-5.6)
[2024-10-13 15:27] VITALS: BP 150/56
[2024-10-13] MEDS: DUONEB 3 ML INH ×2 (15:40→19:52)
--- NOTE | 2024-10-13 15:49 | W.PN.HOSP.TC ---
Today's Communication/Plan
-
Consult pulm
Assessment / Plan
Assessment / Plan
69-year-old female with COPD was admitted to [facility] for COPD exacerbation and was discharged 09/26/2024
CT scan of the chest reviewed by me- pneumonitis pattern
# Fever
Acute hypoxic respiratory insufficiency
Febrile illness
Abnormal chest x-ray chest CT shows- Bilateral peripheral reticular interstitial opacities with a distribution suggestive of a chronic interstitial lung disease such as usual interstitial pneumonia (UIP).
ProCalcitonin normal
Blood cultures negative
Unclear if infectious pneumonia or inflammatory
Doubt if bacterial with neg procal. Hold further abx.
Consult pulmonary .
Pt is off of O2
# Abnormal urinalysis-on treat as UTI.
Difficulty still in because of cognitive impairment
Culture shows mixed cheyanne suggestive of contamination.
Will obtain a straight catheter urine specimen to evaluate further.
# Advanced COPD/asthma with acute exacerbation
No reactive airways but with ILD and evidence of wheeze prior to today cw steroids
Albuterol
# Elevated transaminases-Check USS abdomen
# Hyperlipidemia-continue statin. We may need to hold if LFTs go up
# Chronic hypercapnia
# Diabetes-Uses Lantus 26 units twice daily, metformin 1000 mg twice daily, trazodone, glipizide 10 mg twice daily Accu-Cheks and sliding scale coverage.
Episodes of hypoglycemia noted. Hold oral hypoglycemic agents and use Insulin and adjust as needed .[id number] . Consult Diabetic RN.
# Chronic HFpEF
ECHO 09/23/24-Normal biventricular size and systolic function without regional wall motion abnormality. No significant valvular disease. At least moderate pulmonary hypertension.
# Moderate pulmonary hypertension
# Paroxysmal atrial fibrillation-continue Eliquis
# GERD-Add Pepscid
# Anxiety - continue Klonopin, sertraline
# Seizures- continue Dilantin, Depakote . Levels low. Initially had increased Dilantin to 300 twice daily. Discussed with neurology on-call today. Since patient has not had any seizures advised to go back to Dilantin 200 mg twice daily dose
along with Depakote previous dose. Even though levels are low continue with outpatient dose only.
# Insomnia - continue melatonin, trazodone
# Dementia - Past month she had a decline per discussion with .
# Obesity with a BMI of 37
# DVT prophylaxis-Eliquis
# Full code
Dr Carney spoke on 10/10/2024-spoke to patient's . [facility]. Denies sleep apnea. He was updated regarding patient's condition. She does not see a neurologist. CODE STATUS addressed. He wants
to keep her as a full code
Anticipated Discharge: 24 - 48 hours
Subjective/Interval History
-
Date of Service: October 13, 2024
Pt is denying any shortness of breath or chest pain.
No cough.
Denies any nausea vomiting.
Patient with underlying cognitive impairment/dementia.
at bedside-says patient quit tobacco smoking since August last year.
Objective Data
-
Vital Signs:
Vital Signs
Temp Pulse Resp BP Pulse Ox
98.1 F 67 18 131/94 97
10/13/24 11:55 10/13/24 15:42 10/13/24 15:42 10/13/24 11:55 10/13/24 15:42
I&O
10/12/24 10/13/24 10/14/24
06:59 06:59 06:59
Intake Total 1200 / 1200 780 / 780
Output Total 700 / 700
Balance 500 / 500 780 / 780
Review of Systems
-
Unable to obtain full review of systems at this time due to: Dementia
Physical Exam
-
General: Comfortable
Respiratory: Clear to Auscultation and Non Labored Respirations; Negative Accessory Resp Muscle Use
Cardiac: Regular Rhythm and S1/S2
Neuro: Awake, Alert and Oriented (self and person)
Psych: Calm
Data Reviewed
-
Labs: Labs Reviewed by me
--- NOTE | 2024-10-13 16:37 | PTOTSP ---
Dysphagia Therapy
Impression: Mild oral and mild-moderate pharyngeal dysphagia noted on recent video swallow study 10/10/2024. At that time, patient aspirated thin liquids with a cough response.
No s/s of aspiration observed with thin liquids this date. Trial liquid advancement. Cognitive changes (prior TBI, dementia) are likely barriers to implementation of swallowing strategies. Supervision/assist warranted for strategies below.
Monitor respiratory status with liquid advancement.
Recommendation:
1. IDDSI Level 6 Soft and Bite Sized, L0 Thin Liquids
2. Medications: in puree
3. Strategies: PO only when awake/alert, full supervision, slow rate, reflux precautions
4. Oral care 3x daily
6. Brief dysphagia therapy at the acute care level
[2024-10-13 17:13] LABS: Glucose - Point of Care 232 mg/dl (70-99)
[2024-10-13] MEDS: NOVOLOG FLEXPEN-LOW RESISTANCE 3 UNITS SC (17:30)
[2024-10-13 19:30] VITALS: BP 111/52
[2024-10-13 21:10] LABS: Glucose - Point of Care 141 mg/dl (70-99)
[2024-10-13] MEDS: DESYREL 25 MG PO (21:15)
[2024-10-13] MEDS: MELATONIN 9 MG PO (21:15)
[2024-10-13] MEDS: LANTUS 0.09 UNITS SC (21:15)
[2024-10-13] MEDS: LIPITOR 40 MG PO (21:15)
[2024-10-13] MEDS: ZYRTEC 10 MG PO (21:16)
[2024-10-13 23:18] VITALS: BP 114/57
[2024-10-14] MEDS: OCEAN, SALINE MIST NASAL ×5 (01:09→17:18)
[2024-10-14 05:05] VITALS: BMI 37.9
[2024-10-14 07:15] VITALS: BP 126/57
[2024-10-14] MEDS: DUONEB 3 ML INH ×3 (07:37→15:15)
--- NOTE | 2024-10-14 07:43 | PN.DE.MGMTRT ---
Insulin Management
- -
10/14/2024: Diabetes Management F/U:
Patient admitted 10/08 with COPD exacerbation, recently admitted 09/23 to 09/26 for hypoxia. PMH includes CVA, a-fib, asthma, HTN, diabetes, anxiety, depression. Prior to admission was taking 26 units Lantus BID, glipizide 10 mg BID, metformin 1000
mg BID, and ss NovoLog AC. I could not find A1C, ordered.
Patient is from [facility], awake but not a reliable source of information.
Since admission glucose has consistently trended down, insulin has been decreased daily.
Glucose range for past 2 days 47 fasting to 253 pre dinner.
Pt awake, alert, oriented, sitting up in bed, offers no complaints, Bill at bedside assisting with breakfast, able to discuss diabetes management.
10/13 glipizide BID was stopped. Glucose range 70 to 232, HS glucose was 141, FBG 78 this AM.
Will make no changes to current regimen: Lantus 9 units daily, Metformin 1000mg BID and low corrective insulin AC.
May reintroduce ac NovoLog based on glucose trend for today.
Will cont to follow
Diabetes History
- -
Type of Diabetes: 2 requiring insulin
Pre-Admission Diabetes Regimen
Lab Results
Hemoglobin A1c 6.9 % (4.0-5.6) H 10/13/24 10:45
Insulin Pump Settings
IP Diabetes Regimen
10/13/24 10/13/24 10/13/24
07:39 12:28 17:12
POC Glucose 70 197 H 232 H
10/13/24
21:09
POC Glucose 141 H
Meal type: Dinner
Meal type: Lunch
Meal type: Breakfast
Amount consumed: 100%
Amount consumed: 100%
Amount consumed: 100%
Patient Education
[2024-10-14 07:51] LABS: Glucose - Point of Care 78 mg/dl (70-99)
[2024-10-14] MEDS: NOVOLOG FLEXPEN-LOW RESISTANCE SC (09:00)
[2024-10-14] MEDS: SENOKOT PO (09:01)
[2024-10-14] MEDS: COLACE PO (09:01)
[2024-10-14] MEDS: NEURONTIN 600 MG PO ×2 (09:05→17:19)
[2024-10-14] MEDS: MYRBETRIQ EXTENDED RELEASE 50 MG PO (09:06)
[2024-10-14] MEDS: PROTONIX 40 MG PO (09:06)
[2024-10-14] MEDS: ELIQUIS 5 MG PO (09:06)
[2024-10-14] MEDS: ZOLOFT 150 MG PO (09:06)
[2024-10-14] MEDS: DILANTIN 200 MG PO (09:06)
[2024-10-14] MEDS: DELTASONE 40 MG PO (09:07)
[2024-10-14] MEDS: DEPAKOTE (12 HR RELEASE) 500 MG PO ×2 (09:07→17:20)
[2024-10-14] MEDS: PEPCID 20 MG PO (09:07)
[2024-10-14] MEDS: CLARITIN 10 MG PO (09:07)
[2024-10-14] MEDS: GLUCOPHAGE 1000 MG PO ×2 (09:07→17:20)
[2024-10-14] MEDS: KLONOPIN 1 MG PO (09:07)
[2024-10-14] MEDS: DESENEX/MITRAZOL/ZEASORB 1 APPLIC TOPICAL (09:07)
--- NOTE | 2024-10-14 10:20 | W.PN.PUL.V3 ---
Today's Communication / Plan
-
.
Wean oxygen.
Prednisone taper.
Outpatient pulmonary evaluation for suspected UIP/IPF if family desires.
We will sign off-. Please call with questions
Assessment
-
69-year-old former smoking female with underlying COPD and dementia also has a history of hypertension, atrial fibrillation, anxiety,Presented with increasing shortness of breath, weakness and fever noted to be hypoxemic-pulmonary consulted for
possible interstitial lung disease, persistent hypoxemia 10/13/24.
COPD/pulmonary fibrosis overlap with acute exacerbation.
Chronic hypercapnia
VBG 09/23/2024--60/120/7.30
Leukocytosis.
Hypoglycemia
UTI
TAYLER/obesity hypoventilation suspected
Transaminitis
Conditions present prior to admission:
COPD/Pulmonary fibrosis overlap
Former [id number] smoker-quit August 2024
Hypertension.
Atrial fibrillation.
GERD.
Anxiety.
Morbid obesity.
Seizure disorder.
Insomnia
Dementia
Obstructive sleep apnea suspected.
Plan
Decompensation likely related to suspected underlying COPD/pulmonary fibrosis overlap-chest x-ray recently with interstitial pattern and CT chest 10/09/24 confirms probable Pulmonary fibrosis
Supplemental oxygen-96%
Assessed discharge supplemental oxygen needs.
Aspiration precautions.
Suspected obesity hypoventilation/TAYLER-CPAP if tolerated.
Prednisone 40 mg with slow taper to 20 mg until reevaluated in the outpatient pulmonary setting.
Nebulizers as needed...
.
Cultures reviewed.
MRSA screen negative.
Blood cultures negative.
Urine culture unrevealing.
Influenza negative
Monitor temperature curve.
Pro-calcitonin negative.
Observe off antibiotics
Monitor blood sugar.
Insulin supplementation as needed-episode of mild hypoglycemia noted.
Follow LFTs.
Abdominal ultrasound
DVT prophylaxis-Eliquis
GI prophylaxis-on pantoprazole.
Nutrition
Early mobilization..
Reviewed with Dr. Chowdhury-pulmonary. We'll sign off-. Please call with questions
Depending on family dynamics and patient/ desires-outpatient pulmonary evaluation could be undertaken-PFTs, interstitial lung disease serology, consideration towards steroids or antibiotics-with dementia and [facility] status the last 7
years-unclear if aggressive diagnostics and therapeutics desired
Diagnostic data:
.
Chest x-ray 09/23/24-mild pulmonary edema.
Chest x-ray 10/08/24-bilateral interstitial opacifications may reflect interstitial edema versus interstitial fibrosis
CT chest 10/09/24-bilateral peripheral reticular interstitial opacifications consistent with chronic interstitial lung disease such as UIP
Echocardiogram 09/23/24-EF 55-60%, no valvular disease, moderate pulmonary hypertension
Subjective Data
-
Date of Service:
Date of Service: October 14, 2024
Chief Complaint: Pulmonary Follow Up and Dyspnea Follow Up
Subjective:
No complaints shortness of breath at rest, chest pain or abdominal pain
Review of Systems
General: Other (per HPI)
Objective Data
Data Reviewed
Vital Signs / I&O:
Vital Signs
Temp Pulse Resp BP Pulse Ox
97.8 F 89 16 126/57 98
10/14/24 07:15 10/14/24 07:39 10/14/24 07:39 10/14/24 07:15 10/14/24 07:39
Intake and Output
10/13/24 10/14/24 10/15/24
06:59 06:59 06:59
Intake Total 780 / 780 840 / 840
Balance 780 / 780 840 / 840
SaO2: 98
Nasal Cannula flow liters per minute: 1
Physical Exam
General: Respiratory Distress (n) and Comfortable
HEENT: Normocephalic, Anicteric and Moist Mucous Membranes
Cardiovascular: Regular Rhythm
Respiratory: Wheeze (n), Crackles ( basilar), Rhonchi, Non-Labored Respirations, Accessory Resp Muscle Use (n) and Stridor (n)
Labs/Micro/Reports
Lab Data
10/09/24 06:15
10/11/24 07:38
Microbiology
10/09/24 00:46 Blood/Venous Blood Culture - Final
No Growth - Final Report
10/09/24 00:26 Blood/Venous Blood Culture - Final
No Growth - Final Report
[2024-10-14 12:05] LABS: Glucose - Point of Care 160 mg/dl (70-99)
--- NOTE | 2024-10-14 12:17 | CM ---
Chart reviewed for d/c planning. Care ongoing
Pt is LTC resident at [facility]. Updated facility w/ clinicals via [facility]. Ayla/admissions updated.
Pt is off O2 at this time. Pulmonary consulted
No rehab needs at this time
[facility]
Report: [phone]

Plan: Return to [facility] when stable
[2024-10-14] MEDS: NOVOLOG FLEXPEN-LOW RESISTANCE 1 UNITS SC (12:30)
--- NOTE | 2024-10-14 15:49 | W.PN.HOSP.TC ---
Today's Communication/Plan
-
dc
Assessment / Plan
Assessment / Plan
69-year-old female with COPD was admitted to [facility] for COPD exacerbation and was discharged 09/26/[address]24
[address] scan of the chest reviewed by me- pneumonitis pattern
# Fever
Acute hypoxic respiratory insufficiency
Febrile illness
Abnormal chest x-ray chest CT shows- Bilateral peripheral reticular interstitial opacities with a distribution suggestive of a chronic interstitial lung disease such as usual interstitial pneumonia (UIP).
ProCalcitonin normal
Blood cultures negative
Unclear if infectious pneumonia or inflammatory
Doubt if bacterial with neg procal. stable off of further abx.
Appt pulmonary input -recommends OP follow up .
Pt is off of O2
# Abnormal urinalysis-on treat as UTI.
Difficulty still in because of cognitive impairment
Culture shows mixed cheyanne suggestive of contamination.
No further fevers or dysuria .
Stable off abx .
# Advanced COPD/asthma with acute exacerbation
No reactive airways but with ILD and evidence of wheeze prior to today cw steroids
Albuterol
# Elevated transaminases- USS abdomen neg for acute findings
# Hyperlipidemia-continue statin. We may need to hold if LFTs go up
# Chronic hypercapnia
# Diabetes-Uses Lantus 26 units twice daily, metformin 1000 mg twice daily, trazodone, glipizide 10 mg twice daily Accu-Cheks and sliding scale coverage.
Episodes of hypoglycemia noted. Hold oral hypoglycemic agents ;cw HS Insulin and metformin and adjust as needed .appt Diabetic RN.
# Chronic HFpEF
ECHO 09/23/24-Normal biventricular size and systolic function without regional wall motion abnormality. No significant valvular disease. At least moderate pulmonary hypertension.
# Moderate pulmonary hypertension
# Paroxysmal atrial fibrillation-continue Eliquis
# GERD-Add Pepscid
# Anxiety - continue Klonopin, sertraline
# Seizures- continue Dilantin, Depakote . Levels low. Initially had increased Dilantin to 300 twice daily. Discussed with neurology on-call today. Since patient has not had any seizures advised to go back to Dilantin 200 mg twice daily dose
along with Depakote previous dose. Even though levels are low continue with outpatient dose only.
# Insomnia - continue melatonin, trazodone
# Dementia - Past month she had a decline per discussion with .
# Obesity with a BMI of 37
# DVT prophylaxis-Eliquis
# Full code
Medically stable for dc to NH
Total time dc 32 min
Anticipated Discharge: Today
Subjective/Interval History
-
Date of Service: October 14, 2024
Pleasantly confused
Objective Data
-
Vital Signs:
Vital Signs
Temp Pulse Resp BP Pulse Ox
97.8 F 78 16 126/57 96
10/14/24 07:15 10/14/24 15:17 10/14/24 15:17 10/14/24 07:15 10/14/24 15:17
I&O
10/13/24 10/14/24 10/15/24
06:59 06:59 06:59
Intake Total 780 / 780 840 / 840
Balance 780 / 780 840 / 840
Review of Systems
-
Unable to obtain full review of systems at this time due to: Dementia
Respiratory: Denies Trouble Breathing
Cardiac: Denies Chest Pain
Abdomen/GI: Denies Abdominal Pain, Nausea or Vomiting
Neuro: Denies Dizzy
Physical Exam
-
General: Comfortable
HEENT: Moist Mucous Membranes
Respiratory: Crackles (bibasal); Negative Wheezes, Non Labored Respirations or Accessory Resp Muscle Use
Cardiac: Regular Rhythm and S1/S2
GI: Soft
Neuro: Awake, Alert and Oriented (self)
Psych: Calm and Confused; Negative Agitated
[2024-10-14 15:59] VITALS: BP 110/58
--- NOTE | 2024-10-14 16:25 | CM ---
Pt stable for d/c today. Pt is off O2.
Per Ayla/Archie Mancilla, can accept pt back today. Ayla requested a 7pm transport time
Need ambulance transport. principal administrative clerk given forms w/ asking time of 7pm
IMM reviewed w/ spouse as pt is confused. Copy on chart
[facility]
Report: [phone]

Plan: Return to [facility] via ambulance. 7pm requesting time
[2024-10-14 16:50] LABS: Glucose - Point of Care 251 mg/dl (70-99)
[2024-10-14] MEDS: NOVOLOG FLEXPEN-LOW RESISTANCE 3 UNITS SC (17:49)
[2024-10-14 19:15] VITALS: BP 137/64
[2024-10-14] MEDS: DUONEB INH (19:52)
== END 2024-10-14 20:48 | DRG 191 ==
LOC: 4 EAST ACU 02:59
PROVIDERS: Hospitalist; Nurse Practitioner; Physician Assistant; ADMITTING PHYSICIAN Internal Medicine; ATTENDING PHYSICIAN Internal Medicine; CONSULT PHYSICIAN Internal Medicine Critical Care Medicine; EMERGENCY PHYSICIAN Emergency Medicine
DX: J44.1 Chronic obstructive pulmonary disease with (acute) exacerbation (principal); E66.2 Morbid (severe) obesity with alveolar hypoventilation; N39.0 Urinary tract infection, site not specified; I50.32 Chronic diastolic (congestive) heart failure; F03.93 Unspecified dementia, unspecified severity, with mood disturbance; F03.94 Unspecified dementia, unspecified severity, with anxiety; J84.9 Interstitial pulmonary disease, unspecified; E11.9 Type 2 diabetes mellitus without complications; G40.909 Epilepsy, unspecified, not intractable, without status epilepticus; R06.89 Other abnormalities of breathing; R09.02 Hypoxemia; I11.0 Hypertensive heart disease with heart failure; I48.0 Paroxysmal atrial fibrillation; E78.00 Pure hypercholesterolemia, unspecified; K21.9 Gastro-esophageal reflux disease without esophagitis; G47.00 Insomnia, unspecified; J84.10 Pulmonary fibrosis, unspecified; Z68.37 Body mass index [BMI] 37.0-37.9, adult; Z20.822 Contact with and (suspected) exposure to COVID-19; Z79.01 Long term (current) use of anticoagulants; Z79.4 Long term (current) use of insulin; Z79.85 Long-term (current) use of injectable non-insulin antidiabetic drugs; Z79.84 Long term (current) use of oral hypoglycemic drugs; Z79.899 Other long term (current) drug therapy; Z88.6 Allergy status to analgesic agent; Z88.0 Allergy status to penicillin; Z87.820 Personal history of traumatic brain injury; Z87.891 Personal history of nicotine dependence
CPT/HCPCS: 51701; 71045; 71250; 74230; 76700; 80048; 80053; 80076; 80164; 80185; 80202; 81003; 81015; 82248; 82962; 83036; 83605; 84132; 84145; 85025; 85027; 87040; 87070; 87086; 87502; 87811; 92526; 92610; 92611; 94640; 96361; 96365; 96366; 96367; 97162; 97530; 99285; 99406

== ENCOUNTER 2024-12-03 22:18 | Emergency (ER) | payer MEDICARE, OTHER, SELFPAY ==
[2024-12-03 22:34] VITALS: BP 138/52; BMI 32.8
--- NOTE | 2024-12-03 22:38 | ED.GENMED ---
History of Present Illness
General
Chief Complaint: Change in Mental Status
Source: patient and ambulance crew
Exam Limitations: altered mental status and dementia
Time Seen by Provider: 12/03/24 22:20
Nursing documentation reviewed up to this point in time: agreed with
History of Present Illness
History of Present Illness:
69-year-old female sent in from [facility] for confusion and altered mental status. She does have a history of dementia and according to transfer records, she is more confused than normal. History is limited due to patient condition.
Past History
Past History
ED Past Medical History: Arrthythmia (afib), Asthma, CVA, HTN, NIDDM, Psychiatric (anxiety, depression) and Other (Migraine, UTI, )
ED Past Surgical History: Appendectomy, Cholecystectomy, ( X4), Gynecological (Hysterectomy), Tonsilectomy and Other (Trach)
Social History
Tobacco: Smoker
Alcohol: None
Drug: None
Personal:
Living: detention
Phy Exam
General Physical Exam
General Presentation: mild distress
General age: appears older than age
General Skin: warm and dry
General Habitus: elderly
General Mental: confused and usual mental status
General Hydration: dry mucous membranes
ENT Exam
ENT Exam: EOMI, pharynx normal, neck supple and normocephalic
Eye Exam
Eye Exam: PERRL, cornea clear and conjunctiva normal
Cardiovascular Exam
Cardiovascular Exam: regular rate/rhythm, no edema, no murmur and normal peripheral pulses
Pulmonary Exam
Pulmonary Exam: lungs clear, no respiratory distress, no rales, no crackles, no rhonchi, no stridor, no wheezing and no cough
Gastrointestinal Exam
Gastrointestinal Exam: normal bowel sounds, non tender, soft, no organomegaly, no pulsatile mass and non distended
Neurological Exam
Neurological Exam: alert, oriented x3, no motor deficits and speech normal
Musculoskeletal Exam
Musculoskeletal Exam: full ROM and no edema
Skin Exam
Skin Exam: normal color, warm/dry, no rash and no petechia
Psychiatric Exam
Psychiatric Exam: normal mood/affect
Course
Orders/Labs/Results
Orders:
Orders
12/03/24 22:32
CT Head W/o Iv Contrast Urgent
Comment:
Reason For Exam: Confusion
Cardiac Monitoring- Treatment ONCE
12/03/24 22:37
Electrocardiogram (*1) Stat
Reason for Study: Other
Other Reason for Exam: neuro symptoms
EKG- Treatment ONCE
0.9% Sodium Chloride 1000 ml [Nss] 1,000 ml IV BOLUS
12/03/24 22:39
Complete Blood Count/With Diff Urgent
Comprehensive Metabolic Panel Urgent
NT-proBNP Urgent
Comment: ADD ON
PTT Urgent
Prothrombin Time Urgent
Troponin I Urgent
CR Chest - 2 Views Urgent
Comment:
Reason For Exam: confusion
12/03/24 23:07
Add On- LAB Urgent
Tests Added?: pro-bnp
12/03/24 23:09
0.9% Sodium Chloride 500 ml [Nss] 500 ml IV BOLUS
12/04/24 06:01
Urinalysis Reflex To Culture Urgent
Date Specimen was Collected: 12/04/24
Time Specimen was Collected: 05:58
Urine Microscopic Reflex Cult Urgent
Urine Culture Urgent
NIKKIE Source: U
Specimen Description:
Date Specimen was Collected: 12/04/24
Time Specimen was Collected: 05:58
Abnormal Lab Results
12/03/24 12/04/24
22:39 06:01
WBC 11.6 H 10^3/uL
(4.8-10.8)
RBC 3.77 L 10^6/uL
(4.20-5.40)
MCV 100.5 H fL
(81.0-99.0)
MCH 33.7 H pg
(27.0-31.0)
RDW 16.4 H %
(11.5-14.5)
Abs Immat Gran (auto) 0.2 H 10^3/uL
(0-0.05)
Absolute Monos (auto) 1.0 H 10^3/uL
(0.1-0.6)
Absolute Eos (auto) 0.9 H 10^3/uL
(0-0.7)
Immature Gran % 1.3 H %
(0-0.5)
Eosinophils % 7.5 H %
(0-6)
PT 23.2 H Sec
(11.4-14.6)
APTT 36.1 H Sec
(23.4-35.0)
Carbon Dioxide 31 H mmol/L
(22-30)
Creatinine 0.5 L mg/dL
(0.6-1.0)
Glucose 185 H mg/dl
(70-99)
AST 38 H U/L
(14-36)
Urine Ketones 1+ A
(Negative)
Ur Occult Blood Reflex 2+ A
(Negative)
Leukocyte Esterase Rfl 3+ A
(Negative)
Urine Albumin (Reflex) 3+ A
(Neg - Trace)
12/03/24 22:39
12/03/24 22:39
Vital Signs
Initial and Last Documented VS:
Initial Vital Signs
Temp Pulse Resp BP Pulse Ox
99.0 F 67 18 138/52 92
12/03/24 22:34 12/03/24 22:34 12/03/24 22:34 12/03/24 22:34 12/03/24 22:34
Last Documented Vital Signs
Temp Pulse Resp BP Pulse Ox
99.0 F 61 18 100/54 98
03/01/25 22:34 12/04/24 05:45 12/04/24 05:45 12/04/24 05:00 12/04/24 05:45
*Critical Care Note
Total Time (30-74mins, 75-104mins- exclusive of procedures): Not Applicable
Update Note
Update Note:
NONCONTRAST HEAD CT
IMPRESSION
Compared to 07/14/2023
No evidence of acute intracranial abnormality. No evidence of hemorrhage or mass.
Mild periventricular and subcortical regions of low attenuation likely representing chronic small vessel ischemic disease. Moderate old left temporal infarct. No CT criteria for an acute ischemic event, however CT has a diminished sensitivity for
hyperacute or acute on chronic stroke.
Ventricles and sulci are unremarkable.
Bones are unremarkable.
Sinuses are unremarkable.
ED Attending Note
-
Portions of this chart may have been created with voice recognition software.� Occasional wrong word or��sound alike� substitutions may have occurred due to the inherent limitations of voice recognition software.
Discharge Plan
Departure
Patient Disposition: [facility]/SNF
Date of Disposition: 12/04/24
Time of Disposition: 06:47
Discharge Problem:
Dementia
Instructions: Altered Mental Status (DC)
Prescriptions:
No Action
atorvastatin 40 mg tablet
40 mg PO HS
gabapentin 600 mg Tablet
600 mg PO Q8H
melatonin 3 mg Tablet
9 mg PO HS
phenytoin 50 mg tablet,chewable
200 mg PO Q12H
divalproex 500 mg tablet,delayed release (DR/EC)
500 mg PO Q8H
tramadol 50 mg tablet
50 mg PO Q8HPRN PRN (Reason: moderate pain)
magnesium hydroxide [Milk of Magnesia] 400 mg/5 mL Suspension
30 ml PO DAILYPRN PRN (Reason: if no bm x 3 days)
ascorbic acid (vitamin C) 500 mg Tablet
500 mg PO DAILY
bisacodyl [Dulcolax (bisacodyl)] 10 mg Suppository
10 mg OH DAILYPRN PRN (Reason: if no bm in 24hrs after MOM)
metformin 1,000 mg Tablet
1,000 mg PO BID
diphenhydramine HCl 25 mg Tablet
25 mg PO Q12H PRN (Reason: allergies)
lidocaine 5 % Adhesive Patch,Medicated
1 patch TOPICAL DAILY
Rx Instructions:
apply to right shoulder and right knee
sertraline 50 mg tablet
50 mg PO DAILY
Rx Instructions:
take with 100mg = 150mg total
propylene glycol-glycerin 1-0.3 % Drops
2 drp BOTH EYES Q4HPRN PRN (Reason: eye irritation)
omeprazole 20 mg Tablet,Delayed Release (Dr/Ec)
20 mg PO DAILY
mirabegron [Myrbetriq] 50 mg tablet extended release 24 hr
50 mg PO DAILY
apixaban 5 mg Tablet
5 mg PO Q12H
Gvoke HypoPen 2-Pack 1 mg/0.2 mL Auto-Injector
1 mg SC DAILYPRN PRN (Reason: hypoglycemia, blood sugar <50)
Saline Mist 0.65 % Aerosol,[place]
1 spray INTRANASAL Q4H
Rx Instructions:
1 spray each nostril
niacin [Niacor] 500 mg Tablet
500 mg PO HS
fluticasone propionate 50 mcg/actuation [place],Suspension
2 spray INTRANASAL DAILY
Patient Comments:
BOTH NOSTRILS
diclofenac sodium 1 % Gel
1 ea TOPICAL Q8H
Rx Instructions:
apply to right shoulder
Zyrtec 10 mg Capsule
10 mg PO HS
ammonium lactate 12 % Lotion
1 applic TOPICAL Q12H
Rx Instructions:
apply to legs
ondansetron HCl 4 mg Tablet
4 mg PO Q8H PRN (Reason: nausea/vomiting)
clonazepam 0.5 mg Tablet
0.5 mg PO DAILY
sertraline 100 mg Tablet
100 mg PO DAILY
Rx Instructions:
take with 50mg = 150mg total
clonazepam 1 mg Tablet
1 mg PO BID
benzonatate 100 mg Capsule
100 mg PO BID
hydrocortisone 1 % Cream
1 applic TOPICAL Q8H
Rx Instructions:
apply to R lateral back/upper butt for red, flat, itchy rash
albuterol sulfate 90 mcg/actuation Hfa Aerosol Inhaler
2 puff INHALATION R Q4HPRN PRN (Reason: wheezing)
loratadine [Claritin] 10 mg Tablet
10 mg PO DAILY
cyclobenzaprine 5 mg Tablet
5 mg PO DAILY PRN (Reason: muscle pain)
diclofenac sodium 1 % Gel
1 ea TOPICAL BID
Rx Instructions:
apply to R knee
dextromethorphan-quinidine 20-10 mg Capsule
1 cap PO Q12H
Rx Instructions:
for excessive crying
Chloraseptic Total 5-6-10 mg Lozenge
1 naz PO Q2HPRN PRN (Reason: cough)
petrolatum Ointment
1 applic TOPICAL BID
trazodone 100 mg Tablet
50 mg PO HS
loperamide 2 mg Tablet
2 mg PO Q4H PRN (Reason: diarrhea)
Rx Instructions:
max dose 16mg/day
dextromethorphan-guaifenesin [Robitussin Cough-Chest Michael DM] 5-100 mg/5 mL Liquid
20 ml PO Q4HPRN PRN (Reason: cough)
lactase [Lactaid] 3,000 unit Tablet
9,000 unit PO TID
Fleet Enema 19-7 gram/118 mL Enema
118 ml OH DAILYPRN PRN (Reason: if no bm 24 hr after bisacodyl supp)
cholecalciferol (vitamin D3) 50 mcg (2,000 unit) Tablet
50 mcg PO DAILY
docusate sodium 100 mg Capsule
100 mg PO BID Qty: 1 0RF
prednisone 10 mg tablet
30 mg PO DAILY Qty: 1 0RF
Rx Instructions:
taper by 10mg every two days and stop
polyethylene glycol 3350 17 gram Powder In Packet
17 g PO DAILY Qty: 1 0RF
insulin glargine-yfgn 100 unit/mL solution
9 unit SC HS Qty: 0 0RF
Referrals:
UNKNOWN - PT DOES,NOT KNOW [Family Provider] -
Interventions
Interventions:
*Risk Screen - Suicide Last Done: 12/03/24 22:34
*General Assessment Last Done: 12/03/24 22:34
*Neglect/Abuse Screening Last Done: 12/03/24 22:34
ED- Fall Risk Assessment Last Done: 12/04/24 00:00
*ED COVID-19 Vaccine History Last Done: 12/03/24 22:34
ED- Neurological Assessment Last Done: 12/04/24 00:00
ED- Cardiac Assessment Last Done: 12/04/24 00:00
Discharge Date and Time
Print Language: SINHALA
[2024-12-03 22:48] LABS: % Basophils 0.9 % (0-2); % Eosinophils 7.5 % (0-6); % Immature Granulocytes 1.3 % (0-0.5); % Lymphocytes 29.1 % (20.5-51.1); % Monocytes 8.6 % (1.7-9.3); % Neutrophils 52.6 % (42.2-75.2); Absolute Basophils 0.1 10^3/uL (0-0.2); Absolute Eosinophils 0.9 10^3/uL (0-0.7); Absolute Immature Granulocytes 0.2 10^3/uL (0-0.05); Absolute Lymphocytes 3.4 10^3/uL (1.2-3.4); Absolute Neutrophils 6.1 10^3/uL (1.4-6.5); Hematocrit 37.9 % (37.0-47.0); Hemoglobin 12.7 g/dL (12.0-16.0); Mean Corp Hgb Conc. 33.5 g/dL (33.0-37.0); Mean Corpuscular Hgb 33.7 pg (27.0-31.0); Mean Corpuscular Volume 100.5 fL (81.0-99.0); Mean Platelet Volume 10.1 fL (7.4-10.4); Nucleated Red Blood Cells % 0 %; Platelet Count 257 10^3/uL (130-400); Red Blood Cell Count 3.77 10^6/uL (4.20-5.40); Red Cell Dist. Width 16.4 % (11.5-14.5); White Blood Cell Count 11.6 10^3/uL (4.8-10.8)
[2024-12-03 22:54] LABS: INR 2.05; PT 23.2 Sec (11.4-14.6)
[2024-12-03 22:55] LABS: APTT 36.1 Sec (23.4-35.0)
[2024-12-03 23:00] VITALS: BP 119/61
[2024-12-03 23:09] LABS: Troponin I < 0.012 ng/ml
[2024-12-03] MEDS: NSS 500 IV (23:10)
[2024-12-03 23:14] LABS: ALT (SGPT) 30 U/L (0-35); AST (SGOT) 38 U/L (14-36); Albumin 3.8 g/dl (3.5-5.0); Alkaline Phosphatase 83 U/L (38-126); Blood Urea Nitrogen 12 mg/dl (7-17); Carbon Dioxide 31 mmol/L (22-30); Chloride 101 mmol/L (98-107); Estimated Creatinine Clearance 100 ml/min; Glucose 185 mg/dl (70-99); Sodium 138 mmol/L (135-145); Total Bilirubin 0.4 mg/dl (0.2-1.3); Total Protein 6.6 g/dl (6.3-8.2); eGFR > 60.00
[2024-12-03 23:35] LABS: NT-proBNP 109 pg/ml
[2024-12-04] VITALS (12 sets, daily range): BP systolic 100–129; BP diastolic 50–71
--- NOTE | 2024-12-04 04:25 | EDRN ---
Patient is sleeping at this time, will continue to monitor
[2024-12-04 06:38] LABS: Urine Albumin 3+ (Neg - Trace); Urine Bilirubin Negative (Negative); Urine Character Cloudy (Clear); Urine Color Yellow; Urine Glucose Negative (Negative); Urine Ketone 1+ (Negative); Urine Leukocyte 3+ (Negative); Urine Nitrite Negative (Negative); Urine Occult Blood 2+ (Negative); Urine Specific Gravity 1.025 (<1.030); Urine Urobilinogen Negative (Neg - 1+)
[2024-12-04 06:46] LABS: Urine Squamous Cell 0-2 /LPF (Few); Urine White Cell >100 /HPF (0-5)
--- NOTE | 2024-12-04 07:46 | EDRN ---
this RN called verbal report to Archie Mancilla at [phone] and notified staff that the pt was going to be sent back
--- NOTE | 2024-12-04 09:39 | EDRN ---
this RN called Archie Mancilla and confirmed that the pt is on 4L NC at all times
== END 2024-12-04 09:58 ==
LOC: EMR 22:18
PROVIDERS: EMERGENCY PHYSICIAN Student in an Organized Health Care Education/Training Program
DX: R41.82 Altered mental status, unspecified (principal); F03.93 Unspecified dementia, unspecified severity, with mood disturbance; F03.94 Unspecified dementia, unspecified severity, with anxiety; E11.9 Type 2 diabetes mellitus without complications; F17.200 Nicotine dependence, unspecified, uncomplicated; I10 Essential (primary) hypertension; I48.91 Unspecified atrial fibrillation; J45.909 Unspecified asthma, uncomplicated; Z86.73 Personal history of transient ischemic attack (TIA), and cerebral infarction without residual deficits; Z87.440 Personal history of urinary (tract) infections; Z90.49 Acquired absence of other specified parts of digestive tract; Z90.710 Acquired absence of both cervix and uterus
CPT/HCPCS: 99284; 96360; 70450; 71046; 80053; 81003; 81015; 83880; 84484; 85025; 85610; 85730; 87086; 93005